=== PATIENT | male | born 1945 | race Caucasian/White ===

== ENCOUNTER 2017-03-26 06:57 | Day surgery (SDC) | payer MEDICARE, BC ==
[~2017-03-26 06:57] MED LIST: Lactated Ringers 1,000 ML IV SCH; Lidocaine 1%/Sod Bicarbonate in NS 8.4% 1 ML Syringe PRN; Sodium Chloride 0.9% 10 ML Syringe FLUSH PRN
[2017-03-26] MEDS ORDERED: Propofol 200 MG/20 ML SDV ONE ×2 (07:35→10:14)
--- NOTE | 2017-03-26 07:39 | PCM.PREANE ---
Preanesthetic Assessment - Anesthesia/Transfusion/Family Hx Anesthesia History: Prior Anesthesia Without Reaction Family History of Anesthesia Reaction: No Transfusion History: Prior Transfusion Without Reaction Intubation History: Unknown - Review of Systems General: No Symptoms Pulmonary: No Symptoms Cardiovascular: No Symptoms Gastrointestinal: No Symptoms Neurological: No Symptoms Other: Reports: None - Physical Assessment NPO Status Date: 03/26/17 NPO Status Time: 22:00 Pulse: 50 O2 Sat by Pulse Oximetry: 95 Respiratory Rate: 16 Blood Pressure: 122/77 Temperature: 97 C Height: 1.78 m ASA Class: 3 Airway Class: Mallampati = 1 Dentition: Reports: Missing Tooth/Teeth (missing multiple ) Thyro-Mental Finger Breadths: 3 Mouth Opening Finger Breadths: 5 ROM/Head Extension: Full Lungs: Clear to Auscultation, Normal Respiratory Effort Cardiovascular: Regular Rate, Regular Rhythm - Allergies Allergies/Adverse Reactions: Allergies Allergy/AdvReac Type Severity Reaction Status Date / Time No Known Allergies Allergy Verified 09/09/14 13:16 - Blood Blood Available: No - Anesthesia Plan Beta [place]: Carvedilol Med Last Dose Date: 03/25/17 Med Last Dose Time: 22:00 - Acknowledgements Anesthesia Type Planned: MAC Pt an Appropriate Candidate for the Planned Anesthesia: Yes Alternatives and Risks of Anesthesia Discussed w Pt/Guardian: Yes Pt/Guardian Understands and Agrees with Anesthesia Plan: Yes PreAnesthesia Questionnaire HEENT History: Reports: Sinusitis Cardiovascular History: Reports: Afib, Angina, Other (See Below) Other Cardiovascular History: IVC filter, chest pain, heart disease Respiratory History: Reports: Bronchitis, Recurrent, PE Genitourinary History: Reports: BPH, Urinary Incontinence, Other (See Below) Other Genitourinary History: urinary frequency, overactive bladder HEALTHCARE ACCOUNT MANAGER History: Reports: None Musculoskeletal History: Reports: Other (See Below) Other Musculoskeletal History: chronic pain syndrome Neurological History: Reports: Neuropathy, Peripheral, Seizure, Other (See Below ) Other Neuro History: convulsions Psychiatric History: Reports: Anxiety, Bipolar, Depression Endocrine/Metabolic History: Reports: Diabetes, Type II, Hypothyroidism Hematologic History: Reports: Anemia, Iron Deficiency, Other (See Below) Other Hematologic History: clotting disorder Immunologic History: Reports: None Oncologic (Cancer) History: Reports: Prostate Dermatologic History: Reports: None - Past Surgical History Head Surgeries/Procedures: Reports: None GI Surgical History: Reports: Colonoscopy, EGD - SUBSTANCE USE Smoking Status *Q: Never Smoker Second Hand Smoke Exposure: No Days Per Week of Alcohol Use: 0 Recreational Drug Use History: No - HOME MEDS Home Medications: Home Meds Acetaminophen [Acetaminophen ER] 650 mg PO Q6H PRN 03/23/17 [History] Acetaminophen/oxyCODONE [Percocet 325-5 MG] 2 tab PO BID 03/23/17 [History] Ascorbate Calcium [Vitamin C] 500 mg PO DAILY 03/23/17 [History] Bacitracin [Bacitracin Oint 1 GM] 1 applic NASBOTH BID 03/23/17 [History] Calcium Carbonate/Vitamin D3 [Calcium 600 + Vit D 400 Softgl] 1 tab PO BID 03/23 [History] Carvedilol [Coreg] 3.125 mg PO BID 03/23/17 [History] Chlorhexidine Gluconate [Peridex 0.12% Rinse] 15 ml PO DAILY 03/23/17 [History] ClonazePAM [KlonoPIN] 1 mg PO BEDTIME 03/23/17 [History] Docusate Sodium 100 mg PO BID 03/23/17 [History] Escitalopram Oxalate [Lexapro] 40 mg PO BID 03/23/17 [History] Ferrous Sulfate [Iron] 325 mg PO BID 03/23/17 [History] Fluticasone Propionate [Flonase Allergy Relief] 1 spray NASBOTH DAILY PRN [History] Gabapentin [Neurontin] 600 mg PO TID 03/23/17 [History] Ibuprofen 400 mg PO Q6H PRN 03/23/17 [History] LORazepam 0.5 mg PO DAILY 03/23/17 [History] LORazepam [Ativan] 0.5 mg PO DAILY 03/23/17 [History] Levothyroxine 125 mcg PO DAILY 03/23/17 [History] Megadrox 2 tab PO DAILY 03/23/17 [History] Miconazole Nitrate [Fungoid Tincture] 1 applic TOP BID 03/23/17 [History] Nitroglycerin [Nitrostat] 0.4 mg SL Q5M PRN 03/23/17 [History] Oxybutynin Chloride [Ditropan Xl] 10 mg PO DAILY 03/23/17 [History] Pantoprazole Sodium [Protonix] 20 mg PO DAILY 03/23/17 [History] Phenazopyridine [Pyridium] 100 mg PO TID 03/23/17 [History] Phenytoin Sodium Extended 200 mg PO BID 03/23/17 [History] Polyethylene Glycol 3350 17 gm PO DAILY 03/23/17 [History] Pravastatin Sodium 5 mg PO DAILY 03/23/17 [History] Saliva Substitution Combo No.9 [Biotene] 1 dose PO QID PRN 03/23/17 [History] Sodium Fluoride [Fluoridex] 1 applic TOP BID 03/23/17 [History] Tamsulosin [Flomax] 0.4 mg PO DAILY 03/23/17 [History] Testadrox 2 tab PO BEDTIME 03/23/17 [History] Vit A/C/E AC/Znox/Cupric Oxide [Eye Vitamin-Minerals Tablet] 1 tab PO DAILY [History] Warfarin Sodium [Coumadin] 7.5 mg PO MOFR 03/23/17 [History] Warfarin [Coumadin] 5 mg PO SUTUWETHSA 03/23/17 [History] Zonisamide [Zonegran] 200 mg PO BID 03/23/17 [History] oxyCODONE ER [OxyCONTIN] 10 mg PO BID 03/23/17 [History] tiZANidine HCl [Tizanidine HCl] 8 mg PO DAILY PRN 03/23/17 [History] - CURRENT (IN HOUSE) MEDS Current Meds: Current Medications Lactated Ringer's (Ringers, Lactated) 1,000 mls @ 125 mls/hr IV ASDIRECTED NEETA Stop: 03/26/17 23:00 Last Admin: 03/26/17 07:25 Dose: 125 mls/hr Lidocaine/Sodium Bicarbonate (Buffered Lidocaine 1% In Ns 8.4%) 0.25 ml .XX ONETIME PRN PRN Reason: Prior to IV Start Stop: 03/26/17 18:00 Last Admin: 03/26/17 07:25 Dose: 0.25 ml Sodium Chloride (Saline Flush) 10 ml FLUSH ASDIRECTED PRN PRN Reason: Keep Vein Open Stop: 03/26/17 18:00 Discontinued Medications Lidocaine HCl (Xylocaine-Mpf 1%) Confirm Administered Dose 4 mls @ as directed .ROUTE .[facility] ONE Stop: 03/26/17 07:41 Propofol (Diprivan 20 Ml) Confirm Administered Dose 400 mg .ROUTE .[facility] ONE Stop: 03/26/17 07:36
[2017-03-26] MEDS ORDERED: Lidocaine 1% 4 ML ONE (07:40)
--- NOTE | 2017-03-26 10:12 | PCM.OPNOTE ---
- General Post-Op/Procedure Note Date of Surgery/Procedure: 03/26/17 Operative Procedure(s): EGDwith bx/colonoscopy Pre Op Diagnosis: anemia Post-Op Diagnosis: Same Anesthesia Technique: MAC Primary Surgeon: Cal Estrada EBL in mLs: 0 Complications: None Condition: Good
--- NOTE | 2017-03-26 10:19 | PCM48HPAN ---
Post Anesthesia Note - EVALUATION WITHIN 48HRS OF ANESTHETIC Vital Signs in Normal Range: Yes Patient Participated in Evaluation: Yes Respiratory Function Stable: Yes Airway Patent: Yes Cardiovascular Function Stable: Yes Hydration Status Stable: Yes Pain Control Satisfactory: Yes Nausea and Vomiting Control Satisfactory: Yes Mental Status Recovered: Yes
[2017-03-26 10:44] VITALS: BP 120/73
--- NOTE | 2017-03-26 14:48 | OR ---
DATE OF OPERATION: 03/26/2017 SURGEON: Cal Estrada MD PREOPERATIVE DIAGNOSIS: Anemia. POSTOPERATIVE DIAGNOSIS: Anemia. OPERATION PERFORMED: Esophagogastroduodenoscopy with biopsy. FINDINGS: Mild duodenitis in the posterior portion of the duodenal bulb, pyloric channel normal, antrum showed some inflammation around the antrum and in the body of the stomach suggesting gastritis. Biopsy of the antrum was performed. J-maneuver showed an intact fundus and the hiatus showed a small sliding hiatal hernia. GE junction was viewed with slight irregularity and located at 36 cm. There was a sliding hiatal hernia. Rest of the esophagus was viewed as the scope withdrawn. DESCRIPTION OF PROCEDURE: The patient was taken to the endoscopy room, placed in a supine position, connected to monitoring equipment, given IV sedation. Bite block was inserted and video Olympus gastroscope placed in a posterior oropharynx under direct vision, threaded past the cricopharyngeus, down the esophagus, into the stomach. The stomach was insufflated and the scope passed through the pylorus to the second portion of the duodenum. The second portion of the duodenum, duodenal bulb, and pyloric channel were unremarkable except from petechiae and swelling in the posterior duodenal bulb. The antrum showed a little petechiae and this was also seen in the body of the stomach and select areas. Biopsy of the antrum was performed. J-maneuver was performed showing a hiatal hernia sliding type. Fundus was unremarkable. The scope was then withdrawn to the GE junction which was located about 37 cm to 36 cm, showed irregular Z-line, mild in nature, and no acute inflammation was noted. Rest of the esophagus was viewed as the scope withdrawn, unremarkable. The patient tolerated the procedure, sent to recovery, and specimen sent to Pathology in a labeled container. IV sedation will be continued for the patient for colonoscopy. ANESTHESIA: ESTIMATED BLOOD LOSS: MMODAL /[id number]
--- NOTE | 2017-03-26 14:51 | OR ---
DATE OF OPERATION: 03/26/2017 SURGEON: Cal Estrada MD PREOPERATIVE DIAGNOSIS: Anemia and guaiac-positive stools. POSTOPERATIVE DIAGNOSIS: Anemia and guaiac-positive stools. OPERATION PERFORMED: Colonoscopy to the cecum. FINDINGS: Some mild internal hemorrhoids and some loss of sphincter tone. There is no angiodysplasia, neoplasia, large tumor masses, or ulcerations, or diverticulum noted. ANESTHESIA: Procedure done under IV sedation. DESCRIPTION OF PROCEDURE: The patient was taken to the operating room and connected to monitoring equipment, underwent upper GI endoscopy after IV sedation given. IV sedation was continued for colonoscopy. He was placed in left lateral position. Perianal areas inspected and it was normal. Rectal exam showed weak sphincter tone. A video Olympus colonoscope was introduced into the rectum and threaded up to the cecum, where the appendicular orifice and ileocecal valve were noted. Prep was [place] Cleansing Score grade B, pockets of stool were able to be aspirated around the cecum, sigmoid colon, and rectum. The scope was then slowly withdrawn showing the cecum, ascending colon, transverse colon, descending colon, sigmoid colon, and rectum. Retroflexed view was done. The patient tolerated the procedure, sent to recovery room in a stable condition. He will be followed up with Dr. Flores. ESTIMATED BLOOD LOSS: MMODAL /[id number]
== END 2017-03-26 11:25 | disposition home or self-care (01) ==
LOC: JD.SDS 06:57
PROVIDERS: ATTEND Surgery
PROC: 0DB98ZX Excision of Duodenum, Via Natural or Artificial Opening Endoscopic, Diagnostic (ICD-10-PCS; principal; 2017-03-26)
PROC: 0DJD8ZZ Inspection of Lower Intestinal Tract, Via Natural or Artificial Opening Endoscopic (ICD-10-PCS; 2017-03-26)
DX: K29.80 Duodenitis without bleeding (principal); K44.9 Diaphragmatic hernia without obstruction or gangrene; D50.9 Iron deficiency anemia, unspecified; K64.8 Other hemorrhoids; I48.91 Unspecified atrial fibrillation; E11.42 Type 2 diabetes mellitus with diabetic polyneuropathy; N40.1 Benign prostatic hyperplasia with lower urinary tract symptoms; N39.498 Other specified urinary incontinence; R35.0 Frequency of micturition; E03.9 Hypothyroidism, unspecified; G89.4 Chronic pain syndrome; F31.9 Bipolar disorder, unspecified; G40.909 Epilepsy, unspecified, not intractable, without status epilepticus; F41.9 Anxiety disorder, unspecified; Z79.891 Long term (current) use of opiate analgesic; Z79.01 Long term (current) use of anticoagulants; Z79.899 Other long term (current) drug therapy; Z95.818 Presence of other cardiac implants and grafts; Z98.890 Other specified postprocedural states; Z87.891 Personal history of nicotine dependence; Z85.46 Personal history of malignant neoplasm of prostate; Z86.711 Personal history of pulmonary embolism
CPT/HCPCS: 36415; 43239; 45378; 85610; 88305; J7120; 00810; J2704

== ENCOUNTER 2017-04-11 13:40 | Emergency (ER) | payer MEDICARE, BC, MEDICAID ==
[2017-04-11] MEDS ORDERED: Sodium Chloride 0.9% 10 ML Syringe FLUSH PRN (13:55)
[2017-04-11] MEDS ORDERED: HYDROmorphone 0.5 MG/0.5 ML Syringe IVPUSH ONE (14:51)
--- NOTE | 2017-04-11 15:21 | EDM.PDOC ---
ED HPI GENERAL MEDICAL PROBLEM - General Chief Complaint: Head Injury Stated Complaint: [facility] Time Seen by Provider: 04/11/17 13:44 Source of Information: Reports: Patient History Limitations: Reports: No Limitations - History of Present Illness INITIAL COMMENTS - FREE TEXT/NARRATIVE: The patient was outside walking on the side walk and he bent over to clean something off of the sidewalk and he fell forward and hit his head. He was a little confused when nursing staff got there but when EMS arrived he was talking and alert. He complains of a headache, neck pain, left upper chest pain , bilateral knee pain and left thumb pain. He denies abdominal pain or pelvic pain. Onset: Sudden Duration: Minutes: Location: Reports: Head, Neck, Upper Extremity, Left, Lower Extremity, Left, Lower Extremity, Right Quality: Reports: Sharp Severity: Moderate Improves with: Reports: None Worsens with: Reports: Movement Context: Reports: Activity (He bent over and fell on the sidewalk) Associated Symptoms: Reports: Headaches. Denies: Chest Pain, Cough, Fever/ Chills, Nausea/Vomiting, Shortness of Breath Left Face Pain Score (Numeric/FACES): 8 Bilateral Knee Pain Score (Numeric/FACES): 6 - Related Data Allergies Allergy/AdvReac Type Severity Reaction Status Date / Time No Known Allergies Allergy Verified 04/11/17 13:53 Home Meds: Home Meds Acetaminophen [Acetaminophen ER] 650 mg PO Q6H PRN 03/23/17 [History] Acetaminophen/oxyCODONE [Percocet 325-5 MG] 2 tab PO BID 03/23/17 [History] Ascorbate Calcium [Vitamin C] 500 mg PO DAILY 03/23/17 [History] Bacitracin [Bacitracin Oint 1 GM] 1 applic NASBOTH BID 03/23/17 [History] Calcium Carbonate/Vitamin D3 [Calcium 600 + Vit D 400 Softgl] 1 tab PO BID 03/23 [History] Carvedilol [Coreg] 3.125 mg PO BID 03/23/17 [History] Chlorhexidine Gluconate [Peridex 0.12% Rinse] 15 ml PO DAILY 03/23/17 [History] ClonazePAM [KlonoPIN] 1 mg PO BEDTIME 03/23/17 [History] Docusate Sodium 100 mg PO BID 03/23/17 [History] Escitalopram Oxalate [Lexapro] 40 mg PO BID 03/23/17 [History] Ferrous Sulfate [Iron] 325 mg PO BID 03/23/17 [History] Fluticasone Propionate [Flonase Allergy Relief] 1 spray NASBOTH DAILY PRN [History] Gabapentin [Neurontin] 600 mg PO TID 03/23/17 [History] Ibuprofen 400 mg PO Q6H PRN 03/23/17 [History] LORazepam 0.5 mg PO DAILY 03/23/17 [History] LORazepam [Ativan] 0.5 mg PO DAILY 03/23/17 [History] Levothyroxine 125 mcg PO DAILY 03/23/17 [History] Megadrox 2 tab PO DAILY 03/23/17 [History] Miconazole Nitrate [Fungoid Tincture] 1 applic TOP BID 03/23/17 [History] Nitroglycerin [Nitrostat] 0.4 mg SL Q5M PRN 03/23/17 [History] Oxybutynin Chloride [Ditropan Xl] 10 mg PO DAILY 03/23/17 [History] Pantoprazole Sodium [Protonix] 20 mg PO DAILY 03/23/17 [History] Phenazopyridine [Pyridium] 100 mg PO TID 03/23/17 [History] Phenytoin Sodium Extended 200 mg PO BID 03/23/17 [History] Polyethylene Glycol 3350 17 gm PO DAILY 03/23/17 [History] Pravastatin Sodium 5 mg PO DAILY 03/23/17 [History] Saliva Substitution Combo No.9 [Biotene] 1 dose PO QID PRN 03/23/17 [History] Sodium Fluoride [Fluoridex] 1 applic TOP BID 03/23/17 [History] Tamsulosin [Flomax] 0.4 mg PO DAILY 03/23/17 [History] Testadrox 2 tab PO BEDTIME 03/23/17 [History] Vit A/C/E AC/Znox/Cupric Oxide [Eye Vitamin-Minerals Tablet] 1 tab PO DAILY [History] Warfarin Sodium [Coumadin] 7.5 mg PO MOFR 03/23/17 [History] Warfarin [Coumadin] 5 mg PO SUTUWETHSA 03/23/17 [History] Zonisamide [Zonegran] 200 mg PO BID 03/23/17 [History] oxyCODONE ER [OxyCONTIN] 10 mg PO BID 03/23/17 [History] tiZANidine HCl [Tizanidine HCl] 8 mg PO DAILY PRN 03/23/17 [History] Past Medical History HEENT History: Reports: Cataract, Sinusitis Cardiovascular History: Reports: Afib, Angina, Other (See Below) Other Cardiovascular History: IVC filter, chest pain, heart disease Respiratory History: Reports: Bronchitis, Recurrent, PE Genitourinary History: Reports: BPH, Urinary Incontinence, Other (See Below) Other Genitourinary History: urinary frequency, overactive bladder LATEXER History: Reports: None Musculoskeletal History: Reports: Other (See Below) Other Musculoskeletal History: chronic pain syndrome Neurological History: Reports: Neuropathy, Peripheral, Seizure, Other (See Below ) Other Neuro History: convulsions Psychiatric History: Reports: Anxiety, Bipolar, Depression Endocrine/Metabolic History: Reports: Diabetes, Type II, Hypothyroidism Hematologic History: Reports: Anemia, Iron Deficiency, Other (See Below) Other Hematologic History: clotting disorder Immunologic History: Reports: None Oncologic (Cancer) History: Reports: Prostate Dermatologic History: Reports: None - Past Surgical History Head Surgeries/Procedures: Reports: None HEENT Surgical History: Reports: Cataract Surgery, Other (See Below) Other HEENT Surgeries/Procedures: retina surgery GI Surgical History: Reports: Colonoscopy, EGD Social & Family History - Family History Family Medical History: Noncontributory - Tobacco Use Smoking Status *Q: Never Smoker Years of Tobacco use: 1 Used Tobacco, but Quit: Yes Month Tobacco Last Used: Second Hand Smoke Exposure: No - Caffeine Use Caffeine Use: Reports: Coffee - Alcohol Use Days Per Week of Alcohol Use: 0 - Recreational Drug Use Recreational Drug Use: No - Living Situation & Occupation Living situation: Reports: Alone ED ROS GENERAL - Review of Systems Review Of Systems: See Below Constitutional: Reports: No Symptoms HEENT: Reports: No Symptoms Respiratory: Reports: No Symptoms Cardiovascular: Reports: No Symptoms Endocrine: Reports: No Symptoms GI/Abdominal: Reports: No Symptoms : Reports: No Symptoms Musculoskeletal: Reports: Neck Pain, Other (Left thumb pain, bilateral knee pain ) ED EXAM, HEAD INJURY - Physical Exam Exam: See Below Exam Limited By: No Limitations General Appearance: Alert, No Apparent Distress Head: Other (Dried crusted blood to the right lateral eyebrow) Eyes: Bilateral Eye: EOMI Ears: Normal External Exam Nose: Normal Inspection Neck: Other (Midline tenderness to the base of the skull) Respiratory: No Respiratory Distress, Lungs Clear, Normal Breath Sounds, Other ( Pain upon palpation to the left upper chest) Cardiovascular: Regular Rate, Rhythm, No Edema, No Murmur GI/Abdominal Exam: Soft, Non-Tender, No Organomegaly, No Mass Back Exam: Other (Mild pain upon palpation to the right upper lateral back) Extremities: Other (Abrasions and pain upon palpation to bilateral knees. Pain upon palpation with edema to the left thumb.) ED LACERATION/WOUND & [place] PROC - Laceration/Wound Repair Right Face Lac/wound length in cm: 2 Appearance: Subcutaneous, Linear Anesthetic Type: Local Local Anesthesia - Lidocaine (Xylocaine): 1% with EPI Skin Prep: Saline Exploration/Debridement/Repair: Wound Explored, In a Bloodless Field, Explored to Base Closed with: Sutures Suture Size: 4-0 # of Sutures: 4 Suture Type: Nylon, Interrupted, Simple Tetanus Status Addressed: Yes Complications: No Course - Vital Signs Last Recorded V/S: Last Vital Signs Temp 96.8 F 04/11/17 13:46 Pulse 60 04/11/17 13:46 Resp 16 04/11/17 13:46 BP 111/77 04/11/17 13:46 Pulse Ox 93 L 04/11/17 13:46 - Orders/Labs/Meds Orders: Active Orders 24 hr Category Date Time Status Cardiac Monitoring [RC] . DIRECTED Care 04/11/17 13:56 Active Peripheral IV Care [RC] . DIRECTED Care 04/11/17 13:56 Active Cervical Spine wo Cont [CT] Stat Exams 04/11/17 13:57 Taken Chest 1V Frontal [CR] Stat Exams 04/11/17 13:56 Taken Fingers Thumb Lt FA [CR] Stat Exams 04/11/17 13:57 Taken Head wo Cont [CT] Stat Exams 04/11/17 13:56 Taken Knee 1V or 2V Lt [CR] Stat Exams 04/11/17 13:57 Taken Knee 1V or 2V Rt [CR] Stat Exams 04/11/17 13:57 Taken Sodium Chloride 0.9% [Saline Flush] Med 04/11/17 13:55 Active 10 ml FLUSH ASDIRECTED PRN Peripheral IV Insertion Adult [OM.PC] Stat Oth 04/11/17 13:55 Ordered Medication Orders Sodium Chloride (Saline Flush) 10 ml FLUSH ASDIRECTED PRN PRN Reason: Keep Vein Open Last Admin: 04/11/17 14:34 Dose: 10 ml Labs: Laboratory Tests 04/11/17 04/11/17 04/11/17 Range/Units 13:55 14:30 14:30 WBC 3.89 L (4.23-9.07) K/mm3 RBC 3.76 L (4.63-6.08) M/mm3 Hgb 13.1 L (13.7-17.5) gm/L Hct 38.7 L (40.1-51.0) % MCV 102.9 H (79.0-92.2) fl MCH 34.8 H (25.7-32.2) pg MCHC 33.9 (32.2-35.5) g/dl RDW Std Deviation 48.2 H (35.1-43.9) fL Plt Count 124 L (163-337) K/mm3 MPV 8.7 L (9.4-12.3) fl Neut % (Auto) 65.2 (34.0-67.9) % Lymph % (Auto) 21.9 (21.8-53.1) % [place] % (Auto) 11.3 (5.3-12.2) % Eos % (Auto) 1.0 (0.8-7.0) Baso % (Auto) 0.3 (0.1-1.2) % Neut # (Auto) 2.54 (1.78-5.38) K/mm3 Lymph # (Auto) 0.85 L (1.32-3.57) K/mm3 [place] # (Auto) 0.44 (0.30-0.82) K/mm3 Eos # (Auto) 0.04 (0.04-0.54) K/mm3 Baso # (Auto) 0.01 (0.01-0.08) K/mm3 PT 23.4 H (8.0-13.0) SECONDS INR 2.05 Sodium 141 (136-145) mEq/L Potassium 4.5 (3.5-5.1) mEq/L Chloride 108 H (98-107) mEq/L Carbon Dioxide 25 (21-32) mEq/L Anion Gap 12.5 (5-15) BUN 13 (7-18) mg/dL Creatinine 1.0 (0.7-1.3) mg/dL Est Cr Clr Drug Dosing 70.97 mL/min Estimated GFR (MDRD) > 60 (>60) mL/min BUN/Creatinine Ratio 13.0 L (14-18) Glucose 121 H (80-115) mg/dL Calcium 8.7 (8.5-10.1) mg/dL Total Bilirubin 0.3 (0.2-1.0) mg/dL AST 33 (15-37) U/L ALT 35 (16-63) U/L Alkaline Phosphatase 154 H (46-116) U/L Total Protein 6.5 (6.4-8.2) g/dl Albumin 3.4 (3.4-5.0) g/dl Globulin 3.1 gm/dL Albumin/Globulin Ratio 1.1 (1-2) Lipase 137 (73-393) U/L Meds: Medications Generic Name Dose Route Start Last Admin Trade Name Joselin PRN Reason Stop Dose Admin Sodium Chloride 10 ml 04/11/17 13:55 04/11/17 14:34 Saline Flush FLUSH 10 ml ASDIRECTED PRN Administration Keep Vein Open Discontinued Medications Generic Name Dose Route Start Last Admin Trade Name Joselin PRN Reason Stop Dose Admin Hydromorphone HCl 0.5 mg 04/11/17 14:51 04/11/17 14:58 Dilaudid IVPUSH 04/11/17 14:52 0.5 mg ONETIME ONE Administration Lidocaine/Epinephrine 20 ml 04/11/17 15:28 04/11/17 15:44 Xylocaine 1% With Epinephrine 1:100,000 INJECT 04/11/17 15:29 20 ml ONETIME ONE Administration - Re-Assessments/Exams Free Text/Narrative Re-Assessment/Exam: 04/11/17 15:23 The patient came by ambulance in full c-spine precautions. I ordered an IV, labs, CT of his head and cervical spine. The patient is on coumadin. His CXR looked good. The x-ray of his left thumb was negative for fracture. The x- rays of his knees look good. The CT of his head and cervical spine show no acute injuries. His CBC looks good. His CMP shows an elevated glucose of 121. His alk phos was elevated at 154. His lipase was negative. His INR was therapeutic at 2.05. My nurse is cleaning up his head and I will see if anything needs to be sutured. 04/11/17 15:55 He has a 2cm laceration to the right lateral eyebrow. I sutured that closed. Departure - Departure Time of Disposition: 16:05 Disposition: Home, Self-Care 01 Condition: Good Clinical Impression: Abrasion of knee, bilateral Fall Qualifiers: Encounter type: initial encounter Qualified Code(s): W19.XXXA - Unspecified fall, initial encounter Laceration of face Qualifiers: Encounter type: initial encounter Qualified Code(s): S01.81XA - Laceration without foreign body of other part of head, initial encounter Sprain of left thumb Qualifiers: Encounter type: initial encounter Sprain of finger site: unspecified site Qualified Code(s): S63.602A - Unspecified sprain of left thumb, initial encounter Cervical strain Qualifiers: Encounter type: initial encounter Qualified Code(s): S16.1XXA - Strain of muscle, fascia and tendon at neck level, initial encounter - Discharge Information Referrals: Nestor Flores MD [Primary Care Provider] - 1 Week Forms: ED Department Discharge Additional Instructions: Wash the laceration with warm soapy water 2 times per day and apply antibiotics after. Have the sutures removed in 1 week. Look for any sign of infection such as redness, swelling, pain or drainage. If you see any signs of infection come back or see your doctor sooner. Take tylenol for any pain. Please return if your pain gets worse. - My Orders Last 24 Hours: My Active Orders 04/11/17 13:55 Sodium Chloride 0.9% [Saline Flush] 10 ml FLUSH ASDIRECTED PRN Peripheral IV Insertion Adult [OM.PC] Stat 04/11/17 13:56 Cardiac Monitoring [RC] . DIRECTED Peripheral IV Care [RC] . DIRECTED Chest 1V Frontal [CR] Stat Head wo Cont [CT] Stat 04/11/17 13:57 Cervical Spine wo Cont [CT] Stat Fingers Thumb Lt FA [CR] Stat Knee 1V or 2V Lt [CR] Stat Knee 1V or 2V Rt [CR] Stat - Assessment/Plan Last 24 Hours: My Active Orders 04/11/17 13:55 Sodium Chloride 0.9% [Saline Flush] 10 ml FLUSH ASDIRECTED PRN Peripheral IV Insertion Adult [OM.PC] Stat 04/11/17 13:56 Cardiac Monitoring [RC] . DIRECTED Peripheral IV Care [RC] . DIRECTED Chest 1V Frontal [CR] Stat Head wo Cont [CT] Stat 04/11/17 13:57 Cervical Spine wo Cont [CT] Stat Fingers Thumb Lt FA [CR] Stat Knee 1V or 2V Lt [CR] Stat Knee 1V or 2V Rt [CR] Stat
[2017-04-11] MEDS ORDERED: Lidocaine 1% with EPINEPHrine 1:100,000 20 ML MDV INJECT ONE (15:28)
[2017-04-11 16:51] VITALS: BP 117/75
--- NOTE | 2017-04-12 11:03 | CR ---
Right knee: AP and lateral views of the right knee were obtained. Comparison: No previous knee exam. Medial and lateral joint spaces are maintained in height. Incidental spur at the attachment of the quadriceps tendon to the patella is seen. No acute fracture or other bony abnormality is identified. Impression: 1. Spur noted at the attachment of the quadriceps tendon to the patella. 2. Two-view right knee exam is otherwise unremarkable. Diagnostic code #2
--- NOTE | 2017-04-12 11:03 | CR ---
Left thumb: Three views of the left thumb were obtained. Lucent line identified within the corner base of the middle phalanx of the thumb. This is seen on only one view. Difficult to completely exclude a small nondisplaced avulsion fracture. Mild degenerative change noted within the CMC joint of the thumb. Slight degenerative change noted within the IP joint of the thumb. No additional bony abnormality is appreciated. Mild soft tissue swelling appears to be present. Impression: 1. Equivocal nondisplaced corner fracture involving the proximal phalanx of the left thumb. As mentioned above, this is seen on only one view. Please correlate if patient has symptoms of this. 2. Mild degenerative change as noted above. Soft tissue swelling. Diagnostic code #3
--- NOTE | 2017-04-12 11:03 | CR ---
Left knee: AP and lateral views of the left knee were obtained. Comparison: No previous left knee x-ray, previous MRI left knee exam of 05/31/15 is available. Medial and lateral joint spaces are maintained in height. No joint effusion is seen. Incidental spur noted at the attachment of the quadriceps tendon to the patella. No acute fracture or other bony abnormality is identified. Impression: 1. Incidental spur off the patella. 2. Two-view left knee exam is otherwise unremarkable. Diagnostic code #2
--- NOTE | 2017-04-12 11:03 | CT ---
CT cervical spine Technique: Multiple axial sections were obtained from above C1 inferiorly to the bottom of T1. Reconstructed sagittal and coronal images were reviewed. Comparison: Previous cervical spine CT exam of 04/18/14. Findings: Disc space narrowing noted from C3-C4 through C6-C7 most prominent at C5-C6. Cystic change noted within the C5 vertebral body which is stable from prior exam. Lesser degenerative cyst noted within the C3 vertebral body which is stable. Degenerative change noted between the dens and anterior arch of C1. Mastoid sinuses and middle ear cavities are clear. Posterior skull base is intact. Moderate right-sided neural foraminal stenosis noted at C4-C5. Mild to moderate left-sided neural foraminal stenosis noted at C4-C5. Severe right-sided neural foraminal stenosis noted at C5-C6. Mild to moderate left-sided neural foraminal stenosis noted at C5-C6. Mild diffuse degenerative apophyseal change is seen. Incidental ligamentum nuchal calcification is present. No acute fracture is identified. No abnormal subluxation is seen on the reconstructed sagittal images. Impression: 1. Degenerative change as noted above. Findings slightly progressed in severity from prior exam. 2. No acute fracture or abnormal subluxation is seen. Diagnostic code #3 I agree with preliminary report issued by [facility] ([facility] report finalized on 04/11/17, 3:30 PM Central Time)
--- NOTE | 2017-04-12 11:04 | CT ---
Head CT Technique: Multiple axial sections through the brain were obtained. Intravenous contrast was not utilized. Comparison: Previous head CT exam of 09/09/14. Prior MRI brain of 05/31/15 is also available. Findings: Ventricles along with basal cisterns and sulci over the convexities are moderately prominent. Minimal diminished density noted within portions of the periventricular white matter compatible with small vessel ischemic demyelination change. 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 No other abnormal parenchymal densities are seen. No evidence of intracranial hemorrhage. No midline shift or mass effect is seen. Mild atherosclerotic calcification seen within the carotid siphon. Incidental calcified scalp lesions are seen. Slight soft tissue swelling seen superior to the right orbit within the scalp. Bone window settings were reviewed which show the visualized sinuses to appear clear. Nasal bone fracture is seen which is most likely old. No acute calvarial abnormality is appreciated. Impression: 1. Senescent change as described above. 2. Mild soft tissue swelling above the right orbit. 3. Other incidental findings. No acute intracranial abnormality is identified. Diagnostic code #2 I agree with preliminary report issued by [facility] ([facility] report finalized on 04/11/17, 3:33 PM Central Time)
--- NOTE | 2017-04-12 11:04 | CR ---
Chest: AP view of the chest was obtained. Comparison: Previous chest x-ray of 09/09/14. Heart size appears within normal limits for AP technique. Tortuous thoracic aorta is seen. Lungs show no acute infiltrates. Bony structures are grossly intact. Impression: 1. Nothing acute is appreciated on AP chest x-ray. Diagnostic code #2
== END 2017-04-11 16:43 | disposition home or self-care (01) ==
LOC: JD.ED 13:40
DX: S01.81XA Laceration without foreign body of other part of head, initial encounter (principal); S16.1XXA Strain of muscle, fascia and tendon at neck level, initial encounter; S63.602A Unspecified sprain of left thumb, initial encounter; S80.212A Abrasion, left knee, initial encounter; S80.211A Abrasion, right knee, initial encounter; I48.91 Unspecified atrial fibrillation; F41.9 Anxiety disorder, unspecified; F32.9 Major depressive disorder, single episode, unspecified; E03.9 Hypothyroidism, unspecified; E11.42 Type 2 diabetes mellitus with diabetic polyneuropathy; Z98.49 Cataract extraction status, unspecified eye; Z98.890 Other specified postprocedural states; Z85.46 Personal history of malignant neoplasm of prostate; Z79.899 Other long term (current) drug therapy; W19.XXXA Unspecified fall, initial encounter; Y92.480 Sidewalk as the place of occurrence of the external cause
CPT/HCPCS: 12011; 36415; 70450; 71010; 72125; 73140; 73560; 80053; 83690; 85025; 85610; 96374; 99285; J1170; J7050; 99284-25

== ENCOUNTER 2017-07-14 22:27 | Emergency (ER) | payer MEDICARE, BC ==
[2017-07-14 23:07] VITALS: BP 111/74
--- NOTE | 2017-07-14 23:45 | EDM.PDOC ---
ED HPI GENERAL MEDICAL PROBLEM - General Chief Complaint: Cardiovascular Problem Time Seen by Provider: 07/14/17 23:21 Source of Information: Reports: Patient History Limitations: Reports: No Limitations - History of Present Illness INITIAL COMMENTS - FREE TEXT/NARRATIVE: This is a 72-year-old male. Tonight after taking off his pressure stockings he noted increasing swelling of his left lower extremity. 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 He has an umbrella in the inferior vena cava however he had the PE after he had the umbrella placed. He is on Eliquis presently. He denies any shortness of breath he denies any chest pain with breathing he denies any abdominal symptoms. He does state he has some mild soreness in the left groin area and his left leg is swollen. Treatments LINE WALKER: Reports: Other (see below) Other Treatments LINE WALKER: on eliquis Left Lower Leg Pain Score (Numeric/FACES): 5 - Related Data Allergies Allergy/AdvReac Type Severity Reaction Status Date / Time No Known Allergies Allergy Verified 04/11/17 13:53 Home Meds: Home Meds Acetaminophen [Acetaminophen ER] 650 mg PO Q6H PRN 03/23/17 [History] Ascorbate Calcium [Vitamin C] 500 mg PO DAILY 03/23/17 [History] Bacitracin [Bacitracin Oint 1 GM] 1 applic NASBOTH BID 03/23/17 [History] Calcium Carbonate/Vitamin D3 [Calcium 600 + Vit D 400 Softgl] 1 tab PO BID 03/23 [History] Carvedilol [Coreg] 3.125 mg PO BID 03/23/17 [History] Chlorhexidine Gluconate [Peridex 0.12% Rinse] 15 ml PO DAILY 03/23/17 [History] ClonazePAM [KlonoPIN] 1 mg PO BEDTIME 03/23/17 [History] Docusate Sodium 100 mg PO BID 03/23/17 [History] Escitalopram Oxalate [Lexapro] 40 mg PO BID 03/23/17 [History] Ferrous Sulfate [Iron] 325 mg PO BID 03/23/17 [History] Fluticasone Propionate [Flonase Allergy Relief] 1 spray NASBOTH DAILY PRN [History] Gabapentin [Neurontin] 600 mg PO TID 03/23/17 [History] Ibuprofen 400 mg PO Q6H PRN 03/23/17 [History] LORazepam 0.5 mg PO DAILY 03/23/17 [History] LORazepam [Ativan] 0.5 mg PO DAILY PRN 03/23/17 [History] Levothyroxine 125 mcg PO DAILY 03/23/17 [History] Megadrox 2 tab PO DAILY 03/23/17 [History] Miconazole Nitrate [Fungoid Tincture] 1 applic TOP BID 03/23/17 [History] Nitroglycerin [Nitrostat] 0.4 mg SL Q5M PRN 03/23/17 [History] Oxybutynin Chloride [Ditropan Xl] 10 mg PO DAILY 03/23/17 [History] Pantoprazole Sodium [Protonix] 20 mg PO DAILY 03/23/17 [History] Phenytoin Sodium Extended 200 mg PO BID 03/23/17 [History] Polyethylene Glycol 3350 17 gm PO DAILY 03/23/17 [History] Pravastatin Sodium 5 mg PO DAILY 03/23/17 [History] Saliva Substitution Combo No.9 [Biotene] 1 dose PO QID PRN 03/23/17 [History] Sodium Fluoride [Fluoridex] 1 applic TOP BID 03/23/17 [History] Tamsulosin [Flomax] 0.4 mg PO BID 03/23/17 [History] Testadrox 2 tab PO BEDTIME 03/23/17 [History] Vit A/C/E AC/Znox/Cupric Oxide [Eye Vitamin-Minerals Tablet] 1 tab PO DAILY [History] Zonisamide [Zonegran] 200 mg PO BID 03/23/17 [History] oxyCODONE ER [OxyCONTIN] 10 mg PO BID 03/23/17 [History] tiZANidine HCl [Tizanidine HCl] 8 mg PO DAILY 03/23/17 [History] Acetaminophen/oxyCODONE [Percocet 325-5 MG] 1 tab PO Q6H 07/14/17 [History] Apixaban [Eliquis] 5 mg PO BID 07/14/17 [History] Past Medical History HEENT History: Reports: Cataract, Sinusitis Cardiovascular History: Reports: Afib, Angina, Other (See Below) Other Cardiovascular History: IVC filter, chest pain, heart disease Respiratory History: Reports: Bronchitis, Recurrent, PE Genitourinary History: Reports: BPH, Urinary Incontinence, Other (See Below) Other Genitourinary History: urinary frequency, overactive bladder COUNTER MOLDER History: Reports: None Musculoskeletal History: Reports: Other (See Below) Other Musculoskeletal History: chronic pain syndrome Neurological History: Reports: Neuropathy, Peripheral, Seizure, Other (See Below ) Other Neuro History: convulsions Psychiatric History: Reports: Anxiety, Bipolar, Depression Endocrine/Metabolic History: Reports: Diabetes, Type II, Hypothyroidism Hematologic History: Reports: Anemia, Iron Deficiency, Other (See Below) Other Hematologic History: clotting disorder Immunologic History: Reports: None Oncologic (Cancer) History: Reports: Prostate Dermatologic History: Reports: None - Past Surgical History Head Surgeries/Procedures: Reports: None HEENT Surgical History: Reports: Cataract Surgery, Other (See Below) Other HEENT Surgeries/Procedures: retina surgery GI Surgical History: Reports: Colonoscopy, EGD Social & Family History - Family History Family Medical History: Noncontributory - Tobacco Use Smoking Status *Q: Former Smoker Years of Tobacco use: 1 Used Tobacco, but Quit: Yes Month Tobacco Last Used: 15 years Second Hand Smoke Exposure: No - Caffeine Use Caffeine Use: Reports: Coffee - Alcohol Use Days Per Week of Alcohol Use: 0 - Recreational Drug Use Recreational Drug Use: No - Living Situation & Occupation Living situation: Reports: Alone ED ROS GENERAL - Review of Systems Review Of Systems: See Below Constitutional: Denies: Fever, Chills HEENT: Reports: No Symptoms Respiratory: Denies: Shortness of Breath, Cough Cardiovascular: Denies: Chest Pain Endocrine: Reports: No Symptoms GI/Abdominal: Denies: Abdominal Pain : Reports: No Symptoms Musculoskeletal: Reports: Other (Left lower extremity swelling) Skin: Reports: Other (Chronic brawny skin changes in the lower extremities) Neurological: Reports: No Symptoms Psychiatric: Reports: No Symptoms Hematologic/Lymphatic: Reports: No Symptoms ED EXAM, GENERAL - Physical Exam Exam: See Below Exam Limited By: No Limitations General Appearance: Alert, WD/WN, No Apparent Distress Eye Exam: Bilateral Eye: Normal Inspection Ears: Normal External Exam Nose: Normal Inspection Throat/Mouth: Normal Inspection, Normal Lips, Normal Voice Head: Normocephalic Neck: Supple Respiratory/Chest: No Respiratory Distress, Lungs Clear, Normal Breath Sounds Cardiovascular: Regular Rate, Rhythm, No Murmur GI/Abdominal: Soft, Non-Tender Back Exam: Full Range of Motion Extremities: Other (His entire left lower extremity is swollen compared to the right lower extremity, he does have chronic brawny skin changes noted in both lower extremities the skin itself does not appear to be erythematous or warm, it is just swollen, no other acute findings, palpation of the calf and the posterior area does not reveal a cord even though he has generalized soreness of the entire left leg) Neurological: Alert, Oriented Psychiatric: Normal Affect, Normal Mood Skin Exam: Warm, Dry Course - Vital Signs Last Recorded V/S: Last Vital Signs Temp 96.5 F 07/14/17 23:05 Pulse 57 L 07/14/17 23:05 Resp 20 07/14/17 23:05 BP 111/74 07/14/17 23:05 Pulse Ox 94 L 07/14/17 23:05 - Orders/Labs/Meds Orders: Active Orders 24 hr Category Date Time Status Duplex Lwr Ext Veins Ltd Lt [US] Stat Exams 07/14/17 23:34 Taken - Radiology Interpretation Free Text/Narrative:: Ultrasound shows a acute DVT in the left superficial femoral vein - Re-Assessments/Exams Free Text/Narrative Re-Assessment/Exam: 07/15/17 00:57 I spoke to the patient regarding his DVT and ultrasound results. Departure - Departure Time of Disposition: 01:04 Disposition: Home, Self-Care 01 Condition: Fair Clinical Impression: Acute deep vein thrombosis (DVT) of left lower extremity Qualifiers: Affected thrombotic vein of extremity: femoral Qualified Code(s): I82.412 - Acute embolism and thrombosis of left femoral vein Referrals: Nestor Flores MD [Primary Care Provider] - Forms: ED Department Discharge Additional Instructions: INCREASE THE ELIQUIS to 10 mg TWICE A DAY FOR AT LEAST 7 DAYS, call his family physician on Sunday regarding the DVT and continued evaluation and treatment, use hot packs to the left lower extremity as often as he desires, keep the left leg elevated while he is in bed, limited ambulation to the bathroom and to the cafeteria, follow-up with the ER if his symptoms worsen - My Orders Last 24 Hours: My Active Orders 07/14/17 23:34 VL Duplex Lwr Ext Veins Ltd Lt [US] Stat - Assessment/Plan Last 24 Hours: My Active Orders 07/14/17 23:34 VL Duplex Lwr Ext Veins Ltd Lt [US] Stat
--- NOTE | 2017-07-16 06:45 | US ---
Left lower extremity deep venous ultrasound: Duplex and color flow imaging was obtained of the left common femoral, superficial femoral, popliteal, posterior tibial and peroneal veins. Right common femoral vein also evaluated. Findings: Lack of compression is seen within the superficial femoral vein. Right common femoral vein shows normal compression. Other veins within the left lower extremity show normal compression. Impression: 1. Findings compatible with deep venous thrombosis within the left superficial femoral vein. Diagnostic code #5 Agree with preliminary report issued by [facility] ([facility] preliminary report dictated on 07/15/17, 1:52 AM Central Time)
== END 2017-07-15 01:25 | disposition home or self-care (01) ==
LOC: SUPCPDRO 22:27 → JD.ED 22:27
DX: I82.412 Acute embolism and thrombosis of left femoral vein (principal); E11.40 Type 2 diabetes mellitus with diabetic neuropathy, unspecified; Z87.891 Personal history of nicotine dependence; Z79.899 Other long term (current) drug therapy
CPT/HCPCS: 93971-26-LT; 93971-LT; 99283; 99284-25

== ENCOUNTER 2018-04-29 12:25 | Emergency (ER) | payer MEDICARE, BC, MEDICAID ==
[2018-04-29 12:40] VITALS: BP 119/78
[2018-04-29] MEDS ORDERED: Sodium Chloride 0.9% 10 ML Syringe FLUSH PRN ×2 (12:41→14:23)
--- NOTE | 2018-04-29 13:19 | CR ---
Chest: Portable view of the chest was obtained. Comparison: Prior chest x-ray of 04/11/17. Heart size appears within normal limits for portable technique. Tortuous thoracic aorta is seen. Lungs are clear without acute parenchymal change. Mild widening of the superior mediastinum is seen which is felt to be chronic. Impression: 1. Incidental findings. Nothing acute is appreciated on portable chest x-ray. Diagnostic code #2
--- NOTE | 2018-04-29 13:50 | EDM.PDOC ---
ED HPI GENERAL MEDICAL PROBLEM - General Chief Complaint: Chest Pain Stated Complaint: CHEST PAIN Time Seen by Provider: 04/29/18 12:41 Source of Information: Reports: Patient, RN Notes Reviewed - History of Present Illness INITIAL COMMENTS - FREE TEXT/NARRATIVE: 72 year old male awakened with ant. chest pain about 5 hours ago. States the pain is lower ant. chest worse with deep inspiration. If he does not breath deep no pain. Was totally pain free yesterday. Hx Htn on meds, Hx of prior PE many yrs ago, had an IVC filter placed at that time. Hx of prior PA about 8 yrs ago. Is on coumadin, coreg. in addition to other meds. No abd pain, N/V or diaphoresis. States he does not feel short of breath. Chest Pain Score (Numeric/FACES): 9 - Related Data Allergies Allergy/AdvReac Type Severity Reaction Status Date / Time No Known Allergies Allergy Verified 04/29/18 12:39 Home Meds: Home Meds Acetaminophen [Acetaminophen ER] 650 mg PO Q6H PRN 03/23/17 [History] Ascorbate Calcium [Vitamin C] 500 mg PO DAILY 03/23/17 [History] Bacitracin [Bacitracin Oint 1 GM] 1 applic NASBOTH BID 03/23/17 [History] Calcium Carbonate/Vitamin D3 [Calcium 600 + Vit D 400 Softgl] 1 tab PO BID 03/23 [History] Carvedilol [Coreg] 3.125 mg PO BID 03/23/17 [History] Chlorhexidine Gluconate [Peridex 0.12% Rinse] 15 ml PO DAILY 03/23/17 [History] ClonazePAM [KlonoPIN] 1 mg PO BEDTIME 03/23/17 [History] Docusate Sodium 100 mg PO BID 03/23/17 [History] Escitalopram Oxalate [Lexapro] 40 mg PO BID 03/23/17 [History] Ferrous Sulfate [Iron] 325 mg PO BID 03/23/17 [History] Fluticasone Propionate [Flonase Allergy Relief] 1 spray NASBOTH DAILY PRN [History] Gabapentin [Neurontin] 600 mg PO TID 03/23/17 [History] Ibuprofen 400 mg PO Q6H PRN 03/23/17 [History] LORazepam 0.5 mg PO DAILY 03/23/17 [History] LORazepam [Ativan] 0.5 mg PO DAILY PRN 03/23/17 [History] Levothyroxine 125 mcg PO DAILY 03/23/17 [History] Megadrox 2 tab PO DAILY 03/23/17 [History] Miconazole Nitrate [Fungoid Tincture] 1 applic TOP BID 03/23/17 [History] Nitroglycerin [Nitrostat] 0.4 mg SL Q5M PRN 03/23/17 [History] Oxybutynin Chloride [Ditropan Xl] 10 mg PO DAILY 03/23/17 [History] Pantoprazole Sodium [Protonix] 20 mg PO DAILY 03/23/17 [History] Phenytoin Sodium Extended 200 mg PO BID 03/23/17 [History] Polyethylene Glycol 3350 17 gm PO DAILY 03/23/17 [History] Pravastatin Sodium 5 mg PO DAILY 03/23/17 [History] Saliva Substitution Combo No.9 [Biotene] 1 dose PO QID PRN 03/23/17 [History] Sodium Fluoride [Fluoridex] 1 applic TOP BID 03/23/17 [History] Tamsulosin [Flomax] 0.4 mg PO BID 03/23/17 [History] Testadrox 2 tab PO BEDTIME 03/23/17 [History] Vit A/C/E AC/Znox/Cupric Oxide [Eye Vitamin-Minerals Tablet] 1 tab PO DAILY [History] Zonisamide [Zonegran] 200 mg PO BID 03/23/17 [History] oxyCODONE ER [OxyCONTIN] 10 mg PO BID 03/23/17 [History] tiZANidine HCl [Tizanidine HCl] 8 mg PO DAILY 03/23/17 [History] Acetaminophen/oxyCODONE [Percocet 325-5 MG] 1 tab PO Q6H 07/14/17 [History] Apixaban [Eliquis] 5 mg PO BID 07/14/17 [History] Past Medical History HEENT History: Reports: Cataract, Sinusitis Cardiovascular History: Reports: Afib, Angina, Other (See Below) Other Cardiovascular History: IVC filter, chest pain, heart disease Respiratory History: Reports: Bronchitis, Recurrent, PE Genitourinary History: Reports: BPH, Urinary Incontinence, Other (See Below) Other Genitourinary History: urinary frequency, overactive bladder CAR PORTER History: Reports: None Musculoskeletal History: Reports: Other (See Below) Other Musculoskeletal History: chronic pain syndrome Neurological History: Reports: Neuropathy, Peripheral, Seizure, Other (See Below ) Other Neuro History: convulsions Psychiatric History: Reports: Anxiety, Bipolar, Depression Endocrine/Metabolic History: Reports: Diabetes, Type II, Hypothyroidism Hematologic History: Reports: Anemia, Iron Deficiency, Other (See Below) Other Hematologic History: clotting disorder Immunologic History: Reports: None Oncologic (Cancer) History: Reports: Prostate Dermatologic History: Reports: None - Past Surgical History Head Surgeries/Procedures: Reports: None HEENT Surgical History: Reports: Cataract Surgery, Other (See Below) Other HEENT Surgeries/Procedures: retina surgery GI Surgical History: Reports: Colonoscopy, EGD Social & Family History - Family History Family Medical History: Noncontributory - Tobacco Use Smoking Status *Q: Never Smoker - Caffeine Use Caffeine Use: Reports: Coffee - Recreational Drug Use Recreational Drug Use: No - Living Situation & Occupation Living situation: Reports: Alone ED ROS GENERAL - Review of Systems Review Of Systems: See Below Constitutional: Denies: Fever, Chills, Diaphoresis HEENT: Reports: No Symptoms Respiratory: Reports: Pleuritic Chest Pain, Cough (very occasional). Denies: Shortness of Breath Cardiovascular: Reports: Chest Pain. Denies: Lightheadedness GI/Abdominal: Denies: Abdominal Pain, Nausea, Vomiting Musculoskeletal: Denies: Neck Pain, Shoulder Pain, Arm Pain, Back Pain Skin: Reports: No Symptoms Neurological: Reports: Numbness (bilat feet and legs chronically). Denies: Dizziness, Trouble Speaking ED EXAM, GENERAL - Physical Exam Exam: See Below General Appearance: Alert, No Apparent Distress Eye Exam: Bilateral Eye: PERRL Throat/Mouth: Normal Inspection Head: Atraumatic Neck: Supple, Other (no JVD) Respiratory/Chest: No Respiratory Distress, Lungs Clear, Normal Breath Sounds, No Accessory Muscle Use. No: Rales, Rhonchi, Wheezing Cardiovascular: Regular Rate, Rhythm GI/Abdominal: Soft, Non-Tender Back Exam: No: CVA Tenderness (L), CVA Tenderness (R) Extremities: Other (distal bilat stasis dermatitis bilat lower legs and feet). No: Pedal Edema, Leg Pain, Increased Warmth, Redness Skin Exam: Warm, Dry EKG INTERPRETATION EKG Date: 04/29/18 Rhythm: NSR [place]: Normal P-Wave: Present QRS: Other (borderline q waves ant. leads) ST-T: Depressed (very mild st dep V3-V6) Course - Vital Signs Last Recorded V/S: Last Vital Signs Temp 97.5 F 04/29/18 12:32 Pulse 91 04/29/18 12:32 Resp 16 04/29/18 12:32 BP 119/78 04/29/18 12:32 Pulse Ox 91 L 04/29/18 12:32 - Orders/Labs/Meds Orders: Active Orders 24 hr Category Date Time Status EKG 12 Lead [EKG Documentation Completion] [] STAT Care 04/29/18 12:42 Active Oxygen Therapy, ED [] ASDIRECTED Care 04/29/18 13:18 Active Peripheral IV Care [] . DIRECTED Care 04/29/18 12:42 Active Ang Chest [CT] Stat Exams 04/29/18 14:13 Taken CBC W/O DIFF,HEMOGRAM [HEME] MOTH@0700 Lab 05/02/18 07:00 Ordered CBC W/O DIFF,HEMOGRAM [HEME] MOTH@0700 Lab 05/06/18 07:00 Ordered CBC W/O DIFF,HEMOGRAM [HEME] MOTH@0700 Lab 05/09/18 07:00 Ordered CBC W/O DIFF,HEMOGRAM [HEME] MOTH@0700 Lab 05/13/18 07:00 Ordered CBC W/O DIFF,HEMOGRAM [HEME] MOTH@0700 Lab 05/16/18 07:00 Ordered CBC W/O DIFF,HEMOGRAM [HEME] MOTH@0700 Lab 05/20/18 07:00 Ordered Heparin Sodium/D5W [Heparin 25,000 Units in D5W 500 ML] Med 04/29/18 14:15 Active 25,000 units in 500 ml IV TITRATE Sodium Chloride 0.9% [Normal Saline] 1,000 ml Med 04/29/18 16:15 Active IV ASDIRECTED Sodium Chloride 0.9% [Normal Saline] 100 ml Med 04/29/18 14:30 Active IV ASDIRECTED Sodium Chloride 0.9% [Saline Flush] Med 04/29/18 12:41 Active 10 ml FLUSH ASDIRECTED PRN Sodium Chloride 0.9% [Saline Flush] Med 04/29/18 14:23 Active 10 ml FLUSH ONETIME PRN Peripheral IV Insertion Adult [OM.PC] Stat Oth 04/29/18 12:42 Ordered Medication Orders Heparin Sodium/Dextrose (Heparin 25,000 Units In D5w 500 Ml) 25,000 units in 500 mls @ 20 mls/hr IV TITRATE NEETA; Protocol Last Admin: 04/29/18 14:26 Dose: 1,000 units/hr, 20 mls/hr Sodium Chloride (Normal Saline) 100 mls @ 75 mls/hr IV ASDIRECTED NEETA Last Admin: 04/29/18 14:49 Dose: 75 mls/hr Sodium Chloride (Normal Saline) 1,000 mls @ 75 mls/hr IV ASDIRECTED NEETA Sodium Chloride (Saline Flush) 10 ml FLUSH ASDIRECTED PRN PRN Reason: Keep Vein Open Last Admin: 04/29/18 13:29 Dose: 10 ml Sodium Chloride (Saline Flush) 10 ml FLUSH ONETIME PRN PRN Reason: IV FLUSH Last Admin: 04/29/18 14:49 Dose: 10 ml Labs: Laboratory Tests 04/29/18 04/29/18 04/29/18 Range/Units 13:00 13:00 13:00 WBC 7.99 (4.23-9.07) K/mm3 RBC 3.98 L (4.63-6.08) M/mm3 Hgb 13.3 L (13.7-17.5) gm/L Hct 39.2 L (40.1-51.0) % MCV 98.5 H (79.0-92.2) fl MCH 33.4 H (25.7-32.2) pg MCHC 33.9 (32.2-35.5) g/dl RDW Std Deviation 45.7 H (35.1-43.9) fL Plt Count 194 (163-337) K/mm3 MPV 8.6 L (9.4-12.3) fl Neut % (Auto) 76.6 H (34.0-67.9) % Lymph % (Auto) 10.5 L (21.8-53.1) % [place] % (Auto) 11.1 (5.3-12.2) % Eos % (Auto) 1.6 (0.8-7.0) Baso % (Auto) 0.1 (0.1-1.2) % Neut # (Auto) 6.11 H (1.78-5.38) K/mm3 Lymph # (Auto) 0.84 L (1.32-3.57) K/mm3 [place] # (Auto) 0.89 H (0.30-0.82) K/mm3 Eos # (Auto) 0.13 (0.04-0.54) K/mm3 Baso # (Auto) 0.01 (0.01-0.08) K/mm3 PT 15.4 H (9.5-12.1) SECONDS INR 1.42 D-Dimer, Quantitative (0.19-0.50) mg/L Sodium 136 (136-145) mEq/L Potassium 4.2 (3.5-5.1) mEq/L Chloride 105 (98-107) mEq/L Carbon Dioxide 21 (21-32) mEq/L Anion Gap 14.2 (5-15) BUN 15 (7-18) mg/dL Creatinine 0.9 (0.7-1.3) mg/dL Est Cr Clr Drug Dosing 78.96 mL/min Estimated GFR (MDRD) > 60 (>60) mL/min BUN/Creatinine Ratio 16.7 (14-18) Glucose 146 H (83-115) mg/dL Calcium 9.1 (8.5-10.1) mg/dL Total Bilirubin 0.5 (0.2-1.0) mg/dL AST 48 H (15-37) U/L ALT 34 (16-63) U/L Alkaline Phosphatase 167 H (46-116) U/L Troponin I 5.042 H* (0.00-0.056) ng/mL Total Protein 7.2 (6.4-8.2) g/dl Albumin 3.1 L (3.4-5.0) g/dl Globulin 4.1 gm/dL Albumin/Globulin Ratio 0.8 L (1-2) 04/29/18 Range/Units 13:00 WBC (4.23-9.07) K/mm3 RBC (4.63-6.08) M/mm3 Hgb (13.7-17.5) gm/L Hct (40.1-51.0) % MCV (79.0-92.2) fl MCH (25.7-32.2) pg MCHC (32.2-35.5) g/dl RDW Std Deviation (35.1-43.9) fL Plt Count (163-337) K/mm3 MPV (9.4-12.3) fl Neut % (Auto) (34.0-67.9) % Lymph % (Auto) (21.8-53.1) % [place] % (Auto) (5.3-12.2) % Eos % (Auto) (0.8-7.0) Baso % (Auto) (0.1-1.2) % Neut # (Auto) (1.78-5.38) K/mm3 Lymph # (Auto) (1.32-3.57) K/mm3 [place] # (Auto) (0.30-0.82) K/mm3 Eos # (Auto) (0.04-0.54) K/mm3 Baso # (Auto) (0.01-0.08) K/mm3 PT (9.5-12.1) SECONDS INR D-Dimer, Quantitative 0.33 (0.19-0.50) mg/L Sodium (136-145) mEq/L Potassium (3.5-5.1) mEq/L Chloride (98-107) mEq/L Carbon Dioxide (21-32) mEq/L Anion Gap (5-15) BUN (7-18) mg/dL Creatinine (0.7-1.3) mg/dL Est Cr Clr Drug Dosing mL/min Estimated GFR (MDRD) (>60) mL/min BUN/Creatinine Ratio (14-18) Glucose (83-115) mg/dL Calcium (8.5-10.1) mg/dL Total Bilirubin (0.2-1.0) mg/dL AST (15-37) U/L ALT (16-63) U/L Alkaline Phosphatase (46-116) U/L Troponin I (0.00-0.056) ng/mL Total Protein (6.4-8.2) g/dl Albumin (3.4-5.0) g/dl Globulin gm/dL Albumin/Globulin Ratio (1-2) Meds: Medications Generic Name Dose Route Start Last Admin Trade Name Freq PRN Reason Stop Dose Admin Heparin Sodium/Dextrose 25,000 units in 500 mls @ 20 mls/hr 04/29/18 14:15 14:26 Heparin 25,000 Units In D5w 500 Ml IV 1,000 units/hr TITRATE NEETA 20 mls/hr Administration Protocol 1,000 UNITS/HR Sodium Chloride 100 mls @ 75 mls/hr 04/29/18 14:30 04/29/18 14:49 Normal Saline IV 75 mls/hr ASDIRECTED NEETA Administration Sodium Chloride 1,000 mls @ 75 mls/hr 04/29/18 16:15 Normal Saline IV ASDIRECTED NEETA Sodium Chloride 10 ml 04/29/18 12:41 04/29/18 13:29 Saline Flush FLUSH 10 ml ASDIRECTED PRN Administration Keep Vein Open Sodium Chloride 10 ml 04/29/18 14:23 04/29/18 14:49 Saline Flush FLUSH 10 ml ONETIME PRN Administration IV FLUSH Discontinued Medications Generic Name Dose Route Start Last Admin Trade Name Freq PRN Reason Stop Dose Admin Aspirin 324 mg 04/29/18 13:57 04/29/18 14:02 Aspirin PO 04/29/18 13:58 324 mg ONETIME ONE Administration Heparin Sodium (Porcine) 4,000 units 04/29/18 13:59 04/29/18 14:08 Heparin Sodium IVPUSH 04/29/18 14:00 4,000 units ONETIME ONE Administration Sodium Chloride 500 mls @ 999 mls/hr 04/29/18 15:22 04/29/18 15:31 Normal Saline IV 04/29/18 15:52 999 mls/hr .BOLUS ONE Administration Iopamidol 100 ml 04/29/18 14:23 04/29/18 14:49 Isovue-370 (76%) IVPUSH 04/29/18 14:24 80 ml ONETIME ONE Administration - Re-Assessments/Exams Free Text/Narrative Re-Assessment/Exam: 04/29/18 15:09 CXR nl. D dimer came back nl at 0.33. trop very elevated at 5.04. I did call [facility], discussed with Dr Yen, [facility]. He recomends we do a CT pul angio prior to transfer in case this is PE as sx would suggest. Pt continues to appear comfortable but states he does have the continued pain with deep breathing. 04/29/18 15:13 08/27/18 16:14. CT pul angio neg for PE, see Radiology report for details. Vitals remain stable. Have discussed with Dr Silver, Hospitalist that does accept patient in transfer, will be transfering by ground ambulance. Departure - Departure Time of Disposition: 16:33 Disposition: DC/Tfer to [facility] ([facility]3] Hospital 02 Reason for Transfer *Q: Other Condition: Serious Clinical Impression: Acute coronary syndrome Referrals: Nestor Flores MD [Primary Care Provider] - Forms: ED Department Discharge - My Orders Last 24 Hours: My Active Orders 04/29/18 12:41 Sodium Chloride 0.9% [Saline Flush] 10 ml FLUSH ASDIRECTED PRN 04/29/18 12:42 EKG 12 Lead [EKG Documentation Completion] [RC] STAT Peripheral IV Care [RC] . DIRECTED Peripheral IV Insertion Adult [OM.PC] Stat 04/29/18 13:18 Oxygen Therapy, ED [RC] ASDIRECTED 04/29/18 14:13 Ang Chest [CT] Stat 04/29/18 14:15 Heparin Sodium/D5W [Heparin 25,000 Units in D5W 500 ML] 25,000 units in 500 ml IV TITRATE 04/29/18 14:23 Sodium Chloride 0.9% [Saline Flush] 10 ml FLUSH ONETIME PRN 04/29/18 14:30 Sodium Chloride 0.9% [Normal Saline] 100 ml IV ASDIRECTED 04/29/18 16:15 Sodium Chloride 0.9% [Normal Saline] 1,000 ml IV ASDIRECTED 05/02/18 07:00 CBC W/O DIFF,HEMOGRAM [HEME] MOTH@0700 05/06/18 07:00 CBC W/O DIFF,HEMOGRAM [HEME] MOTH@0700 05/09/18 07:00 CBC W/O DIFF,HEMOGRAM [HEME] MOTH@69905/13/18 07:00 CBC W/O DIFF,HEMOGRAM [HEME] MOTH@69905/16/18 07:00 CBC W/O DIFF,HEMOGRAM [HEME] MOTH@0700 05/20/18 07:00 CBC W/O DIFF,HEMOGRAM [HEME] MOTH@0700 - Assessment/Plan Last 24 Hours: My Active Orders 04/29/18 12:41 Sodium Chloride 0.9% [Saline Flush] 10 ml FLUSH ASDIRECTED PRN 04/29/18 12:42 EKG 12 Lead [EKG Documentation Completion] [RC] STAT Peripheral IV Care [RC] . DIRECTED Peripheral IV Insertion Adult [OM.PC] Stat 04/29/18 13:18 Oxygen Therapy, ED [RC] ASDIRECTED 04/29/18 14:13 Ang Chest [CT] Stat 04/29/18 14:15 Heparin Sodium/D5W [Heparin 25,000 Units in D5W 500 ML] 25,000 units in 500 ml IV TITRATE 04/29/18 14:23 Sodium Chloride 0.9% [Saline Flush] 10 ml FLUSH ONETIME PRN 04/29/18 14:30 Sodium Chloride 0.9% [Normal Saline] 100 ml IV ASDIRECTED 04/29/18 16:15 Sodium Chloride 0.9% [Normal Saline] 1,000 ml IV ASDIRECTED 05/02/18 07:00 CBC W/O DIFF,HEMOGRAM [HEME] MOTH@69905/06/18 07:00 CBC W/O DIFF,HEMOGRAM [HEME] MOTH@69905/09/18 07:00 CBC W/O DIFF,HEMOGRAM [HEME] MOTH@69905/13/18 07:00 CBC W/O DIFF,HEMOGRAM [HEME] MOTH@69905/16/18 07:00 CBC W/O DIFF,HEMOGRAM [HEME] MOTH@69905/20/18 07:00 CBC W/O DIFF,HEMOGRAM [HEME] MOTH@07
[2018-04-29] MEDS ORDERED: Aspirin 81 MG Tab.Chew PO ONE (13:57)
[2018-04-29] MEDS ORDERED: Heparin Sodium 5,000 Units/ML Vial IVPUSH ONE (13:59)
[2018-04-29] MEDS ORDERED: Heparin Sodium/D5W 25,000 UNITS/500 ML BAG IV SCH (14:15)
[2018-04-29] MEDS ORDERED: Iopamidol 755 Mg/ML 100 ML Bottle IVPUSH ONE (14:23)
[2018-04-29] MEDS ORDERED: Sodium Chloride 0.9% 100 ML IV SCH (14:30)
[2018-04-29] MEDS ORDERED: Sodium Chloride 0.9% 500 ML IV ONE (15:22)
[2018-04-29] MEDS ORDERED: Sodium Chloride 0.9% 1,000 ML IV SCH (16:15)
--- NOTE | 2018-05-01 08:08 | CT ---
CT chest Technique: Multiple axial sections through the chest were obtained. Intravenous contrast was utilized. Study performed as a pulmonary angiogram protocol. Comparison: Prior chest x-ray performed on the same day (12:54 PM). Findings: Pulmonary arteries are well-opacified. No filling defects are seen to indicate pulmonary embolism. Mild atherosclerotic calcification seen within a nondilated thoracic aorta. Small portion of the visualized upper abdominal structures are within normal limits. Mediastinum and hilar regions show no adenopathy or mass. No axillary adenopathy is seen. Interstitial changes are seen within both lung bases most likely due to fibrosis. Slight parenchymal densities are seen within the right upper lung which may represent focal scarring but difficult to exclude pneumonia. Heart is mildly enlarged. Bone window settings were reviewed which show no acute osseous abnormality. Impression: 1. No findings of pulmonary embolism. 2. Interstitial change within both lung bases most likely due to fibrosis although difficult to exclude asymmetric pulmonary vascular congestion. Difficult to exclude pneumonia within the right upper lung. 3. Cardiomegaly and other incidental findings. Diagnostic code #3 I agree with preliminary report issued by [employer] ([facility] preliminary report dictated on 04/29/18, 4:59 PM Central Time)
== END 2018-04-29 17:00 ==
LOC: JD.ED 12:25
DX: I24.9 Acute ischemic heart disease, unspecified (principal); I48.91 Unspecified atrial fibrillation; E11.44 Type 2 diabetes mellitus with diabetic amyotrophy; E03.9 Hypothyroidism, unspecified; D50.9 Iron deficiency anemia, unspecified; F31.9 Bipolar disorder, unspecified; F41.9 Anxiety disorder, unspecified; Z79.899 Other long term (current) drug therapy
CPT/HCPCS: 36415; 71045; 71275; 80053; 84484; 85025; 85379; 85610; 93005; 96365; 96366; 96376; 99285; A9270; J1644; J7030; J7040; J7050; Q9967; 93010

== ENCOUNTER 2018-05-08 03:14 | Inpatient (IN) | payer MEDICARE, BC, MEDICAID ==
[2018-05-08] MEDS ORDERED: Sodium Chloride 0.9% 500 ML IV ONE (03:22)
--- NOTE | 2018-05-08 03:45 | EDM.PDOC ---
ED HPI GENERAL MEDICAL PROBLEM - General Chief Complaint: Cardiovascular Problem Stated Complaint: [facility] Time Seen by Provider: 05/08/18 03:21 Source of Information: Reports: Patient, EMS, EMS Notes Reviewed, Old Records History Limitations: Reports: No Limitations - History of Present Illness INITIAL COMMENTS - FREE TEXT/NARRATIVE: Patient brought in by EMS with increasing shortness of breath and feeling worn out. He just got back from [facility] yesterday after having a four- vessel bypass. He is currently living in the assisted living. He prior to this evening was getting around his apartment, denies any fevers chills or sweats no chest pain other than his sternotomy pain from his surgery site, no nausea vomiting or diarrhea. No lower extremity swelling. Appetite is still somewhat diminished and hasn't really been drinking too much fluid. No syncope or near syncope no headaches. No coughing or cold symptoms. 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: Reports: IV/IO, Other (see below) Other Treatments DIXONAC OPERATOR: Normal saline infusion Mid-Sternal Pain Score (Numeric/FACES): 2 - Related Data Allergies Allergy/AdvReac Type Severity Reaction Status Date / Time No Known Allergies Allergy Verified 05/08/18 03:28 MDT Home Meds: Home Meds Acetaminophen [Acetaminophen ER] 650 mg PO Q6H PRN 03/23/17 [History] Bacitracin [Bacitracin Oint 1 GM] 1 applic NASBOTH BID 03/23/17 [History] Calcium Carbonate/Vitamin D3 [Calcium 600 + Vit D 400 Softgl] 1 tab PO BID 03/23 [History] Chlorhexidine Gluconate [Peridex 0.12% Rinse] 15 ml PO DAILY 03/23/17 [History] ClonazePAM [KlonoPIN] 1 mg PO BEDTIME 03/23/17 [History] Docusate Sodium 100 mg PO BID 03/23/17 [History] Fluticasone Propionate [Flonase Allergy Relief] 1 spray NASBOTH DAILY PRN [History] Gabapentin [Neurontin] 600 mg PO TID 03/23/17 [History] LORazepam 0.5 mg PO BID 03/23/17 [History] Levothyroxine 125 mcg PO DAILY 03/23/17 [History] Megadrox 2 tab PO DAILY 03/23/17 [History] Miconazole Nitrate [Fungoid Tincture] 1 applic TOP BID 03/23/17 [History] Nitroglycerin [Nitrostat] 0.4 mg SL Q5M PRN 03/23/17 [History] Oxybutynin Chloride [Ditropan Xl] 10 mg PO DAILY 03/23/17 [History] Phenytoin Sodium Extended 200 mg PO BID 03/23/17 [History] Polyethylene Glycol 3350 17 gm PO DAILY 03/23/17 [History] Saliva Substitution Combo No.9 [Biotene] 1 dose PO QID PRN 03/23/17 [History] Sodium Fluoride [Fluoridex] 1 applic TOP BID 03/23/17 [History] Tamsulosin [Flomax] 0.4 mg PO BID 03/23/17 [History] Testadrox 2 tab PO BEDTIME 03/23/17 [History] Zonisamide [Zonegran] 200 mg PO BID 03/23/17 [History] oxyCODONE ER [OxyCONTIN] 10 mg PO BID 03/23/17 [History] tiZANidine HCl [Tizanidine HCl] 8 mg PO DAILY 03/23/17 [History] Acetaminophen/oxyCODONE [Percocet 325-5 MG] 1 tab PO TID 07/14/17 [History] Ascorbate Calcium [Vitamin C] 500 mg PO DAILY 05/08/18 [History] Eye Vitamin With Lutein 1 tab PO DAILY 05/08/18 [History] Lidocaine 2% [Xylocaine 2% Jelly] 1 dose TOP DAILY PRN 05/08/18 [History] Metoprolol Tartrate [Lopressor] 25 mg PO BID 05/08/18 [History] Pantoprazole Sodium [Protonix] 20 mg PO DAILY 05/08/18 [History] Sertraline [Zoloft] 100 mg PO DAILY 05/08/18 [History] Warfarin [Coumadin] 5 mg PO DAILY 05/08/18 [History] Past Medical History HEENT History: Reports: Cataract, Sinusitis Cardiovascular History: Reports: Afib, Angina, Other (See Below) Other Cardiovascular History: IVC filter, chest pain, heart disease Respiratory History: Reports: Bronchitis, Recurrent, PE Genitourinary History: Reports: BPH, Urinary Incontinence, Other (See Below) Other Genitourinary History: urinary frequency, overactive bladder GROUND HOST/HOSTESS History: Reports: None Musculoskeletal History: Reports: Other (See Below) Other Musculoskeletal History: chronic pain syndrome Neurological History: Reports: Neuropathy, Peripheral, Seizure, Other (See Below ) Other Neuro History: convulsions Psychiatric History: Reports: Anxiety, Bipolar, Depression Endocrine/Metabolic History: Reports: Diabetes, Type II, Hypothyroidism Hematologic History: Reports: Anemia, Iron Deficiency, Other (See Below) Other Hematologic History: clotting disorder Immunologic History: Reports: None Oncologic (Cancer) History: Reports: Prostate Dermatologic History: Reports: None - Past Surgical History Head Surgeries/Procedures: Reports: None HEENT Surgical History: Reports: Cataract Surgery, Other (See Below) Other HEENT Surgeries/Procedures: retina surgery GI Surgical History: Reports: Colonoscopy, EGD Social & Family History - Family History Family Medical History: Noncontributory - Caffeine Use Caffeine Use: Reports: Coffee - Living Situation & Occupation Living situation: Reports: Alone ED ROS GENERAL - Review of Systems Review Of Systems: See Below Constitutional: Denies: Fever, Chills, Night Sweats, Diaphoresis HEENT: Denies: Vision Change Respiratory: Reports: Shortness of Breath. Denies: Cough Cardiovascular: Reports: Chest Pain, Dyspnea on Exertion. Denies: Lightheadedness, Orthopnea, Palpitations, PND, Syncope GI/Abdominal: Denies: Abdominal Pain, Diarrhea, Nausea, Vomiting : Denies: Dysuria Musculoskeletal: Denies: Muscle Stiffness Skin: Reports: Change in Color Neurological: Reports: Weakness. Denies: Dizziness, Headache, Numbness, Syncope , Tingling Psychiatric: Denies: Anxiety Hematologic/Lymphatic: Reports: Other (Did require blood transfusion during his bypass surgery) ED EXAM, GENERAL - Physical Exam Exam: See Below Exam Limited By: No Limitations General Appearance: Alert, WD/WN, No Apparent Distress Throat/Mouth: Normal Oropharynx, Other (Pale mucous membranes) Head: Atraumatic Neck: Normal Inspection Respiratory/Chest: Lungs Clear, Normal Breath Sounds, No Accessory Muscle Use, Chest Non-Tender, Other (Surgical site is clean dry and intact, no signs of any redness or induration or fluctuance.). No: Rales, Rhonchi Cardiovascular: Regular Rate, Rhythm, No JVD, No Murmur Peripheral Pulses: 2+: Posterior Tibial (L), Posterior Tibial (R) GI/Abdominal: Normal Bowel Sounds, Soft, Non-Tender, No Organomegaly Extremities: Normal Inspection, No Pedal Edema Neurological: Alert, Oriented Psychiatric: Normal Affect, Normal Mood Skin Exam: Warm, Pallor EKG INTERPRETATION EKG Date: 05/08/18 Time: 03:44 EKG Interpretation Comments: EKG shows sinus rhythm rate of 77. Volar 163 ms QRS is 86 ms QT corrected is 519 he has low voltage, he is T-wave inversion noted in the anterior leads. Flat ST segments laterally. Course - Vital Signs Text/Narrative:: Patient is several days post operative from a four-vessel bypass. He seems pale dry and possibly dehydrated. KG does show some prolongation of his QT interval along with flattening of his ST segments with T wave inversions. Rule out for postop pneumonia, seems less likely pulmonary embolism disease not really having any increasing work of breathing or tachycardia or chest pain except for the incisional site. Rule out for like tried abnormality dehydration concerning for underlying anemia as the etiology. Last Recorded V/S: Last Vital Signs Temp 97.7 F 05/08/18 03:28 MDT Pulse 71 05/08/18 03:28 MDT Resp 18 05/08/18 03:28 MDT BP 76/51 L 05/08/18 03:28 MDT Pulse Ox 92 L 05/08/18 03:28 MDT - Orders/Labs/Meds Orders: Active Orders 24 hr Category Date Time Status Patient Status [ADT] Stat ADT 05/08/18 05:54 Active Cardiac Monitoring [RC] . DIRECTED Care 05/08/18 03:22 Active EKG Documentation Completion [RC] STAT Care 05/08/18 03:21 Active Chest 1V Frontal [CR] Stat Exams 05/08/18 03:22 Taken UA W/MICROSCOPIC [URIN] Stat Lab 05/08/18 03:45 Ordered Labs: Laboratory Tests 05/08/18 05/08/18 05/08/18 Range/Units 03:33 MDT 03:33 MDT 03:33 MDT WBC 6.17 (4.23-9.07) K/mm3 RBC 2.42 L (4.63-6.08) M/mm3 Hgb 8.0 L (13.7-17.5) gm/L Hct 24.5 L (40.1-51.0) % MCV 101.2 H (79.0-92.2) fl MCH 33.1 H (25.7-32.2) pg MCHC 32.7 (32.2-35.5) g/dl RDW Std Deviation 44.7 H (35.1-43.9) fL Plt Count 288 (163-337) K/mm3 MPV 8.1 L (9.4-12.3) fl Neut % (Auto) 68.6 H (34.0-67.9) % Lymph % (Auto) 17.3 L (21.8-53.1) % [place] % (Auto) 9.4 (5.3-12.2) % Eos % (Auto) 3.1 (0.8-7.0) Baso % (Auto) 0.3 (0.1-1.2) % Neut # (Auto) 4.23 (1.78-5.38) K/mm3 Lymph # (Auto) 1.07 L (1.32-3.57) K/mm3 [place] # (Auto) 0.58 (0.30-0.82) K/mm3 Eos # (Auto) 0.19 (0.04-0.54) K/mm3 Baso # (Auto) 0.02 (0.01-0.08) K/mm3 PT 15.8 H (9.5-12.1) SECONDS INR 1.46 Sodium 141 (136-145) mEq/L Potassium 3.8 (3.5-5.1) mEq/L Chloride 109 H (98-107) mEq/L Carbon Dioxide 20 L (21-32) mEq/L Anion Gap 15.8 H (5-15) BUN 11 (7-18) mg/dL Creatinine 0.8 (0.7-1.3) mg/dL Est Cr Clr Drug Dosing TNP Estimated GFR (MDRD) > 60 (>60) mL/min BUN/Creatinine Ratio 13.8 L (14-18) Glucose 150 H (83-115) mg/dL Calcium 8.1 L (8.5-10.1) mg/dL Troponin I 0.389 H* (0.00-0.056) ng/mL NT-Pro-B Natriuret Pep (0-125) pg/mL Urine Color (Yellow) Urine Appearance (Clear) Urine pH (5.0-8.0) Ur Specific [place] (1.005-1.030) Urine Protein (Negative) Urine Glucose (UA) (Negative) Urine Ketones (Negative) Urine Occult Blood (Negative) Urine Nitrite (Negative) Urine Bilirubin (Negative) Urine Urobilinogen (0.2-1.0) Ur Leukocyte Esterase (Negative) Urine RBC (0-5) /hpf Urine WBC (0-5) /hpf Ur Epithelial Cells (0-5) /hpf Urine Bacteria (FEW) /hpf Urine Mucus (FEW) /hpf Blood Type Gel Antibody Screen 05/08/18 05/08/18 05/08/18 Range/Units 03:33 MDT 03:33 MDT 03:45 MDT WBC (4.23-9.07) K/mm3 RBC (4.63-6.08) M/mm3 Hgb (13.7-17.5) gm/L Hct (40.1-51.0) % MCV (79.0-92.2) fl MCH (25.7-32.2) pg MCHC (32.2-35.5) g/dl RDW Std Deviation (35.1-43.9) fL Plt Count (163-337) K/mm3 MPV (9.4-12.3) fl Neut % (Auto) (34.0-67.9) % Lymph % (Auto) (21.8-53.1) % [place] % (Auto) (5.3-12.2) % Eos % (Auto) (0.8-7.0) Baso % (Auto) (0.1-1.2) % Neut # (Auto) (1.78-5.38) K/mm3 Lymph # (Auto) (1.32-3.57) K/mm3 [place] # (Auto) (0.30-0.82) K/mm3 Eos # (Auto) (0.04-0.54) K/mm3 Baso # (Auto) (0.01-0.08) K/mm3 PT (9.5-12.1) SECONDS INR Sodium (136-145) mEq/L Potassium (3.5-5.1) mEq/L Chloride (98-107) mEq/L Carbon Dioxide (21-32) mEq/L Anion Gap (5-15) BUN (7-18) mg/dL Creatinine (0.7-1.3) mg/dL Est Cr Clr Drug Dosing Estimated GFR (MDRD) (>60) mL/min BUN/Creatinine Ratio (14-18) Glucose (83-115) mg/dL Calcium (8.5-10.1) mg/dL Troponin I (0.00-0.056) ng/mL NT-Pro-B Natriuret Pep 1595 H (0-125) pg/mL Urine Color Yellow (Yellow) Urine Appearance Clear (Clear) Urine pH 7.0 (5.0-8.0) Ur Specific [place] 1.015 (1.005-1.030) Urine Protein Trace H (Negative) Urine Glucose (UA) Negative (Negative) Urine Ketones Negative (Negative) Urine Occult Blood Negative (Negative) Urine Nitrite Negative (Negative) Urine Bilirubin Negative (Negative) Urine Urobilinogen 0.2 (0.2-1.0) Ur Leukocyte Esterase Negative (Negative) Urine RBC Not seen (0-5) /hpf Urine WBC Not seen (0-5) /hpf Ur Epithelial Cells 0-5 (0-5) /hpf Urine Bacteria Few (FEW) /hpf Urine Mucus Not seen (FEW) /hpf Blood Type A POSITIVE Gel Antibody Screen Negative Meds: Medications Discontinued Medications Generic Name Dose Route Start Last Admin Trade Name Freq PRN Reason Stop Dose Admin Hydrocodone Bitart/Acetaminophen 1 tab 05/08/18 06:11 MDT 05/08/18 06:27 MDT [place] 325-5 Mg PO 05/08/18 06:12 MDT 1 tab ONETIME ONE Administration Sodium Chloride 500 mls @ 500 mls/hr 05/08/18 03:22 MDT 05/08/18 03:51 MDT Normal Saline IV 05/08/18 04:21 MDT 500 mls/hr .BOLUS ONE Administration - Radiology Interpretation Free Text/Narrative:: Portal chest x-ray shows cardiomegaly, has sternotomy wires noted. No signs of any major pleural effusion, no obvious infiltrate noted. No obvious large or widened mediastinum. - Re-Assessments/Exams Free Text/Narrative Re-Assessment/Exam: 05/08/18 04:17 Hemoglobin is 8 with hematocrit of 24, white blood cell count is normal, urinalysis is negative. Free Text/Narrative Re-Assessment/Exam: 05/08/18 05:06 Troponin is 0.389, review what his last troponin was from [place]. Patient does have some mild acidosis, otherwise his potassium is normal. We'll continue to hydrate patient. Blood pressure now is 87/65. Will admit patient for observation for further evaluation and monitoring. 05/08/18 05:50 Troponin is elevated 0.38 however on the records demonstrated at the time of discharge his troponin was 0.4. Suicidal normal trending for the patient is especially doesn't have any chest pain although has had bypass. His chest x-ray does not show any signs of failure is not hypoxic and he does not have any abnormal lung sounds. We'll continue to gently hydrate with IV fluids as I suspect he is volume depleted. He does have some anemia noted. He does have a history of anemia but did require blood transfusion during the cardiac bypass surgery. Otherwise is a DNR. The has responded to a fluid challenge with this latest blood pressure 89/61. He is resting quietly and comfortably now. Discussed case with Dr. Larkin for observation admission and further evaluation Departure - Departure Time of Disposition: 05:52 Disposition: DC/Tfer to [facility] Condition: Good, Fair Clinical Impression: Fluid volume depletion Anemia Qualifiers: Anemia type: unspecified type Qualified Code(s): D64.9 - Anemia, unspecified Coronary artery disease Qualifiers: Coronary Disease-Associated Artery/Lesion type: bypass graft [place] vs. transplanted heart: [place] heart Associated angina: without angina Qualified Code(s): I25.810 - Atherosclerosis of coronary artery bypass graft(s) without angina pectoris Hypotension Qualifiers: Hypotension type: orthostatic hypotension Qualified Code(s): I95.1 - Orthostatic hypotension - My Orders Last 24 Hours: My Active Orders 05/08/18 03:21 EKG Documentation Completion [RC] STAT 05/08/18 03:22 Cardiac Monitoring [RC] . DIRECTED Chest 1V Frontal [CR] Stat 05/08/18 03:45 UA W/MICROSCOPIC [URIN] Stat 05/08/18 05:54 Patient Status [ADT] Stat - Assessment/Plan Last 24 Hours: My Active Orders 05/08/18 03:21 EKG Documentation Completion [RC] STAT 05/08/18 03:22 Cardiac Monitoring [RC] . DIRECTED Chest 1V Frontal [CR] Stat 05/08/18 03:45 UA W/MICROSCOPIC [URIN] Stat 05/08/18 05:54 Patient Status [ADT] Stat
[2018-05-08] MEDS ORDERED: Acetaminophen/HYDROcodone 325-5 MG Tab PO ONE (06:11)
[2018-05-08] MEDS ORDERED: Acetaminophen 325 MG Tab PO PRN (08:36)
[2018-05-08] MEDS ORDERED: Ondansetron 4 MG/2 ML SDV IV PRN (08:36)
[2018-05-08] MEDS ORDERED: Docusate Sodium 100 MG Cap PO PRN (08:36)
[2018-05-08] MEDS ORDERED: Bisacodyl 5 MG Tab PO PRN (08:36)
[2018-05-08] MEDS ORDERED: Polyethylene Glycol 3350 Powder 17 GM Packet PO PRN (08:36)
[2018-05-08] MEDS ORDERED: Ondansetron 4 MG Tab.DIS PO PRN (08:36)
[2018-05-08] MEDS ORDERED: Sodium Chloride 0.9% 250 ML ONE (08:45)
[2018-05-08] MEDS ORDERED: Sodium Chloride 0.9% 250 ML IV SCH (08:45)
[2018-05-08] MEDS: Acetaminophen/HYDROcodone 325-5 MG Tab PO PRN ×4 (08:47→23:33)
--- NOTE | 2018-05-08 09:08 | CR ---
Chest: Portable view of the chest was obtained. Comparison: Prior chest x-ray of 04/29/18. Heart is slightly enlarged. Prior sternotomy is noted with prosthetic heart valve which is an interval change from previous exam. No acute parenchymal change is seen. Bony structures are grossly intact. Impression: 1. Interval sternotomy from prior study with prosthetic heart valve. 2. Nothing acute is appreciated on portable chest x-ray. Diagnostic code #2
[2018-05-08] MEDS ORDERED: Nitroglycerin 0.4 MG Tab.SL SL PRN (10:01)
[2018-05-08] MEDS ORDERED: Lidocaine 2% Jelly 5 ML Tube TOP PRN (10:01)
[2018-05-08] MEDS ORDERED: Lactoperoxi/Gluc Oxid/Pot Thio 42 GM Tube MUCMEM PRN (10:01)
[2018-05-08] MEDS ORDERED: Non-Formulary Medication 1 Each (Acetaminophen 650 MG) PO PRN (10:01)
[2018-05-08] MEDS ORDERED: Acetaminophen/oxyCODONE 325-5 MG Tab PO PRN (10:01)
[2018-05-08] MEDS ORDERED: Furosemide 40 MG/4 ML VIAL IVPUSH ONE ×2 (11:00→15:30)
[2018-05-08] MEDS ORDERED: Furosemide 20 MG/2 ML VIAL IVPUSH ONE (15:21)
[2018-05-08] MEDS: Gabapentin 600 MG Tab PO SCH ×2 (15:23→20:40)
[2018-05-08] MEDS ORDERED: Enoxaparin 40 MG/0.4 ML Syringe SUBCUT SCH (17:00)
[2018-05-08] MEDS ORDERED: Sertraline 50 MG Tab PO SCH (17:00)
[2018-05-08] MEDS: Tamsulosin 0.4 MG Cap.ER PO SCH (17:20)
[2018-05-08] MEDS ORDERED: Warfarin 5 MG Tab PO SCH (18:00)
--- NOTE | 2018-05-08 18:26 | PCM.HP ---
H&P History of Present Illness - General Date of Service: 05/08/18 Admit Problem/Dx: Admission Diagnosis/Problem Admission Diagnosis/Problem Volume depletion - History of Present Illness Initial Comments - Free Text/Narative: 72 year old male with history of CAD s/p CABG x4 presents post op, day 5. Review of his EMR from [place] documents post op anemia. It is unclear whether he received a transfusion. Nonetheless he presented on the night of his discharge date, 05/07/18 with significant fatigue and shortness of breath. he was discharged to his residence in an assistance living facility. There has been no apparent lightheadedness, presyncopal or syncopal episode. Review of systems is unremarkable except as mentioned above. Onset of Symptoms: Reports: Sudden Symptom Onset Date: 05/07/18 Duration of Symptoms: Reports: Hour(s):, Getting Worse Location: Reports: Generalized Severity: Moderate Improves with: Reports: None Worsens with: Reports: None Context: Reports: Exertion Associated Symptoms: Reports: Shortness of Breath, Weakness Mid-Sternal Pain Score (Numeric/FACES): 2 - Related Data Allergies/Adverse Reactions: Allergies Allergy/AdvReac Type Severity Reaction Status Date / Time No Known Allergies Allergy Verified 05/08/18 09:24 Home Medications: Home Meds Acetaminophen [Acetaminophen ER] 650 mg PO Q6H PRN 03/23/17 [History] Bacitracin [Bacitracin Oint 1 GM] 1 applic NASBOTH BID 03/23/17 [History] Calcium Carbonate/Vitamin D3 [Calcium 600 + Vit D 400 Softgl] 1 tab PO BIDMEALS 03/23/17 [History] Chlorhexidine Gluconate [Peridex 0.12% Rinse] 1 dose PO DAILY 03/23/17 [History] ClonazePAM [KlonoPIN] 1 mg PO BEDTIME 03/23/17 [History] Docusate Sodium 100 mg PO BID 03/23/17 [History] Fluticasone Propionate [Flonase Allergy Relief] 1 spray NASBOTH DAILY PRN [History] Gabapentin [Neurontin] 600 mg PO TID 03/23/17 [History] LORazepam 0.5 mg PO BID 03/23/17 [History] Levothyroxine 125 mcg PO DAILY 03/23/17 [History] Megadrox 2 tab PO DAILY 03/23/17 [History] Miconazole Nitrate [Fungoid Tincture] 1 applic TOP BID 03/23/17 [History] Nitroglycerin [Nitrostat] 0.4 mg SL Q5M PRN 03/23/17 [History] Oxybutynin Chloride [Ditropan Xl] 10 mg PO DAILY 03/23/17 [History] Phenytoin Sodium Extended 200 mg PO BID 03/23/17 [History] Polyethylene Glycol 3350 17 gm PO DAILY 03/23/17 [History] Saliva Substitution Combo No.9 [Biotene] 1 dose PO QID PRN 03/23/17 [History] Sodium Fluoride [Fluoridex] 1 applic TOP BID 03/23/17 [History] Tamsulosin [Flomax] 0.4 mg PO BID 03/23/17 [History] Testadrox 2 tab PO BEDTIME 03/23/17 [History] Zonisamide [Zonegran] 200 mg PO BID 03/23/17 [History] oxyCODONE ER [OxyCONTIN] 10 mg PO BID 03/23/17 [History] tiZANidine HCl [Tizanidine HCl] 8 mg PO DAILY 03/23/17 [History] Acetaminophen/oxyCODONE [Percocet 325-5 MG] 1 tab PO TID 07/14/17 [History] Ascorbate Calcium [Vitamin C] 500 mg PO DAILY 05/08/18 [History] Eye Vitamin With Lutein 1 tab PO DAILY 05/08/18 [History] Lidocaine 2% [Xylocaine 2% Jelly] 1 dose TOP DAILY PRN 05/08/18 [History] Metoprolol Tartrate [Lopressor] 25 mg PO BID 05/08/18 [History] Pantoprazole Sodium [Protonix] 20 mg PO DAILY 05/08/18 [History] Rosuvastatin [Crestor] 10 mg PO BEDTIME 05/08/18 [History] Sertraline [Zoloft] 100 mg PO DAILY 05/08/18 [History] Urea Cream 1 applic TOP Q48H 05/08/18 [History] Warfarin [Coumadin] 5 mg PO DAILY 05/08/18 [History] oxyCODONE HCl/Acetaminophen [Percocet 5-325 mg Tablet] 1 - 2 tab PO Q4H PRN 01/18 [History] Past Medical History HEENT History: Reports: Sinusitis Cardiovascular History: Reports: Afib, Blood Clots/VTE/DVT, Heart Murmur, High Cholesterol, Hypertension, OK, Other (See Below) Other Cardiovascular History: atherosclerotic heart disease, recent NSTEMI (04/29) Respiratory History: Reports: Bronchitis, Recurrent, PE Gastrointestinal History: Reports: GERD, Hemorrhoids Genitourinary History: Reports: BPH, Urinary Incontinence, Other (See Below) Other Genitourinary History: urinary frequency, overactive bladder FUNDRAISING DIRECTOR History: Reports: None Musculoskeletal History: Reports: Other (See Below) Other Musculoskeletal History: chronic pain, restless legs Neurological History: Reports: Neuropathy, Peripheral, Seizure, Other (See Below ) Other Neuro History: convulsions Psychiatric History: Reports: Anxiety, Bipolar, Depression Endocrine/Metabolic History: Reports: Diabetes, Type II, Hypothyroidism Hematologic History: Reports: Anemia, Iron Deficiency Other Hematologic History: clotting disorder Immunologic History: Reports: None Oncologic (Cancer) History: Reports: Prostate Dermatologic History: Reports: None - Past Surgical History Head Surgeries/Procedures: Reports: None HEENT Surgical History: Reports: Cataract Surgery, Other (See Below) Other HEENT Surgeries/Procedures: retina surgery Cardiovascular Surgical History: Reports: Coronary Artery Bypass, Other (See Below) Other Cardiovascular Surgeries/Procedures: IVC filter Respiratory Surgical History: Reports: None GI Surgical History: Reports: Colonoscopy, EGD Social & Family History - Family History Family Medical History: Noncontributory - Tobacco Use Smoking Status *Q: Never Smoker Used Tobacco, but Quit: Yes Month/Year Tobacco Last Used: 1997 - Caffeine Use Caffeine Use: Reports: Coffee - Recreational Drug Use Recreational Drug Use: No - Living Situation & Occupation Living situation: Reports: Alone H&P Review of Systems - Review of Systems: Review Of Systems: See Below General: Reports: Weakness, Fatigue HEENT: Reports: No Symptoms Pulmonary: Reports: Shortness of Breath Cardiovascular: Reports: No Symptoms Gastrointestinal: Reports: No Symptoms Genitourinary: Reports: No Symptoms Musculoskeletal: Reports: No Symptoms Skin: Reports: No Symptoms Psychiatric: Reports: No Symptoms Neurological: Reports: No Symptoms Hematologic/Lymphatic: Reports: Anemia (post op; baseline pre CABG HgB 12.6) Immunologic: Reports: No Symptoms Exam - Exam Exam: See Below - Vital Signs Vital Signs: Last Vital Signs Temp 37.2 C 05/08/18 15:19 Pulse 83 09/05/18 15:19 Resp 18 05/08/18 15:19 BP 116/61 05/08/18 15:19 Pulse Ox 100 05/08/18 15:19 Weight: 101.151 kg - Exam Quality Assessment: Supplemental Oxygen, DVT Prophylaxis General: Alert, Oriented, Cooperative, Other (pallor) HEENT: EOMI, Hearing Intact, Pupils Equal, Pupils Reactive, PERRLA Neck: Trachea Midline Lungs: Normal Respiratory Effort Cardiovascular: Regular Rate GI/Abdominal Exam: Normal Bowel Sounds, Soft, Non-Tender, No Organomegaly, No Distention (Male) Exam: Deferred Rectal (Males) Exam: Deferred Back Exam: Normal Inspection Extremities: Normal Inspection, Normal Range of Motion, Slow Capillary Refill Skin: Warm Neurological: Cranial Nerves Intact Neuro Extensive - Mental Status: Alert, Oriented x3, Normal Mood/Affect, Normal Cognition, Memory Intact Neuro Extensive - Motor, Sensory, Reflexes: CN II-XII Intact Psychiatric: Alert, Normal Affect, Normal Mood - Patient Data Lab Results Last 24 hrs: Laboratory Results - last 24 hr 05/08/18 05/08/18 05/08/18 Range/Units 03:33 03:33 03:33 WBC 6.17 (4.23-9.07) K/mm3 RBC 2.42 L (4.63-6.08) M/mm3 Hgb 8.0 L (13.7-17.5) gm/L Hct 24.5 L (40.1-51.0) % MCV 101.2 H (79.0-92.2) fl MCH 33.1 H (25.7-32.2) pg MCHC 32.7 (32.2-35.5) g/dl RDW Std Deviation 44.7 H (35.1-43.9) fL Plt Count 288 (163-337) K/mm3 MPV 8.1 L (9.4-12.3) fl Neut % (Auto) 68.6 H (34.0-67.9) % Lymph % (Auto) 17.3 L (21.8-53.1) % Barnes % (Auto) 9.4 (5.3-12.2) % Eos % (Auto) 3.1 (0.8-7.0) Baso % (Auto) 0.3 (0.1-1.2) % Neut # (Auto) 4.23 (1.78-5.38) K/mm3 Lymph # (Auto) 1.07 L (1.32-3.57) K/mm3 Barnes # (Auto) 0.58 (0.30-0.82) K/mm3 Eos # (Auto) 0.19 (0.04-0.54) K/mm3 Baso # (Auto) 0.02 (0.01-0.08) K/mm3 PT 15.8 H (9.5-12.1) SECONDS INR 1.46 Sodium 141 (136-145) mEq/L Potassium 3.8 (3.5-5.1) mEq/L Chloride 109 H (98-107) mEq/L Carbon Dioxide 20 L (21-32) mEq/L Anion Gap 15.8 H (5-15) BUN 11 (7-18) mg/dL Creatinine 0.8 (0.7-1.3) mg/dL Est Cr Clr Drug Dosing TNP Estimated GFR (MDRD) > 60 (>60) mL/min BUN/Creatinine Ratio 13.8 L (14-18) Glucose 150 H (83-115) mg/dL Calcium 8.1 L (8.5-10.1) mg/dL Troponin I 0.389 H* (0.00-0.056) ng/mL NT-Pro-B Natriuret Pep (0-125) pg/mL Urine Color (Yellow) Urine Appearance (Clear) Urine pH (5.0-8.0) Ur Specific [place] (1.005-1.030) Urine Protein (Negative) Urine Glucose (UA) (Negative) Urine Ketones (Negative) Urine Occult Blood (Negative) Urine Nitrite (Negative) Urine Bilirubin (Negative) Urine Urobilinogen (0.2-1.0) Ur Leukocyte Esterase (Negative) Urine RBC (0-5) /hpf Urine WBC (0-5) /hpf Ur Epithelial Cells (0-5) /hpf Urine Bacteria (FEW) /hpf Urine Mucus (FEW) /hpf MRSA (PCR) Blood Type Gel Antibody Screen Crossmatch 05/08/18 05/08/18 05/08/18 Range/Units 03:33 03:33 03:45 WBC (4.23-9.07) K/mm3 RBC (4.63-6.08) M/mm3 Hgb (13.7-17.5) gm/L Hct (40.1-51.0) % MCV (79.0-92.2) fl MCH (25.7-32.2) pg MCHC (32.2-35.5) g/dl RDW Std Deviation (35.1-43.9) fL Plt Count (163-337) K/mm3 MPV (9.4-12.3) fl Neut % (Auto) (34.0-67.9) % Lymph % (Auto) (21.8-53.1) % Barnes % (Auto) (5.3-12.2) % Eos % (Auto) (0.8-7.0) Baso % (Auto) (0.1-1.2) % Neut # (Auto) (1.78-5.38) K/mm3 Lymph # (Auto) (1.32-3.57) K/mm3 Barnes # (Auto) (0.30-0.82) K/mm3 Eos # (Auto) (0.04-0.54) K/mm3 Baso # (Auto) (0.01-0.08) K/mm3 PT (9.5-12.1) SECONDS INR Sodium (136-145) mEq/L Potassium (3.5-5.1) mEq/L Chloride (98-107) mEq/L Carbon Dioxide (21-32) mEq/L Anion Gap (5-15) BUN (7-18) mg/dL Creatinine (0.7-1.3) mg/dL Est Cr Clr Drug Dosing Estimated GFR (MDRD) (>60) mL/min BUN/Creatinine Ratio (14-18) Glucose (83-115) mg/dL Calcium (8.5-10.1) mg/dL Troponin I (0.00-0.056) ng/mL NT-Pro-B Natriuret Pep 1595 H (0-125) pg/mL Urine Color Yellow (Yellow) Urine Appearance Clear (Clear) Urine pH 7.0 (5.0-8.0) Ur Specific [place] 1.015 (1.005-1.030) Urine Protein Trace H (Negative) Urine Glucose (UA) Negative (Negative) Urine Ketones Negative (Negative) Urine Occult Blood Negative (Negative) Urine Nitrite Negative (Negative) Urine Bilirubin Negative (Negative) Urine Urobilinogen 0.2 (0.2-1.0) Ur Leukocyte Esterase Negative (Negative) Urine RBC Not seen (0-5) /hpf Urine WBC Not seen (0-5) /hpf Ur Epithelial Cells 0-5 (0-5) /hpf Urine Bacteria Few (FEW) /hpf Urine Mucus Not seen (FEW) /hpf MRSA (PCR) Blood Type A POSITIVE Gel Antibody Screen Negative Crossmatch See Detail 05/08/18 Range/Units 10:40 WBC (4.23-9.07) K/mm3 RBC (4.63-6.08) M/mm3 Hgb (13.7-17.5) gm/L Hct (40.1-51.0) % MCV (79.0-92.2) fl MCH (25.7-32.2) pg MCHC (32.2-35.5) g/dl RDW Std Deviation (35.1-43.9) fL Plt Count (163-337) K/mm3 MPV (9.4-12.3) fl Neut % (Auto) (34.0-67.9) % Lymph % (Auto) (21.8-53.1) % Barnes % (Auto) (5.3-12.2) % Eos % (Auto) (0.8-7.0) Baso % (Auto) (0.1-1.2) % Neut # (Auto) (1.78-5.38) K/mm3 Lymph # (Auto) (1.32-3.57) K/mm3 Barnes # (Auto) (0.30-0.82) K/mm3 Eos # (Auto) (0.04-0.54) K/mm3 Baso # (Auto) (0.01-0.08) K/mm3 PT (9.5-12.1) SECONDS INR Sodium (136-145) mEq/L Potassium (3.5-5.1) mEq/L Chloride (98-107) mEq/L Carbon Dioxide (21-32) mEq/L Anion Gap (5-15) BUN (7-18) mg/dL Creatinine (0.7-1.3) mg/dL Est Cr Clr Drug Dosing Estimated GFR (MDRD) (>60) mL/min BUN/Creatinine Ratio (14-18) Glucose (83-115) mg/dL Calcium (8.5-10.1) mg/dL Troponin I (0.00-0.056) ng/mL NT-Pro-B Natriuret Pep (0-125) pg/mL Urine Color (Yellow) Urine Appearance (Clear) Urine pH (5.0-8.0) Ur Specific [place] (1.005-1.030) Urine Protein (Negative) Urine Glucose (UA) (Negative) Urine Ketones (Negative) Urine Occult Blood (Negative) Urine Nitrite (Negative) Urine Bilirubin (Negative) Urine Urobilinogen (0.2-1.0) Ur Leukocyte Esterase (Negative) Urine RBC (0-5) /hpf Urine WBC (0-5) /hpf Ur Epithelial Cells (0-5) /hpf Urine Bacteria (FEW) /hpf Urine Mucus (FEW) /hpf MRSA (PCR) Negative Blood Type Gel Antibody Screen Crossmatch Result Diagrams: 05/09/18 06:00 05/09/18 06:00 Problem List Initiated/Reviewed/Updated: Yes Orders Last 24hrs: Active Orders 24 hr Category Date Time Status Patient Status [ADT] Stat ADT 05/08/18 05:54 Active Cardiac Monitoring [RC] . DIRECTED Care 05/08/18 03:22 Active Height and Weight [RC] 04 Care 05/08/18 08:36 Active Intake and Output [RC] 04,16 Care 05/08/18 08:36 Active Up With Assistance [RC] ASDIRECTED Care 05/08/18 08:36 Active VTE/DVT Education [RC] PER UNIT ROUTINE Care 05/08/18 08:36 Active Vital Signs [RC] Q4HR Care 05/08/18 08:36 Active Consult to Cardiac Rehabilitation [CONS] Routine Cons 05/08/18 09:37 Active Consult to Case Management [CONS] Routine Cons 05/08/18 08:36 Active Consult to Occupational Therapy [OT Evaluation and Cons 05/08/18 07:20 Active Treatment] [CONS] Routine Consult to Cleaning Laborer [CONS] Routine Cons 05/08/18 08:36 Active PT Evaluation and Treatment [CONS] Routine Cons 05/08/18 07:20 Active Heart Healthy Diet [DIET] Diet 05/08/18 Breakfast Active BASIC METABOLIC PANEL,BMP [CHEM] AM Lab 05/09/18 05:11 Ordered BASIC METABOLIC PANEL,BMP [CHEM] AM Lab 05/10/18 05:11 Ordered BASIC METABOLIC PANEL,BMP [CHEM] AM Lab 05/11/18 05:11 Ordered BASIC METABOLIC PANEL,BMP [CHEM] AM Lab 05/12/18 05:11 Ordered CBC WITH AUTO DIFF [HEME] AM Lab 05/09/18 05:11 Ordered CBC WITH AUTO DIFF [HEME] AM Lab 05/10/18 05:11 Ordered CBC WITH AUTO DIFF [HEME] AM Lab 05/11/18 05:11 Ordered CBC WITH AUTO DIFF [HEME] AM Lab 05/12/18 05:11 Ordered MAGNESIUM [CHEM] AM Lab 05/09/18 05:11 Ordered MAGNESIUM [CHEM] AM Lab 05/10/18 05:11 Ordered MAGNESIUM [CHEM] AM Lab 05/11/18 05:11 Ordered MAGNESIUM [CHEM] AM Lab 05/12/18 05:11 Ordered METH-RESIST S.AUR,MRSA BY PCR [MOLEC] Routine Lab 05/08/18 10:40 Ordered UA W/MICROSCOPIC [URIN] Stat Lab 05/08/18 03:45 Ordered Acetaminophen [Tylenol] Med 05/08/18 08:36 Active 650 mg PO Q4H PRN Acetaminophen/HYDROcodone [[place] 325-5 MG] Med 05/08/18 08:36 Active 1 tab PO Q4H PRN Acetaminophen/oxyCODONE [Percocet 325-5 MG] Med 05/08/18 10:01 Active 1 tab PO Q4H PRN Bisacodyl [Dulcolax] Med 05/08/18 08:36 Active 5 mg PO DAILY PRN Chlorhexidine Gluconate [Chlorhexidine Gluconate 0.12% Med 05/09/18 09:00 Active Rinse] 15 ml PO DAILY ClonazePAM [KlonoPIN] Med 05/08/18 21:00 Active 1 mg PO BEDTIME Docusate Sodium [Colace] Med 05/08/18 21:00 Active 100 mg PO BID Docusate Sodium [Colace] Med 05/08/18 08:36 Active 100 mg PO BID PRN Docusate Sodium/Sennosides [Senna Plus] Med 05/08/18 08:36 Active 1 tab PO BID PRN Enoxaparin [Lovenox] Med 05/08/18 17:00 Active 40 mg SUBCUT Q24H Flunisolide [Nasalide Nasal Zoe] Med 05/08/18 10:01 Active 0 ml NASBOTH BID PRN Gabapentin [Neurontin] Med 05/08/18 15:00 Active 600 mg PO TID LORazepam [Ativan] Med 05/08/18 21:00 Active 0.5 mg PO BID Lactoperoxi/Gluc Oxid/Pot Thio [Biotene Oralbalance Gel Med 05/08/18 10:01 Active ] 0 gm MUCMEM QID PRN Levothyroxine Med 05/09/18 06:00 Active 125 mcg PO ACBREAKFAST Lidocaine 2% [Xylocaine 2% Jelly] Med 05/08/18 10:01 Active 0 ml TOP DAILY PRN Metoprolol Tartrate [Lopressor] Med 05/08/18 21:00 Active 25 mg PO BID Nitroglycerin [Nitrostat] Med 05/08/18 10:01 Active 0.4 mg SL Q5M PRN Ondansetron [Zofran ODT] Med 05/08/18 08:36 Active 4 mg PO Q6H PRN Ondansetron [Zofran] Med 05/08/18 08:36 Active 4 mg IV Q6H PRN Oxybutynin [Oxybutynin ER] Med 05/09/18 09:00 Active 10 mg PO DAILY Pantoprazole [ProTONIX] Med 05/09/18 07:00 Active 40 mg PO DAILY@0700 Patient's Own Medication [Ptom] Med 05/08/18 21:00 Active 0 each PO BID Patient's Own Medication [Ptom] Med 05/08/18 21:00 Active 0 each TOP BID Patient's Own Medication [Ptom] Med 05/09/18 09:00 Active 0 each TOP Q48H Phenytoin Med 05/08/18 21:00 Active 200 mg PO BID Polyethylene Glycol 3350 [MiraLAX] Med 05/09/18 09:00 Active 17 gm PO DAILY Polyethylene Glycol 3350 [MiraLAX] Med 05/08/18 08:36 Active 17 gm PO DAILY PRN Rosuvastatin [Crestor] Med 05/08/18 21:00 Active 10 mg PO BEDTIME Sertraline [Zoloft] Med 05/08/18 17:00 Active 100 mg PO DAILY@1700 Sodium Chloride 0.9% [Normal Saline] 250 ml Med 05/08/18 08:45 Active IV ASDIRECTED Tamsulosin [Flomax] Med 05/08/18 17:00 Active 0.4 mg PO BIDMEALS Warfarin [Coumadin] Med 05/08/18 18:00 Active 5 mg PO QPM tiZANidine [Zanaflex] Med 05/09/18 21:00 Active 8 mg PO BEDTIME Transfuse Red Blood Cells [COMM] Routine Oth 05/08/18 06:56 Ordered Resuscitation Status Routine Resus Stat 05/08/18 08:36 Ordered Medication Orders Acetaminophen (Tylenol) 650 mg PO Q4H PRN PRN Reason: Pain (Mild 1-3)/fever Hydrocodone Bitart/Acetaminophen ([place] 325-5 Mg) 1 tab PO Q4H PRN PRN Reason: Pain (moderate 4-6) Last Admin: 05/08/18 17:19 Dose: 1 tab Admin: 05/08/18 13:04 Dose: 1 tab Admin: 05/08/18 08:47 Dose: 1 tab Bisacodyl (Dulcolax) 5 mg PO DAILY PRN PRN Reason: Constipation Chlorhexidine Gluconate (Chlorhexidine Gluconate 0.12% Rinse) 15 ml PO DAILY [facility] Clonazepam (Klonopin) 1 mg PO BEDTIME NEETA Docusate Sodium (Colace) 100 mg PO BID PRN PRN Reason: Constipation Docusate Sodium (Colace) 100 mg PO BID [facility] Enoxaparin Sodium (Lovenox) 40 mg SUBCUT Q24H [facility] Last Admin: 05/08/18 17:19 Dose: 40 mg Flunisolide (Nasalide Nasal Zoe) 0 ml NASBOTH BID PRN PRN Reason: dry nose Gabapentin (Neurontin) 600 mg PO TID [facility] Last Admin: 05/08/18 15:23 Dose: 600 mg Glucose Oxid/Lactoperoxid/Muramidas (Biotene Oralbalance Gel) 0 gm MUCMEM QID PRN PRN Reason: dry mouth Sodium Chloride (Normal Saline) 250 mls @ 100 mls/hr IV ASDIRECTED [facility] Last Admin: 05/08/18 08:51 Dose: 100 mls/hr Levothyroxine Sodium (Levothyroxine) 125 mcg PO ACBREAKFAST [facility] Lidocaine HCl (Xylocaine 2% Jelly) 0 ml TOP DAILY PRN PRN Reason: moderate pain Lorazepam (Ativan) 0.5 mg PO BID [facility] Metoprolol Tartrate (Lopressor) 25 mg PO BID [facility] Nitroglycerin (Nitrostat) 0.4 mg SL Q5M PRN PRN Reason: Chest Pain Ondansetron HCl (Zofran Odt) 4 mg PO Q6H PRN PRN Reason: nausea, able to take PO Ondansetron HCl (Zofran) 4 mg IV Q6H PRN PRN Reason: Nausea/Vomiting Oxybutynin Chloride (Oxybutynin Er) 10 mg PO DAILY [facility] Oxycodone/Acetaminophen (Percocet 325-5 Mg) 1 tab PO Q4H PRN PRN Reason: Pain (severe 7-10) Pantoprazole Sodium (Protonix) 40 mg PO DAILY@0700 [facility] Miconazole Nitrate [ (Fungoid Tincture]) 0 each TOP BID [facility] Urea Cream 0 each TOP Q48H [facility] Zonisamide [Zonegran (] 200 Mg) 0 each PO BID [facility] Phenytoin Sodium (Phenytoin) 200 mg PO BID [facility] Polyethylene Glycol (Miralax) 17 gm PO DAILY PRN PRN Reason: Constipation Polyethylene Glycol (Miralax) 17 gm PO DAILY [facility] Rosuvastatin Calcium (Crestor) 10 mg PO BEDTIME [facility] Senna/Docusate Sodium (Senna Plus) 1 tab PO BID PRN PRN Reason: Constipation Sertraline HCl (Zoloft) 100 mg PO DAILY@1700 [facility] Last Admin: 05/08/18 17:19 Dose: 100 mg Tamsulosin HCl (Flomax) 0.4 mg PO BIDMEALS [facility] Last Admin: 05/08/18 17:20 Dose: Not Given Tizanidine HCl (Zanaflex) 8 mg PO BEDTIME [facility] Warfarin Sodium (Coumadin) 5 mg PO QPM [facility] Last Admin: 05/08/18 17:19 Dose: 5 mg Assessment/Plan Comment:: Impression: Anemia, S/P CABG x4; symptomatic Preserved LVEF, 55-60% CAD/NonStemi; history of PCI History of PAF/AF History of DVT on coumadin, INR not therapeutic post op S/P IVC placement Chronic DM type 2 DHF HTN SZ disorder with TBI HLD Plan: T/C 2 units, Lasix after each unit Home meds Consult PT/OT/CM Disposition assisted living cf SNF, TBD DVT/GI prophylaxis
[2018-05-08] MEDS: Metoprolol Tartrate 25 MG Tab PO SCH (20:39)
[2018-05-08] MEDS: LORazepam 0.5 MG Tab PO SCH (20:40)
[2018-05-08] MEDS: Phenytoin 100 MG Cap.ER PO SCH (20:40)
[2018-05-08] MEDS: Docusate Sodium 100 MG Cap PO SCH (20:41)
[2018-05-08] MEDS: MICONAZOLE NITRATE TOP SCH (20:46)
[2018-05-08] MEDS: ZONISAMIDE 200 MG PO SCH (20:47)
[2018-05-08] MEDS ORDERED: [UNRECOGNIZED DRUG - OTHER] PO SCH (21:00)
[2018-05-08] MEDS ORDERED: ClonazePAM 1 MG Tab PO SCH (21:00)
[2018-05-08] MEDS ORDERED: Rosuvastatin 10 MG Tab PO SCH (21:00)
[2018-05-08] MEDS ORDERED: SODIUM FLUORIDE TOP SCH (21:00)
[2018-05-09] MEDS: Acetaminophen/HYDROcodone 325-5 MG Tab PO PRN ×2 (03:40→08:36)
[2018-05-09] MEDS ORDERED: Levothyroxine 125 MCG Tab PO SCH (06:00)
[2018-05-09] MEDS: Tamsulosin 0.4 MG Cap.ER PO SCH (06:24)
[2018-05-09] MEDS ORDERED: Pantoprazole 40 MG Tab.CR PO SCH (07:00)
[2018-05-09] MEDS: Phenytoin 100 MG Cap.ER PO SCH (08:34)
[2018-05-09] MEDS: LORazepam 0.5 MG Tab PO SCH (08:37)
[2018-05-09] MEDS: Gabapentin 600 MG Tab PO SCH (08:37)
[2018-05-09] MEDS: Docusate Sodium 100 MG Cap PO SCH (08:37)
[2018-05-09] MEDS: Chlorhexidine Gluconate 0.12% Oral Rinse 118 ML Bottle PO SCH ×2 (08:37→08:43)
[2018-05-09] MEDS: MICONAZOLE NITRATE TOP SCH (08:38)
[2018-05-09] MEDS: ZONISAMIDE 200 MG PO SCH (08:38)
[2018-05-09] MEDS: Metoprolol Tartrate 25 MG Tab PO SCH (08:49)
[2018-05-09 08:50] VITALS: BP 98/56
[2018-05-09] MEDS ORDERED: [UNRECOGNIZED DRUG - OTHER] PO SCH (09:00)
[2018-05-09] MEDS ORDERED: Oxybutynin 5 MG Tab.ER PO SCH (09:00)
[2018-05-09] MEDS ORDERED: Polyethylene Glycol 3350 Powder 17 GM Packet PO SCH (09:00)
--- NOTE | 2018-05-09 09:54 | PCM.DCSUM1 ---
<Chris Desai - Last Filed: 05/09/18 12:05> Discharge Summary - Hospital Course HPI Initial Comments: 72 year old male with history of CAD s/p CABG x4 presents post op. He was reportedly released from [facility] less than 24 hours prior to his normal assisted living facility. Once their he noted shortness of breath and generalized weakness. He reports controlled sternotomy pain and no fever, chills , nausea, vomiting, or diarrhea. No other symptoms to indicated an infectious source. He has been afebrile. His appetite has remained low and he has not had much fluid intake. In the ED his WBC was normal. Hgb was quite low at 8.0. Electrolytes were WNL. Anion gap is slightly elevated at 15.8. eGFR is >60. UA was negative. CXR shows no signs of infiltrate. Troponin is 0.38 however on discharge his troponin was found to be 0.4. He denies any chest pain aside from his sternotomy location. He reportedly has had a Hgb in the 8's throughout his entire hospital stay and was as low as 8.2. 12-lead EKG shows sinus rhythm at 77. ST segments are noted to be flattened laterally. QTc is prolonged at 519. T-waves are noted to be inverted on the anterior leads. He carries a history of A-fib, anemia, IVC filter, CAD, recurrent bronchitis, PE , BPH, urinary incontinence, overactive bladder, chronic pain syndrome, periphreal neuropathy, seizure, anxiety, bipolar, depression, Type II DM, Hypothyroidism, Iron deficiency anemia, clotting disorder, prostate cancer. He is subsequently admitted to the medical floor on telemetry. He is a DNR. His PCP is Dr. Flores. Diagnosis: Stroke: No - Discharge Data Discharge Date: 05/09/18 (Admit date: 05/08/18) Discharge Disposition: DC/Tfer to Other 70 Condition: Good - Discharge Diagnosis/Problem(s) (1) Postoperative anemia SNOMED Code(s): 740912840, 409492960 ICD Code: D64.9 - ANEMIA, UNSPECIFIED Status: Acute Priority: High Current Visit: Yes (2) Shortness of breath SNOMED Code(s): 099514297 ICD Code: R06.02 - SHORTNESS OF BREATH Status: Resolved Priority: High Current Visit: Yes (3) Subtherapeutic international normalized ratio (INR) SNOMED Code(s): 617992433, 814931952 ICD Code: R79.1 - ABNORMAL COAGULATION PROFILE Status: Acute Priority: High Current Visit: Yes (4) Coronary artery disease SNOMED Code(s): 67547016 ICD Code: I25.10 - ATHSCL HEART DISEASE OF [place] CORONARY ARTERY W/O ANG PCTRS Status: Chronic Priority: High Current Visit: Yes Qualifiers: Coronary Disease-Associated Artery/Lesion type: bypass graft [place] vs. transplanted heart: [place] heart Associated angina: without angina Qualified Code(s): I25.810 - Atherosclerosis of coronary artery bypass graft(s) without angina pectoris (5) Fluid volume depletion SNOMED Code(s): 26865755 ICD Code: E86.9 - VOLUME DEPLETION, UNSPECIFIED Status: Acute Priority: High Current Visit: Yes (6) Hypotension SNOMED Code(s): 33115896 ICD Code: I95.9 - HYPOTENSION, UNSPECIFIED Status: Acute Priority: High Current Visit: Yes Qualifiers: Hypotension type: orthostatic hypotension Qualified Code(s): I95.1 - Orthostatic hypotension (7) S/P CABG x 4 SNOMED Code(s): 263466272, 483082576, 631594555 ICD Code: Z95.1 - PRESENCE OF AORTOCORONARY BYPASS GRAFT Status: Acute Priority: High Current Visit: Yes - Patient Summary/Data Consults: Consultations 05/08/18 07:20 Consult to Occupational Therapy [OT Evaluation and Treatment] [CONS] Routine PT Evaluation and Treatment [CONS] Routine 05/08/18 08:36 Consult to Case Management [CONS] Routine Consult to Super[employer] [CONS] Routine 05/08/18 09:37 Consult to Cardiac Rehabilitation [CONS] Routine Labs Pending at D/C: None Recommended Follow-up Testing/Procedures: Follow-up with PCP within 7-10 days of discharge, sooner if needed. Follow-up with cardiac surgeon at scheduled appointment. Follow-up with cardiac rehab. Hospital Course: I/P: Acute: Post-operative Anemia, improved -Released from [facility] <24 hours prior -Post-op CABG x4 -Old notes report anemia in the 8's throughout stay -Called EMS due to SOB and generalized weakness -No infectious symptoms -Hgb 8-->11.9; Hct 24.5-->35.9 -Will transfuse 2 units with 40mg IVP lasix after each -Reports improved to resolved symptoms after infusin -Consult PT/OT -Ambulate with nursing Sub-theraputic INR, resolved -On admission INR was 1.46 -Hx/o A-Fib, IVC filter, on home warfarin -Lovenox bridge -Home warfarin -INR improved to 2.26 prior to discharge S/P CAGB x4 -Discharged from [facility] <24hrs prior to admission -Pain medications as needed -Follow-up with cardiac surgeon as scheduled -Follow-up with cardiac rehab -PT/OT -Telemetry Elevated troponin, improved -On admission 0.389-->0.212 -Old notes show troponin of 0.4 on discharge from [place] -Denies CP aside from sternotomy pain -Denies SOB or cardiac symptoms -12-lead EKG in ED shows sinus rhythm at 77, elongated QTc, T-wave inversion in anterior leads, Flat ST segment laterally -Telemetry -Continue to monitor Chronic: A-fib anemia IVC filter CAD recurrent bronchitis PE BPH urinary incontinence overactive bladder chronic pain syndrome periphreal neuropathy seizure anxiety bipolar depression Type II DM Hypothyroidism Iron deficiency anemia clotting disorder prostate cancer Plan: Admit to medical floor AM labs as ordered Consult CM/SW for discharge planning Other orders as indicated above DVT Prophylaxis: Lovenox and home warfarin as above Code status: DNR; PCP: Dr. Sandra Benedict Holland did very well. He received 2 units of blood and responded well to this. He denied SOB and was weaned off O2. He was up ambulating with nursing. He reports a follow-up appointment with his surgeon on 05/13/18. His HGB improved to 11.9. He denied any chest pain aside from occasional sternotomy pain. His INR was found to be slightly low and he received one day of lovenox bridging. He responded well and his INR improved to 2.26. He had no other complaints. His troponin continued to trend downward. His home medications were continued. He will be discharged today with no changes to medications. He was instructed to follow-up with his PCP within 7-10 days of discharge and his cardiac surgeon as scheduled. He was referred to cardiac rehab and they will be contacting him for this as well. - Patient Instructions Diet: Heart Healthy Diet Activity: As Tolerated Driving: Do Not Drive Notify Provider of: Fever, Increased Pain, Nausea and/or Vomiting Other/Special Instructions: -Follow-up with your primary care provider within 7- 10 days of discharge. -Follow-up with your cardiac surgeon at prior scheduled appointments. -Follow-up with [facility] re[facility] as directed. -Take all medications as prescribed. -Resume your home medications. - Discharge Plan *PRESCRIPTION DRUG MONITORING PROGRAM REVIEWED*: No *COPY OF PRESCRIPTION DRUG MONITORING REPORT IN PATIENT ESTEFANY: No Home Medications: Home Meds Acetaminophen [Acetaminophen ER] 650 mg PO Q6H PRN 03/23/17 [History] Bacitracin [Bacitracin Oint 1 GM] 1 applic NASBOTH BID 03/23/17 [History] Calcium Carbonate/Vitamin D3 [Calcium 600 + Vit D 400 Softgl] 1 tab PO BIDMEALS 03/23/17 [History] Chlorhexidine Gluconate [Peridex 0.12% Rinse] 1 dose PO DAILY 03/23/17 [History] ClonazePAM [KlonoPIN] 1 mg PO BEDTIME 03/23/17 [History] Docusate Sodium 100 mg PO BID 03/23/17 [History] Fluticasone Propionate [Flonase Allergy Relief] 1 spray NASBOTH DAILY PRN [History] Gabapentin [Neurontin] 600 mg PO TID 03/23/17 [History] LORazepam 0.5 mg PO BID 03/23/17 [History] Levothyroxine 125 mcg PO DAILY 03/23/17 [History] Megadrox 2 tab PO DAILY 03/23/17 [History] Miconazole Nitrate [Fungoid Tincture] 1 applic TOP BID 03/23/17 [History] Nitroglycerin [Nitrostat] 0.4 mg SL Q5M PRN 03/23/17 [History] Oxybutynin Chloride [Ditropan Xl] 10 mg PO DAILY 03/23/17 [History] Phenytoin Sodium Extended 200 mg PO BID 03/23/17 [History] Polyethylene Glycol 3350 17 gm PO DAILY 03/23/17 [History] Saliva Substitution Combo No.9 [Biotene] 1 dose PO QID PRN 03/23/17 [History] Sodium Fluoride [Fluoridex] 1 applic TOP BID 03/23/17 [History] Tamsulosin [Flomax] 0.4 mg PO BID 03/23/17 [History] Testadrox 2 tab PO BEDTIME 03/23/17 [History] Zonisamide [Zonegran] 200 mg PO BID 03/23/17 [History] oxyCODONE ER [OxyCONTIN] 10 mg PO BID 03/23/17 [History] tiZANidine HCl [Tizanidine HCl] 8 mg PO DAILY 03/23/17 [History] Acetaminophen/oxyCODONE [Percocet 325-5 MG] 1 tab PO TID 07/14/17 [History] Ascorbate Calcium [Vitamin C] 500 mg PO DAILY 05/08/18 [History] Eye Vitamin With Lutein 1 tab PO DAILY 05/08/18 [History] Lidocaine 2% [Xylocaine 2% Jelly] 1 dose TOP DAILY PRN 05/08/18 [History] Metoprolol Tartrate [Lopressor] 25 mg PO BID 05/08/18 [History] Pantoprazole Sodium [Protonix] 20 mg PO DAILY 05/08/18 [History] Rosuvastatin [Crestor] 10 mg PO BEDTIME 05/08/18 [History] Sertraline [Zoloft] 100 mg PO DAILY 05/08/18 [History] Urea Cream 1 applic TOP Q48H 05/08/18 [History] Warfarin [Coumadin] 5 mg PO DAILY 05/08/18 [History] oxyCODONE HCl/Acetaminophen [Percocet 5-325 mg Tablet] 1 - 2 tab PO Q4H PRN 01/18 [History] Patient Handouts: Heart-Healthy Eating Plan, [id number] Forms: ED Department Discharge Referrals: Nestor Flores MD [Primary Care Provider] - - Discharge Summary/Plan Comment DC Time >30 min.: Yes (45 mins) - General Info Date of Service: 05/09/18 Admission Dx/Problem (Free Text: Admission Diagnosis/Problem Admission Diagnosis/Problem Volume depletion Subjective Update: In to see Holland. He is lying in bed and doing well .He just made 3 laps with nursing and states it went very well. He has no complaints or concerns. No nursing concerns. He will be discharged today back to [facility]. Functional Status: Reports: Pain Controlled, Tolerating Diet, Ambulating, Urinating. Denies: New Symptoms - Review of Systems General: Reports: No Symptoms. Denies: Fever, Weakness, Fatigue, Malaise HEENT: Reports: No Symptoms. Denies: Sore Throat Pulmonary: Reports: No Symptoms. Denies: Shortness of Breath, Cough, Sputum, Wheezing Cardiovascular: Reports: Chest Pain (s/p sternotomy). Denies: Palpitations, Dyspnea on Exertion, Lightheadedness Gastrointestinal: Reports: Decreased Appetite (improving slowly since surgery). Denies: Abdominal Pain, Constipation, Diarrhea, Nausea, Vomiting Genitourinary: Reports: No Symptoms Musculoskeletal: Reports: No Symptoms Skin: Reports: No Symptoms Neurological: Reports: No Symptoms. Denies: Confusion, Numbness, Tingling, Difficulty Walking, Weakness, Gait Disturbance Psychiatric: Reports: No Symptoms - Patient Data Vitals - Most Recent: Last Vital Signs Temp 97.2 F 05/09/18 08:33 Pulse 92 05/09/18 08:49 Resp 18 05/09/18 08:33 BP 98/56 L 05/09/18 08:49 Pulse Ox 92 L 05/09/18 08:35 Weight - Most Recent: 101.151 kg I&O - Last 24 hours: Intake & Output 05/08/18 05/09/18 05/09/18 22:59 06:59 14:59 Intake Total 870 1000 Output Total 700 1375 Balance 170 -375 Lab Results - Last 24 hrs: Laboratory Results - last 24 hr 05/08/18 05/08/18 05/09/18 Range/Units 03:33 10:40 06:00 WBC 7.22 (4.23-9.07) K/mm3 RBC 3.68 L (4.63-6.08) M/mm3 Hgb 11.9 L (13.7-17.5) gm/L Hct 35.9 L (40.1-51.0) % MCV 97.6 H (79.0-92.2) fl MCH 32.3 H (25.7-32.2) pg MCHC 33.1 (32.2-35.5) g/dl RDW Std Deviation 52.1 H (35.1-43.9) fL Plt Count 332 (163-337) K/mm3 MPV 8.7 L (9.4-12.3) fl Neut % (Auto) 66.8 (34.0-67.9) % Lymph % (Auto) 17.9 L (21.8-53.1) % [place] % (Auto) 10.7 (5.3-12.2) % Eos % (Auto) 2.9 (0.8-7.0) Baso % (Auto) 0.3 (0.1-1.2) % Neut # (Auto) 4.83 (1.78-5.38) K/mm3 Lymph # (Auto) 1.29 L (1.32-3.57) K/mm3 [place] # (Auto) 0.77 (0.30-0.82) K/mm3 Eos # (Auto) 0.21 (0.04-0.54) K/mm3 Baso # (Auto) 0.02 (0.01-0.08) K/mm3 PT (9.5-12.1) SECONDS INR Sodium (136-145) mEq/L Potassium (3.5-5.1) mEq/L Chloride (98-107) mEq/L Carbon Dioxide (21-32) mEq/L Anion Gap (5-15) BUN (7-18) mg/dL Creatinine (0.7-1.3) mg/dL Est Cr Clr Drug Dosing mL/min Estimated GFR (MDRD) (>60) mL/min BUN/Creatinine Ratio (14-18) Glucose (83-115) mg/dL Calcium (8.5-10.1) mg/dL Magnesium (1.8-2.4) mg/dl MRSA (PCR) Negative Blood Type A POSITIVE Gel Antibody Screen Negative Crossmatch See Detail 05/09/18 05/09/18 Range/Units 06:00 06:00 WBC (4.23-9.07) K/mm3 RBC (4.63-6.08) M/mm3 Hgb (13.7-17.5) gm/L Hct (40.1-51.0) % MCV (79.0-92.2) fl MCH (25.7-32.2) pg MCHC (32.2-35.5) g/dl RDW Std Deviation (35.1-43.9) fL Plt Count (163-337) K/mm3 MPV (9.4-12.3) fl Neut % (Auto) (34.0-67.9) % Lymph % (Auto) (21.8-53.1) % [place] % (Auto) (5.3-12.2) % Eos % (Auto) (0.8-7.0) Baso % (Auto) (0.1-1.2) % Neut # (Auto) (1.78-5.38) K/mm3 Lymph # (Auto) (1.32-3.57) K/mm3 [place] # (Auto) (0.30-0.82) K/mm3 Eos # (Auto) (0.04-0.54) K/mm3 Baso # (Auto) (0.01-0.08) K/mm3 PT 24.2 H (9.5-12.1) SECONDS INR 2.26 Sodium 141 (136-145) mEq/L Potassium 3.6 (3.5-5.1) mEq/L Chloride 106 (98-107) mEq/L Carbon Dioxide 20 L (21-32) mEq/L Anion Gap 18.6 H (5-15) BUN 11 (7-18) mg/dL Creatinine 0.9 (0.7-1.3) mg/dL Est Cr Clr Drug Dosing 77.73 mL/min Estimated GFR (MDRD) > 60 (>60) mL/min BUN/Creatinine Ratio 12.2 L (14-18) Glucose 126 H (83-115) mg/dL Calcium 8.7 (8.5-10.1) mg/dL Magnesium 2.1 (1.8-2.4) mg/dl MRSA (PCR) Blood Type Gel Antibody Screen Crossmatch Med Orders - Current: Current Medications Acetaminophen (Tylenol) 650 mg PO Q4H PRN PRN Reason: Pain (Mild 1-3)/fever Hydrocodone Bitart/Acetaminophen (Acushnet 325-5 Mg) 1 tab PO Q4H PRN PRN Reason: Pain (moderate 4-6) Last Admin: 05/09/18 08:36 Dose: 1 tab Bisacodyl (Dulcolax) 5 mg PO DAILY PRN PRN Reason: Constipation Chlorhexidine Gluconate (Chlorhexidine Gluconate 0.12% Rinse) 15 ml PO DAILY [facility] Last Admin: 05/09/18 08:43 Dose: Not Given Clonazepam (Klonopin) 1 mg PO BEDTIME [facility] Last Admin: 05/08/18 20:41 Dose: 1 mg Docusate Sodium (Colace) 100 mg PO BID PRN PRN Reason: Constipation Docusate Sodium (Colace) 100 mg PO BID [facility] Last Admin: 05/09/18 08:37 Dose: 100 mg Flunisolide (Nasalide Nasal [place]) 0 ml NASBOTH BID PRN PRN Reason: dry nose Gabapentin (Neurontin) 600 mg PO TID [facility] Last Admin: 05/09/18 08:37 Dose: 600 mg Glucose Oxid/Lactoperoxid/Muramidas (Biotene Oralbalance Gel) 0 gm MUCMEM QID PRN PRN Reason: dry mouth Sodium Chloride (Normal Saline) 250 mls @ 100 mls/hr IV ASDIRECTED [facility] Last Admin: 05/08/18 08:51 Dose: 100 mls/hr Levothyroxine Sodium (Levothyroxine) 125 mcg PO ACBREAKFAST [facility] Last Admin: 05/09/18 06:24 Dose: 125 mcg Lidocaine HCl (Xylocaine 2% Jelly) 0 ml TOP DAILY PRN PRN Reason: moderate pain Lorazepam (Ativan) 0.5 mg PO BID [facility] Last Admin: 05/09/18 08:37 Dose: 0.5 mg Metoprolol Tartrate (Lopressor) 25 mg PO BID [facility] Last Admin: 05/09/18 08:49 Dose: 25 mg Nitroglycerin (Nitrostat) 0.4 mg SL Q5M PRN PRN Reason: Chest Pain Ondansetron HCl (Zofran Odt) 4 mg PO Q6H PRN PRN Reason: nausea, able to take PO Ondansetron HCl (Zofran) 4 mg IV Q6H PRN PRN Reason: Nausea/Vomiting Oxybutynin Chloride (Oxybutynin Er) 10 mg PO DAILY [facility] Last Admin: 05/09/18 08:37 Dose: 10 mg Oxycodone/Acetaminophen (Percocet 325-5 Mg) 1 tab PO Q4H PRN PRN Reason: Pain (severe 7-10) Pantoprazole Sodium (Protonix) 40 mg PO DAILY@0700 [facility] Last Admin: 05/09/18 06:24 Dose: 40 mg Miconazole Nitrate [ (Fungoid Tincture]) 0 each TOP BID [facility] Last Admin: 05/09/18 08:38 Dose: Not Given Urea Cream 0 each TOP Q48H [facility] Last Admin: 05/09/18 08:38 Dose: Not Given Zonisamide [Zonegran (] 200 Mg) 0 each PO BID [facility] Last Admin: 05/09/18 08:38 Dose: Not Given Phenytoin Sodium (Phenytoin) 200 mg PO BID [facility] Last Admin: 05/09/18 08:34 Dose: 200 mg Polyethylene Glycol (Miralax) 17 gm PO DAILY PRN PRN Reason: Constipation Polyethylene Glycol (Miralax) 17 gm PO DAILY [facility] Last Admin: 05/09/18 08:38 Dose: 17 gm Rosuvastatin Calcium (Crestor) 10 mg PO BEDTIME [facility] Last Admin: 05/08/18 20:41 Dose: 10 mg Senna/Docusate Sodium (Senna Plus) 1 tab PO BID PRN PRN Reason: Constipation Sertraline HCl (Zoloft) 100 mg PO DAILY@1700 [facility] Last Admin: 05/08/18 17:19 Dose: 100 mg Tamsulosin HCl (Flomax) 0.4 mg PO BIDMEALS [facility] Last Admin: 05/09/18 06:24 Dose: 0.4 mg Tizanidine HCl (Zanaflex) 8 mg PO BEDTIME [facility] Warfarin Sodium (Coumadin) 5 mg PO QPM [facility] Last Admin: 05/08/18 17:19 Dose: 5 mg Discontinued Medications Hydrocodone Bitart/Acetaminophen (Acushnet 325-5 Mg) 1 tab PO ONETIME ONE Stop: 05/08/18 06:12 Last Admin: 05/08/18 06:27 Dose: 1 tab Enoxaparin Sodium (Lovenox) 40 mg SUBCUT Q24H [facility] Last Admin: 05/08/18 17:19 Dose: 40 mg Furosemide (Lasix) 40 mg IVPUSH NOW ONE Stop: 05/08/18 11:01 Last Admin: 05/08/18 12:12 Dose: 40 mg Furosemide (Lasix) 40 mg IVPUSH NOW ONE Stop: 05/08/18 15:31 Furosemide (Lasix) 20 mg IVPUSH NOW ONE Stop: 05/08/18 15:22 Last Admin: 05/08/18 15:39 Dose: 20 mg Sodium Chloride (Normal Saline) 500 mls @ 500 mls/hr IV .BOLUS ONE Stop: 05/08/18 04:21 Last Admin: 05/08/18 03:51 Dose: 500 mls/hr Sodium Chloride (Normal Saline) Confirm Administered Dose 250 mls @ as directed .ROUTE .STK-MED ONE Stop: 05/08/18 08:46 Last Admin: 05/08/18 08:51 Dose: Not Given Non-Formulary Medication (Acetaminophen) 650 mg PO Q6H PRN PRN Reason: Pain Non-Formulary Medication (Megadrox) 2 tab PO DAILY [facility] Non-Formulary Medication (Sodium Fluoride [Fluoridex]) 1 applic TOP BID [facility] Non-Formulary Medication (Testadrox) 2 tab PO BEDTIME [facility] - Exam Quality Assessment: Reports: DVT Prophylaxis General: Reports: Alert, Oriented, Cooperative, No Acute Distress HEENT: Reports: Pupils Equal, Pupils Reactive, EOMI, Mucous Membr. Moist/[place] Neck: Reports: Supple, Trachea Midline, No JVD Lungs: Reports: Clear to Auscultation, Normal Respiratory Effort Cardiovascular: Reports: Regular Rate, Regular Rhythm GI/Abdominal Exam: Normal Bowel Sounds, Soft, Non-Tender, No Distention, No Abnormal Bruit (Male) Exam: Deferred Rectal (Males) Exam: Deferred Extremities: Normal Inspection, Normal Range of Motion, Non-Tender, No Pedal Edema, Normal Capillary Refill Skin: Reports: Warm, Dry, Intact Neurological: Reports: No New Focal Deficit Psy/Mental Status: Reports: Alert, Normal Affect, Normal Mood <Hailey Larkin - Last Filed: 05/09/18 13:48> Discharge Summary - Patient Summary/Data Consults: Consultations 05/08/18 07:20 Consult to Occupational Therapy [OT Evaluation and Treatment] [CONS] Routine PT Evaluation and Treatment [CONS] Routine 05/08/18 08:36 Consult to Case Management [CONS] Routine Consult to Super[employer] [CONS] Routine 05/08/18 09:37 Consult to Cardiac Rehabilitation [CONS] Routine - Discharge Summary/Plan Comment Discharge Summary/Plan Comment: POST OP CARE WITH IMPROVEMENT OF SYMPTOMS AFTER 2 UNITS OF PRBCS. SEE H/P AND ABOVE FOR DETAILS. FOLLOW UP APPTS SCHEDULED. RETURN TO [facility]. - Patient Data Vitals - Most Recent: Last Vital Signs Temp 36.2 C 05/09/18 08:33 Pulse 92 05/09/18 08:49 Resp 18 05/09/18 08:33 BP 98/56 L 05/09/18 08:49 Pulse Ox 92 L 05/09/18 08:35 I&O - Last 24 hours: Intake & Output 05/08/18 05/09/18 05/09/18 22:59 06:59 14:59 Intake Total 870 1000 310 Output Total 700 1375 Balance 170 -375 310 Lab Results - Last 24 hrs: Laboratory Results - last 24 hr 05/08/18 05/09/18 05/09/18 Range/Units 03:33 06:00 06:00 WBC 7.22 (4.23-9.07) K/mm3 RBC 3.68 L (4.63-6.08) M/mm3 Hgb 11.9 L (13.7-17.5) gm/L Hct 35.9 L (40.1-51.0) % MCV 97.6 H (79.0-92.2) fl MCH 32.3 H (25.7-32.2) pg MCHC 33.1 (32.2-35.5) g/dl RDW Std Deviation 52.1 H (35.1-43.9) fL Plt Count 332 (163-337) K/mm3 MPV 8.7 L (9.4-12.3) fl Neut % (Auto) 66.8 (34.0-67.9) % Lymph % (Auto) 17.9 L (21.8-53.1) % [place] % (Auto) 10.7 (5.3-12.2) % Eos % (Auto) 2.9 (0.8-7.0) Baso % (Auto) 0.3 (0.1-1.2) % Neut # (Auto) 4.83 (1.78-5.38) K/mm3 Lymph # (Auto) 1.29 L (1.32-3.57) K/mm3 [place] # (Auto) 0.77 (0.30-0.82) K/mm3 Eos # (Auto) 0.21 (0.04-0.54) K/mm3 Baso # (Auto) 0.02 (0.01-0.08) K/mm3 PT (9.5-12.1) SECONDS INR Sodium 141 (136-145) mEq/L Potassium 3.6 (3.5-5.1) mEq/L Chloride 106 (98-107) mEq/L Carbon Dioxide 20 L (21-32) mEq/L Anion Gap 18.6 H (5-15) BUN 11 (7-18) mg/dL Creatinine 0.9 (0.7-1.3) mg/dL Est Cr Clr Drug Dosing 77.73 mL/min Estimated GFR (MDRD) > 60 (>60) mL/min BUN/Creatinine Ratio 12.2 L (14-18) Glucose 126 H (83-115) mg/dL Calcium 8.7 (8.5-10.1) mg/dL Magnesium 2.1 (1.8-2.4) mg/dl Troponin I (0.00-0.056) ng/mL NT-Pro-B Natriuret Pep (0-125) pg/mL Crossmatch See Detail 05/09/18 05/09/18 05/09/18 Range/Units 06:00 10:34 10:34 WBC (4.23-9.07) K/mm3 RBC (4.63-6.08) M/mm3 Hgb (13.7-17.5) gm/L Hct (40.1-51.0) % MCV (79.0-92.2) fl MCH (25.7-32.2) pg MCHC (32.2-35.5) g/dl RDW Std Deviation (35.1-43.9) fL Plt Count (163-337) K/mm3 MPV (9.4-12.3) fl Neut % (Auto) (34.0-67.9) % Lymph % (Auto) (21.8-53.1) % [place] % (Auto) (5.3-12.2) % Eos % (Auto) (0.8-7.0) Baso % (Auto) (0.1-1.2) % Neut # (Auto) (1.78-5.38) K/mm3 Lymph # (Auto) (1.32-3.57) K/mm3 [place] # (Auto) (0.30-0.82) K/mm3 Eos # (Auto) (0.04-0.54) K/mm3 Baso # (Auto) (0.01-0.08) K/mm3 PT 24.2 H (9.5-12.1) SECONDS INR 2.26 Sodium (136-145) mEq/L Potassium (3.5-5.1) mEq/L Chloride (98-107) mEq/L Carbon Dioxide (21-32) mEq/L Anion Gap (5-15) BUN (7-18) mg/dL Creatinine (0.7-1.3) mg/dL Est Cr Clr Drug Dosing mL/min Estimated GFR (MDRD) (>60) mL/min BUN/Creatinine Ratio (14-18) Glucose (83-115) mg/dL Calcium (8.5-10.1) mg/dL Magnesium (1.8-2.4) mg/dl Troponin I 0.212 H* (0.00-0.056) ng/mL NT-Pro-B Natriuret Pep 1382 H (0-125) pg/mL Crossmatch Med Orders - Current: Current Medications Acetaminophen (Tylenol) 650 mg PO Q4H PRN PRN Reason: Pain (Mild 1-3)/fever Hydrocodone Bitart/Acetaminophen (Acushnet 325-5 Mg) 1 tab PO Q4H PRN PRN Reason: Pain (moderate 4-6) Last Admin: 05/09/18 08:36 Dose: 1 tab Bisacodyl (Dulcolax) 5 mg PO DAILY PRN PRN Reason: Constipation Chlorhexidine Gluconate (Chlorhexidine Gluconate 0.12% Rinse) 15 ml PO DAILY [facility] Last Admin: 05/09/18 08:43 Dose: Not Given Clonazepam (Klonopin) 1 mg PO BEDTIME [facility] Last Admin: 05/08/18 20:41 Dose: 1 mg Docusate Sodium (Colace) 100 mg PO BID PRN PRN Reason: Constipation Docusate Sodium (Colace) 100 mg PO BID [facility] Last Admin: 05/09/18 08:37 Dose: 100 mg Flunisolide (Nasalide Nasal [place]) 0 ml NASBOTH BID PRN PRN Reason: dry nose Gabapentin (Neurontin) 600 mg PO TID [facility] Last Admin: 05/09/18 08:37 Dose: 600 mg Glucose Oxid/Lactoperoxid/Muramidas (Biotene Oralbalance Gel) 0 gm MUCMEM QID PRN PRN Reason: dry mouth Sodium Chloride (Normal Saline) 250 mls @ 100 mls/hr IV ASDIRECTED [facility] Last Admin: 05/08/18 08:51 Dose: 100 mls/hr Levothyroxine Sodium (Levothyroxine) 125 mcg PO ACBREAKFAST [facility] Last Admin: 05/09/18 06:24 Dose: 125 mcg Lidocaine HCl (Xylocaine 2% Jelly) 0 ml TOP DAILY PRN PRN Reason: moderate pain Lorazepam (Ativan) 0.5 mg PO BID [facility] Last Admin: 05/09/18 08:37 Dose: 0.5 mg Metoprolol Tartrate (Lopressor) 25 mg PO BID [facility] Last Admin: 05/09/18 08:49 Dose: 25 mg Nitroglycerin (Nitrostat) 0.4 mg SL Q5M PRN PRN Reason: Chest Pain Ondansetron HCl (Zofran Odt) 4 mg PO Q6H PRN PRN Reason: nausea, able to take PO Ondansetron HCl (Zofran) 4 mg IV Q6H PRN PRN Reason: Nausea/Vomiting Oxybutynin Chloride (Oxybutynin Er) 10 mg PO DAILY [facility] Last Admin: 05/09/18 08:37 Dose: 10 mg Oxycodone/Acetaminophen (Percocet 325-5 Mg) 1 tab PO Q4H PRN PRN Reason: Pain (severe 7-10) Pantoprazole Sodium (Protonix) 40 mg PO DAILY@0700 [facility] Last Admin: 05/09/18 06:24 Dose: 40 mg Miconazole Nitrate [ (Fungoid Tincture]) 0 each TOP BID [facility] Last Admin: 05/09/18 08:38 Dose: Not Given Urea Cream 0 each TOP Q48H [facility] Last Admin: 05/09/18 08:38 Dose: Not Given Zonisamide [Zonegran (] 200 Mg) 0 each PO BID [facility] Last Admin: 05/09/18 08:38 Dose: Not Given Phenytoin Sodium (Phenytoin) 200 mg PO BID [facility] Last Admin: 05/09/18 08:34 Dose: 200 mg Polyethylene Glycol (Miralax) 17 gm PO DAILY PRN PRN Reason: Constipation Polyethylene Glycol (Miralax) 17 gm PO DAILY [facility] Last Admin: 05/09/18 08:38 Dose: 17 gm Rosuvastatin Calcium (Crestor) 10 mg PO BEDTIME [facility] Last Admin: 05/08/18 20:41 Dose: 10 mg Senna/Docusate Sodium (Senna Plus) 1 tab PO BID PRN PRN Reason: Constipation Sertraline HCl (Zoloft) 100 mg PO DAILY@1700 [facility] Last Admin: 05/08/18 17:19 Dose: 100 mg Tamsulosin HCl (Flomax) 0.4 mg PO BIDMEALS [facility] Last Admin: 05/09/18 06:24 Dose: 0.4 mg Tizanidine HCl (Zanaflex) 8 mg PO BEDTIME [facility] Warfarin Sodium (Coumadin) 5 mg PO QPM [facility] Last Admin: 05/08/18 17:19 Dose: 5 mg Discontinued Medications Hydrocodone Bitart/Acetaminophen (Acushnet 325-5 Mg) 1 tab PO ONETIME ONE Stop: 05/08/18 06:12 Last Admin: 05/08/18 06:27 Dose: 1 tab Enoxaparin Sodium (Lovenox) 40 mg SUBCUT Q24H [facility] Last Admin: 05/08/18 17:19 Dose: 40 mg Furosemide (Lasix) 40 mg IVPUSH NOW ONE Stop: 05/08/18 11:01 Last Admin: 05/08/18 12:12 Dose: 40 mg Furosemide (Lasix) 40 mg IVPUSH NOW ONE Stop: 05/08/18 15:31 Furosemide (Lasix) 20 mg IVPUSH NOW ONE Stop: 05/08/18 15:22 Last Admin: 05/08/18 15:39 Dose: 20 mg Sodium Chloride (Normal Saline) 500 mls @ 500 mls/hr IV .BOLUS ONE Stop: 05/08/18 04:21 Last Admin: 05/08/18 03:51 Dose: 500 mls/hr Sodium Chloride (Normal Saline) Confirm Administered Dose 250 mls @ as directed .ROUTE .STK-MED ONE Stop: 05/08/18 08:46 Last Admin: 05/08/18 08:51 Dose: Not Given Non-Formulary Medication (Acetaminophen) 650 mg PO Q6H PRN PRN Reason: Pain Non-Formulary Medication (Megadrox) 2 tab PO DAILY [facility] Non-Formulary Medication (Sodium Fluoride [Fluoridex]) 1 applic TOP BID [facility] Non-Formulary Medication (Testadrox) 2 tab PO BEDTIME [facility]
[2018-05-09] MEDS ORDERED: tiZANidine 4 MG Tab PO SCH (21:00)
== END 2018-05-09 11:51 | disposition other institution (70) | DRG 812 ==
LOC: JD.ED 03:14 → JD.MS 06:29
PROVIDERS: ADMIT Internal Medicine Cardiovascular Disease; ATTEND Internal Medicine Cardiovascular Disease
PROC: 30233N1 Transfusion of Nonautologous Red Blood Cells into Peripheral Vein, Percutaneous Approach (ICD-10-PCS; principal; 2018-05-08)
DX: D50.9 Iron deficiency anemia, unspecified (principal); I50.32 Chronic diastolic (congestive) heart failure; D64.9 Anemia, unspecified; E87.2 Acidosis; E86.9 Volume depletion, unspecified; I48.91 Unspecified atrial fibrillation; I95.1 Orthostatic hypotension; G89.18 Other acute postprocedural pain; I25.10 Atherosclerotic heart disease of native coronary artery without angina pectoris; N40.1 Benign prostatic hyperplasia with lower urinary tract symptoms; N39.498 Other specified urinary incontinence; R35.0 Frequency of micturition; N32.81 Overactive bladder; R56.9 Unspecified convulsions; G89.4 Chronic pain syndrome; E11.42 Type 2 diabetes mellitus with diabetic polyneuropathy; F41.9 Anxiety disorder, unspecified; F31.9 Bipolar disorder, unspecified; K21.9 Gastro-esophageal reflux disease without esophagitis; G25.81 Restless legs syndrome; I48.0 Paroxysmal atrial fibrillation; R06.02 Shortness of breath; I11.0 Hypertensive heart disease with heart failure; G40.909 Epilepsy, unspecified, not intractable, without status epilepticus; E78.5 Hyperlipidemia, unspecified; E03.9 Hypothyroidism, unspecified; R79.1 Abnormal coagulation profile; R74.8 Abnormal levels of other serum enzymes; I25.2 Old myocardial infarction; Z86.718 Personal history of other venous thrombosis and embolism; Z87.820 Personal history of traumatic brain injury; Z85.46 Personal history of malignant neoplasm of prostate; Z95.1 Presence of aortocoronary bypass graft; Z79.01 Long term (current) use of anticoagulants; Z66 Do not resuscitate; Z79.899 Other long term (current) drug therapy; Z95.5 Presence of coronary angioplasty implant and graft; Z86.711 Personal history of pulmonary embolism; Z95.828 Presence of other vascular implants and grafts
CPT/HCPCS: 36415; 71045; 80048; 81001; 83880; 84484; 85025; 85610; 86850; 86900; 86901; 86922; 93005; 96360; 96361; 99285; A9270; J7040; 36430; 83735; 87641; 93010; 97161-GP; 97165-GO; 97530-GO; J1650; J1940; J7050; P9016

== ENCOUNTER 2018-05-28 10:16 | Emergency (ER) | payer MEDICARE, BC, MEDICAID ==
[2018-05-28 10:30] VITALS: BP 119/80
--- NOTE | 2018-05-28 12:20 | US ---
Right lower extremity deep venous ultrasound: Duplex and color flow imaging was obtained of the right common femoral, proximal greater saphenous, superficial femoral, popliteal, posterior tibial and peroneal veins. Left common femoral vein was also evaluated. Comparison: No prior right lower extremity deep venous ultrasound. Greater saphenous thrombus is seen which appears nonoccluding. Clot does not extend into the bifurcation into the common femoral vein. Other veins show normal phasic flow, augmentation and compression. Impression: 1. Nonoccluding clot within the greater saphenous vein. 2. Deep veins show no thrombus. Diagnostic code #3
[2018-05-28] MEDS ORDERED: HYDROmorphone 1 MG/ML Syringe IM ONE (12:46)
--- NOTE | 2018-05-28 12:52 | EDM.PDOC ---
ED HPI GENERAL MEDICAL PROBLEM - General Chief Complaint: Lower Extremity Injury/Pain Stated Complaint: BLOOD CLOT IN LEG Time Seen by Provider: 05/28/18 10:21 Source of Information: Reports: Patient History Limitations: Reports: No Limitations - History of Present Illness INITIAL COMMENTS - FREE TEXT/NARRATIVE: The patient presents with right inner thigh pain. This has been going on for a few days. He had 4 vessel CABG 1 month ago. He developed a cellulitis in his right lower leg and has been treated for that. He noticed some swelling to his inner thigh and saw Dr Flores. Dr Flores ordered an US and the patient had a superficial thrombophlebitis. He is on coumadin and he has a filter. He woke up this morning with moderate to sever pain to the right inner thigh. He has no fever, chills, cough, congestion, chest pain or shortness of breath. Onset: Gradual Duration: Day(s): Location: Reports: Lower Extremity, Right (inner thigh) Quality: Reports: Sharp Severity: Moderate Improves with: Reports: None Worsens with: Reports: None Associated Symptoms: Reports: No Other Symptoms Right Upper Leg Pain Score (Numeric/FACES): 8 - Related Data Allergies Allergy/AdvReac Type Severity Reaction Status Date / Time No Known Allergies Allergy Verified 05/28/18 10:30 Home Meds: Home Meds Acetaminophen [Acetaminophen ER] 650 mg PO Q6H PRN 03/23/17 [History] Bacitracin [Bacitracin Oint 1 GM] 1 applic NASBOTH BID 03/23/17 [History] Calcium Carbonate/Vitamin D3 [Calcium 600 + Vit D 400 Softgl] 1 tab PO BIDMEALS 03/23/17 [History] Chlorhexidine Gluconate [Peridex 0.12% Rinse] 1 dose PO DAILY 03/23/17 [History] ClonazePAM [KlonoPIN] 1 mg PO BEDTIME 03/23/17 [History] Docusate Sodium 100 mg PO BID 03/23/17 [History] Fluticasone Propionate [Flonase Allergy Relief] 1 spray NASBOTH DAILY PRN [History] Gabapentin [Neurontin] 600 mg PO TID 03/23/17 [History] LORazepam 0.5 mg PO BID 03/23/17 [History] Levothyroxine 125 mcg PO DAILY 03/23/17 [History] Megadrox 2 tab PO DAILY 03/23/17 [History] Miconazole Nitrate [Fungoid Tincture] 1 applic TOP BID 03/23/17 [History] Nitroglycerin [Nitrostat] 0.4 mg SL Q5M PRN 03/23/17 [History] Oxybutynin Chloride [Ditropan Xl] 10 mg PO DAILY 03/23/17 [History] Phenytoin Sodium Extended 200 mg PO BID 03/23/17 [History] Polyethylene Glycol 3350 17 gm PO DAILY 03/23/17 [History] Saliva Substitution Combo No.9 [Biotene] 1 dose PO QID PRN 03/23/17 [History] Sodium Fluoride [Fluoridex] 1 applic TOP BID 03/23/17 [History] Tamsulosin [Flomax] 0.4 mg PO BID 03/23/17 [History] Testadrox 2 tab PO BEDTIME 03/23/17 [History] Zonisamide [Zonegran] 200 mg PO BID 03/23/17 [History] oxyCODONE ER [OxyCONTIN] 10 mg PO BID 03/23/17 [History] tiZANidine HCl [Tizanidine HCl] 8 mg PO DAILY 03/23/17 [History] Acetaminophen/oxyCODONE [Percocet 325-5 MG] 1 tab PO TID 07/14/17 [History] Ascorbate Calcium [Vitamin C] 500 mg PO DAILY 05/08/18 [History] Eye Vitamin With Lutein 1 tab PO DAILY 05/08/18 [History] Lidocaine 2% [Xylocaine 2% Jelly] 1 dose TOP DAILY PRN 05/08/18 [History] Metoprolol Tartrate [Lopressor] 25 mg PO BID 05/08/18 [History] Pantoprazole Sodium [Protonix] 20 mg PO DAILY 05/08/18 [History] Rosuvastatin [Crestor] 10 mg PO BEDTIME 05/08/18 [History] Sertraline [Zoloft] 100 mg PO DAILY 05/08/18 [History] Urea Cream 1 applic TOP Q48H 05/08/18 [History] Warfarin [Coumadin] 5 mg PO DAILY 05/08/18 [History] Aspirin [Ecotrin] 81 mg PO DAILY 05/28/18 [History] K Pad. 1 applic TOP ASDIRECTED 05/28/18 [History] Past Medical History HEENT History: Reports: Sinusitis Cardiovascular History: Reports: Afib, Blood Clots/VTE/DVT, Heart Murmur, High Cholesterol, Hypertension, [place], Other (See Below) Other Cardiovascular History: atherosclerotic heart disease, recent NSTEMI (04/29) Respiratory History: Reports: Bronchitis, Recurrent, PE Gastrointestinal History: Reports: GERD, Hemorrhoids Genitourinary History: Reports: BPH, Urinary Incontinence, Other (See Below) Other Genitourinary History: urinary frequency, overactive bladder, malignant neoplasm of prostate [employer] History: Reports: None Musculoskeletal History: Reports: Other (See Below) Other Musculoskeletal History: chronic pain, restless legs Neurological History: Reports: Neuropathy, Peripheral, Seizure, Other (See Below ) Other Neuro History: convulsions Psychiatric History: Reports: Anxiety, Bipolar, Depression Endocrine/Metabolic History: Reports: Diabetes, Type II, Hypothyroidism Hematologic History: Reports: Anemia, Iron Deficiency Other Hematologic History: clotting disorder Immunologic History: Reports: None Oncologic (Cancer) History: Reports: Prostate Dermatologic History: Reports: None - Past Surgical History Head Surgeries/Procedures: Reports: None HEENT Surgical History: Reports: Cataract Surgery, Other (See Below) Other HEENT Surgeries/Procedures: retina surgery Cardiovascular Surgical History: Reports: Coronary Artery Bypass, Other (See Below) Other Cardiovascular Surgeries/Procedures: IVC filter Respiratory Surgical History: Reports: None GI Surgical History: Reports: Colonoscopy, EGD Social & Family History - Family History Family Medical History: Noncontributory - Tobacco Use Smoking Status *Q: Never Smoker Second Hand Smoke Exposure: No - Caffeine Use Caffeine Use: Reports: Coffee - Recreational Drug Use Recreational Drug Use: No - Living Situation & Occupation Living situation: Reports: Alone Review of Systems - Review of Systems Review Of Systems: See Below Constitutional: Reports: No Symptoms Eyes: Reports: No Symptoms Ears: Reports: No Symptoms Nose: Reports: No Symptoms Mouth/Throat: Reports: No Symptoms Respiratory: Reports: No Symptoms Cardiovascular: Reports: No Symptoms GI/Abdominal: Reports: No Symptoms Genitourinary: Reports: No Symptoms Musculoskeletal: Reports: Other (Pain and edema to the right inner thigh) ED EXAM, GENERAL - Physical Exam Exam: See Below Exam Limited By: No Limitations General Appearance: Alert, No Apparent Distress Ears: Normal External Exam Nose: Normal Inspection Head: Atraumatic, Normocephalic Neck: Normal Inspection Respiratory/Chest: No Respiratory Distress, Lungs Clear, Normal Breath Sounds Cardiovascular: Regular Rate, Rhythm, No Edema, No Murmur GI/Abdominal: Soft, Non-Tender, No Organomegaly, No Mass Back Exam: Normal Inspection Extremities: Other (Mild erythema to the inner lower leg where the vein was harvested. Mild to moderate edema along a vein to the inner thigh with some mild pain upon palpation. Good sensation and pulses distally.) Course - Vital Signs Last Recorded V/S: Last Vital Signs Temp 97.2 F 05/28/18 10:20 Pulse 75 05/28/18 10:20 Resp 18 05/28/18 10:20 BP 119/80 05/28/18 10:20 Pulse Ox 94 L 05/28/18 10:20 - Orders/Labs/Meds Orders: Active Orders 24 hr Category Date Time Status Cardiac Monitoring [RC] . DIRECTED Care 05/28/18 10:52 Active HYDROmorphone [Dilaudid] Med 05/28/18 12:46 Once 0.5 mg IM ONETIME ONE Medication Orders Hydromorphone HCl (Dilaudid) 0.5 mg IM ONETIME ONE Stop: 05/28/18 12:47 Labs: Laboratory Tests 05/28/18 05/28/18 05/28/18 Range/Units 11:44 11:44 11:44 WBC 5.50 (4.23-9.07) K/mm3 RBC 3.46 L (4.63-6.08) M/mm3 Hgb 11.3 L (13.7-17.5) gm/L Hct 35.1 L (40.1-51.0) % MCV 101.4 H (79.0-92.2) fl MCH 32.7 H (25.7-32.2) pg MCHC 32.2 (32.2-35.5) g/dl RDW Std Deviation 55.9 H (35.1-43.9) fL Plt Count 137 L (163-337) K/mm3 MPV 9.0 L (9.4-12.3) fl Neut % (Auto) 73.4 H (34.0-67.9) % Lymph % (Auto) 15.1 L (21.8-53.1) % [place] % (Auto) 8.0 (5.3-12.2) % Eos % (Auto) 3.3 (0.8-7.0) Baso % (Auto) 0.2 (0.1-1.2) % Neut # (Auto) 4.04 (1.78-5.38) K/mm3 Lymph # (Auto) 0.83 L (1.32-3.57) K/mm3 [place] # (Auto) 0.44 (0.30-0.82) K/mm3 Eos # (Auto) 0.18 (0.04-0.54) K/mm3 Baso # (Auto) 0.01 (0.01-0.08) K/mm3 PT 31.2 H (9.5-12.1) SECONDS INR 2.92 Sodium 137 (136-145) mEq/L Potassium 3.9 (3.5-5.1) mEq/L Chloride 107 (98-107) mEq/L Carbon Dioxide 24 (21-32) mEq/L Anion Gap 9.9 (5-15) BUN 10 (7-18) mg/dL Creatinine 0.8 (0.7-1.3) mg/dL Est Cr Clr Drug Dosing 87.45 mL/min Estimated GFR (MDRD) > 60 (>60) mL/min BUN/Creatinine Ratio 12.5 L (14-18) Glucose 104 (83-115) mg/dL Calcium 8.4 L (8.5-10.1) mg/dL Total Bilirubin 0.2 (0.2-1.0) mg/dL AST 26 (15-37) U/L ALT 22 (16-63) U/L Alkaline Phosphatase 224 H (46-116) U/L C-Reactive Protein 2.7 H* (<1.0) mg/dL Total Protein 6.6 (6.4-8.2) g/dl Albumin 3.0 L (3.4-5.0) g/dl Globulin 3.6 gm/dL Albumin/Globulin Ratio 0.8 L (1-2) Meds: Medications Generic Name Dose Route Start Last Admin Trade Name Freq PRN Reason Stop Dose Admin Hydromorphone HCl 0.5 mg 05/28/18 12:46 Dilaudid IM 05/28/18 12:47 ONETIME ONE - Re-Assessments/Exams Free Text/Narrative Re-Assessment/Exam: 05/28/18 12:54 I ordered labs and an US of his right leg to look for DVT. His WBC is normal. His Hgb is slightly low at 11.3. His platelets were a little low at 137. His INR was therapeutic at 2.92. His CRP was slightly elevated at 2.7. The US shows nonoccluding clot within the greater saphenous vein. Deep veins show no thrombus. He still has some pain so I ordered dilaudid 0.5mg IM. I will discharge him to home with symptomatic treatment. He is on coumadin. He is seeing Dr Flores tomorrow. Departure - Departure Time of Disposition: 13:00 Disposition: Home, Self-Care 01 Condition: Good Clinical Impression: Superficial thrombophlebitis of right leg - Discharge Information *PRESCRIPTION DRUG MONITORING PROGRAM REVIEWED*: No *COPY OF PRESCRIPTION DRUG MONITORING REPORT IN PATIENT ESTEFANY: No Referrals: Nestor Flores MD [Primary Care Provider] - 1 Day Additional Instructions: Take your medication as prescribed. Follow up with Dr Flores tomorrow. Please return if you are worse. Keep it elevated and put some warm compresses on your leg a couple times per day for 2 days. - My Orders Last 24 Hours: My Active Orders 05/28/18 10:52 Cardiac Monitoring [RC] . DIRECTED 05/28/18 12:46 HYDROmorphone [Dilaudid] 0.5 mg IM ONETIME ONE - Assessment/Plan Last 24 Hours: My Active Orders 05/28/18 10:52 Cardiac Monitoring [RC] . DIRECTED 05/28/18 12:46 HYDROmorphone [Dilaudid] 0.5 mg IM ONETIME ONE
== END 2018-05-28 13:14 | disposition home or self-care (01) ==
LOC: JD.ED 10:16
DX: I80.01 Phlebitis and thrombophlebitis of superficial vessels of right lower extremity (principal); I10 Essential (primary) hypertension; E11.9 Type 2 diabetes mellitus without complications; E03.9 Hypothyroidism, unspecified; Z79.82 Long term (current) use of aspirin; Z79.01 Long term (current) use of anticoagulants; Z79.899 Other long term (current) drug therapy
CPT/HCPCS: 36415; 80053; 85025; 85610; 86140; 93971; 96372; 99284; J1170

== ENCOUNTER 2020-05-30 19:59 | Emergency (ER) | payer MEDICARE, BC, MEDICAID ==
--- NOTE | 2020-05-30 20:07 | EDM.PDOC ---
ED HPI GENERAL MEDICAL PROBLEM - General Chief Complaint: Gastrointestinal Problem Stated Complaint: [facility] Time Seen by Provider: 05/30/20 20:05 Source of Information: Reports: Patient History Limitations: Reports: No Limitations - History of Present Illness INITIAL COMMENTS - FREE TEXT/NARRATIVE: 74-year-old male presents to the ED for evaluation of bright red blood in his diarrhea stool. He states he has had between 5 and 8 loose diarrhea stools today all containing some blood. Patient has been ill with a COVID-19 virus for greater than 10 days. He is a resident at [facility] where all patients have been COVID positive. He still has a paroxysmal cough ,mostly white sputum production and no hemoptysis. 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 No history of PE. Bowel movements are painless. He appreciates bright red blood with wiping after bowel movement as well. Patient reports he has not ate anything solid for 3 days. He feels very weak and shaky. Still having cough with some pleuritic like pain in his right lung base. No further fever or chills. Has been able to walk and get to the toilet on his own with a modest degree of difficulty. He has fallen a few times,mainly trying to get up off the toilet. No falls to the floor. He has bruises to his right hip and right posterior thigh. Denies hitting his head. He is alert and he knows who I am as we have met through the ED many times in the past several years. Onset: Today (Today is the first day he noted blood in his stools. Has been having diarrhea for 3 days.) Onset Date: 05/28/20 (Noticed with COVID-19 positivity greater than 10 days ago.) Duration: Hour(s):, Getting Worse Location: Reports: Chest (Intermittent paroxysmal cough with right pleuritic chest pain. Occasional white sputum production.), Other (Generalized weakness. Paroxysmal cough. COVID-19 illness for the last 10 days or more.) Quality: Reports: Other (Appreciates bright red blood per rectum with diarrhea stool times) Severity: Moderate (x8 today.) Improves with: Reports: None Worsens with: Reports: None Context: Reports: Sick Contact (Has COVID-19 illnesses do all patients at [facility].). Denies: Activity, Exercise, Lifting, Other Associated Symptoms: Reports: Chest Pain ( accessible cough. Right chest pain with coughing.), Cough (White sputum), cough w sputum, Fever/Chills, Loss of Appetite, Malaise (Not eaten anything solid for 3 days.), Shortness of Breath, Weakness. 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 - Related Data Allergies Allergy/AdvReac Type Severity Reaction Status Date / Time No Known Allergies Allergy Verified 05/30/20 20:07 Home Meds: Home Meds Chlorhexidine Gluconate [Peridex 0.12% Rinse] 1 dose PO DAILY 03/23/17 [History] Levothyroxine 125 mcg PO DAILY 03/23/17 [History] Phenytoin Sodium Extended 200 mg PO BID 03/23/17 [History] Sodium Fluoride [Fluoridex] 1 applic TOP BID 03/23/17 [History] Zonisamide [Zonegran] 200 mg PO BID 03/23/17 [History] polyethylene glycoL 3350 [Polyethylene Glycol 3350] 17 gm PO BID 03/23/17 [History] Eye Vitamin With Lutein 1 tab PO DAILY 05/08/18 [History] Rosuvastatin [Crestor] 20 mg PO BEDTIME 05/08/18 [History] Acetaminophen [Tylenol] 650 mg PO Q6H PRN 05/30/20 [History] Calcium Carbonate [Tums] 1,000 mg PO Q4H PRN 05/30/20 [History] DULoxetine [Cymbalta] 30 mg PO BID 05/30/20 [History] Gabapentin [Neurontin] 400 mg PO BID 05/30/20 [History] Gabapentin [Neurontin] 800 mg PO BEDTIME 05/30/20 [History] LORazepam [Ativan] 0.5 mg PO BID 05/30/20 [History] Metrogel Topical. 1 applic TOP DAILY 05/30/20 [History] Mirabegron [Myrbetriq] 25 mg PO DAILY 05/30/20 [History] Mupirocin [Centany] 1 applic TOP ASDIRECTED 05/30/20 [History] Oxybutynin 10 mg PO BEDTIME 05/30/20 [History] Pantoprazole Sodium [Protonix] 20 mg PO DAILY 05/30/20 [History] Warfarin [Coumadin] 4 mg PO MO 05/30/20 [History] Warfarin [Coumadin] 6 mg PO SUTUWETHFRSA 05/30/20 [History] quiNINE sulfate [Quinine Sulfate] 4 oz PO DAILY 05/30/20 [History] tiZANidine HCl [Zanaflex] 4 mg PO BEDTIME 05/30/20 [History] traZODone HCl [Trazodone HCl] 100 mg PO BEDTIME 05/30/20 [History] Past Medical History HEENT History: Reports: Sinusitis Cardiovascular History: Reports: Afib, Blood Clots/VTE/DVT, Heart Murmur, High Cholesterol, Hypertension, [place], Other (See Below) Other Cardiovascular History: atherosclerotic heart disease, recent NSTEMI (04/29/18) Respiratory History: Reports: Bronchitis, Recurrent, PE Gastrointestinal History: Reports: GERD, Hemorrhoids Genitourinary History: Reports: BPH, Urinary Incontinence, Other (See Below) Other Genitourinary History: urinary frequency, overactive bladder, malignant neoplasm of prostate 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: 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 Musculoskeletal History: Reports: Other (See Below) Other Musculoskeletal History: chronic pain, restless legs Neurological History: Reports: Neuropathy, Peripheral, Seizure, Other (See Below) Other Neuro History: convulsions Psychiatric History: Reports: Anxiety, Bipolar, Depression Endocrine/Metabolic History: Reports: Diabetes, Type II, Hypothyroidism Other Endocrine/Metabolic History: DM resolved with diet change Hematologic History: Reports: Anemia, Iron Deficiency Other Hematologic History: clotting disorder Immunologic History: Reports: None Oncologic (Cancer) History: Reports: Prostate Dermatologic History: Reports: None - Infectious Disease History Infectious Disease History: Reports: MRSA - Past Surgical History Head Surgeries/Procedures: Reports: None HEENT Surgical History: Reports: Cataract Surgery, Other (See Below) Other HEENT Surgeries/Procedures: retina surgery Cardiovascular Surgical History: Reports: Coronary Artery Bypass, Other (See Below) Other Cardiovascular Surgeries/Procedures: IVC filter Respiratory Surgical History: Reports: None GI Surgical History: Reports: Colonoscopy, EGD Social & Family History - Family History Family Medical History: Noncontributory - Caffeine Use Caffeine Use: Reports: Coffee - Living Situation & Occupation Living situation: Reports: Alone, Extended Care Facility (Currently a resident of [facility] which is an assisted living center.) Occupation: Retired ED ROS GENERAL - Review of Systems Review Of Systems: See Below Constitutional: Reports: Fever, Chills (Did have fever and with initial onset of COVID-19 illness a week ago.), Malaise, Weakness ( A week ago it but not now), Fatigue, Decreased Appetite (Has not eaten anything solid for 3 days.), Weight Loss HEENT: Reports: Glasses Respiratory: Reports: Shortness of Breath, Cough, Sputum (Accessible cough.), Other (Pleuritic leg chest pain right lung base with coughing.). Denies: Wheezing, Hemoptysis ( Whitish sputum at times) Cardiovascular: Reports: No Symptoms, Chest Pain (Only with coughing.), Dyspnea on Exertion. Denies: Blood Pressure Problem, Claudication, Edema, Lightheadedness, Orthopnea, Palpitations Endocrine: Reports: Fatigue GI/Abdominal: Reports: Diarrhea (Diarrhea yellow and and loose greater than 5 times daily for the last 3 days. Today's stools all contained a trace of bright red blood. Also blood noted on toilet paper when wiping. Bowel movements are painless.), Decreased Appetite, Hematochezia. Denies: Difficulty Swallowing, Distension, Flatus, Hematemesis, Melena, Nausea : Reports: Other (Decreased urinary output. Urine is dark in color.) Musculoskeletal: Reports: Back Pain Skin: Reports: Bruising (Patient has bruising to his right hip and posterior right thigh. States this is from falling or trying to get on and off the toilet.) Neurological: Reports: Difficulty Walking, Weakness. Denies: Confusion, Dizziness, Headache Psychiatric: Reports: Depression, Other (History of bipolar affective disorder.) Hematologic/Lymphatic: Reports: Easy Bleeding, Easy Bruising (He is on Coumadin.) Immunologic: Reports: No Symptoms ED EXAM, GI/ABD - Physical Exam Exam: See Below Exam Limited By: No Limitations General Appearance: Alert, WD/WN, Mild Distress, Other (Appears ill. Temperature is 36.7 heart rate was 100 sats are 91 to 93% on room air. BP 09/25/1976.) Eyes: Bilateral: Normal Appearance (No blepharal pallor or scleral icterus.) Throat/Mouth: Normal Oropharynx, Other (Tongue is dry and coated.) Head: Atraumatic (And dry.), Normocephalic Neck: Normal Inspection, Supple, Non-Tender, Full Range of Motion. No: Carotid Bruit, Lymphadenopathy (L), Lymphadenopathy (R) Respiratory/Chest: Lungs Clear, Normal Breath Sounds, No Accessory Muscle Use, Chest Non-Tender, Respiratory Distress (Tachypnea at rest with sats of 91 to 93% room air.) Cardiovascular: Normal Peripheral Pulses, Regular Rate, Rhythm, No Edema, No Gallop, No Murmur, No Rub, Other (Well-healed midline sternotomy incision.) GI/Abdominal Exam: Soft (Bowel sounds are mildly hyperactive in all 4 quadrants.), Non-Tender, No Organomegaly, No Mass, Pelvis Stable, Abnormal Bowel Sounds Rectal (Males) Exam: Normal Exam, Normal Rectal Tone, Prostate Normal, Heme + Stool ( mucousy fluid with bright red blood.), Other (Stool in the rectal vault identified. Gloved finger did consensus some yellowish) Back Exam: Normal Inspection, Decreased Range of Motion. No: CVA Tenderness (L), CVA Tenderness (R) Extremities: Normal Range of Motion, Non-Tender, Pedal Edema (Edema at the ankles.), Other (Patient has marked venous stasis dermatitis both lower extremities from ankle to knee.) Neurological: Alert, Oriented, CN II-XII Intact, Normal Cognition, No Motor/Sensory Deficits Psychiatric: Flat Affect Skin Exam: Warm, Dry, Intact, Normal Color, No Rash, Ecchymosis (X-ray noted over the right hip and right posterior thigh linear bruise approximately 8 cm in length and 3 cm in width posterior right thigh) EKG INTERPRETATION EKG Date: 05/30/20 Time: 20:43 Rhythm: Other (Occasional PACs.) Rate (Beats/Min): 88 [place]: LAD-Left [place] Deviation (And left axis deviation -16 degrees.) P-Wave: Present QRS: Other (Decreased voltage in the precordial leads. There are new Q waves in leads III and aVF. Consider old inferior wall myocardial infarction) QT: Prolonged (Mildly prolonged.) EKG Interpretation Comments: Abnormal ECG Course - Vital Signs Last Recorded V/S: Last Vital Signs Temp 36.9 C 05/30/20 23:05 Pulse 86 05/30/20 23:05 Resp 28 H 05/30/20 23:05 BP 131/76 05/30/20 23:05 Pulse Ox 90 L 05/30/20 23:05 - Orders/Labs/Meds Labs: Laboratory Tests 05/30/20 05/30/20 05/30/20 Range/Units 20:44 20:44 20:44 WBC 4.63 (4.23-9.07) K/mm3 RBC 4.38 L (4.63-6.08) M/mm3 Hgb 14.7 (13.7-17.5) gm/dl Hct 41.6 (40.1-51.0) % MCV 95.0 H D (79.0-92.2) fl MCH 33.6 H (25.7-32.2) pg MCHC 35.3 (32.2-35.5) g/dl RDW Std Deviation 45.6 H (35.1-43.9) fL Plt Count 90 L (163-337) K/mm3 MPV 9.7 (9.4-12.3) fl Neut % (Auto) 81.3 H (34.0-67.9) % Lymph % (Auto) 11.4 L (21.8-53.1) % [place] % (Auto) 6.9 (5.3-12.2) % Eos % (Auto) 0 L (0.8-7.0) Baso % (Auto) 0.2 (0.1-1.2) % Neut # (Auto) 3.76 (1.78-5.38) K/mm3 Lymph # (Auto) 0.53 L (1.32-3.57) K/mm3 [place] # (Auto) 0.32 (0.30-0.82) K/mm3 Eos # (Auto) 0.00 L (0.04-0.54) K/mm3 Baso # (Auto) 0.01 (0.01-0.08) K/mm3 Manual Slide Review Abnormal smear PT 72.8 H* (9.7-11.7) SECONDS INR 7.07 H* APTT 68 H (22-31) SECONDS Sodium 131 L D (136-145) mEq/L Potassium 4.0 (3.5-5.1) mEq/L Chloride 95 L D (98-107) mEq/L Carbon Dioxide 22 (21-32) mEq/L Anion Gap 18.0 H (5-15) BUN 18 (7-18) mg/dL Creatinine 1.2 (0.7-1.3) mg/dL Est Cr Clr Drug Dosing 56.61 mL/min Estimated GFR (MDRD) 59 (>60) mL/min BUN/Creatinine Ratio 15.0 (14-18) Glucose 203 H (83-115) mg/dL Calcium 7.8 L (8.5-10.1) mg/dL Magnesium 2.0 (1.8-2.4) mg/dl Ferritin (26-388) ng/ml Total Bilirubin 0.5 (0.2-1.0) mg/dL AST 73 H (15-37) U/L ALT 36 (16-63) U/L Alkaline Phosphatase 127 H (46-116) U/L Lactate Dehydrogenase 560 H (85-227) U/L Troponin I 0.030 (0.00-0.056) ng/mL C-Reactive Protein 15.9 H* (<1.0) mg/dL NT-Pro-B Natriuret Pep (0-125) pg/mL Total Protein 6.4 (6.4-8.2) g/dl Albumin 2.5 L (3.4-5.0) g/dl Globulin 3.9 gm/dL Albumin/Globulin Ratio 0.6 L (1-2) Ketones (0.0-0.3) mM Blood Type 05/30/20 05/30/20 05/30/20 Range/Units 20:44 20:44 20:44 WBC (4.23-9.07) K/mm3 RBC (4.63-6.08) M/mm3 Hgb (13.7-17.5) gm/dl Hct (40.1-51.0) % MCV (79.0-92.2) fl MCH (25.7-32.2) pg MCHC (32.2-35.5) g/dl RDW Std Deviation (35.1-43.9) fL Plt Count (163-337) K/mm3 MPV (9.4-12.3) fl Neut % (Auto) (34.0-67.9) % Lymph % (Auto) (21.8-53.1) % [place] % (Auto) (5.3-12.2) % Eos % (Auto) (0.8-7.0) Baso % (Auto) (0.1-1.2) % Neut # (Auto) (1.78-5.38) K/mm3 Lymph # (Auto) (1.32-3.57) K/mm3 [place] # (Auto) (0.30-0.82) K/mm3 Eos # (Auto) (0.04-0.54) K/mm3 Baso # (Auto) (0.01-0.08) K/mm3 Manual Slide Review PT (9.7-11.7) SECONDS INR APTT (22-31) SECONDS Sodium (136-145) mEq/L Potassium (3.5-5.1) mEq/L Chloride (98-107) mEq/L Carbon Dioxide (21-32) mEq/L Anion Gap (5-15) BUN (7-18) mg/dL Creatinine (0.7-1.3) mg/dL Est Cr Clr Drug Dosing mL/min Estimated GFR (MDRD) (>60) mL/min BUN/Creatinine Ratio (14-18) Glucose (83-115) mg/dL Calcium (8.5-10.1) mg/dL Magnesium (1.8-2.4) mg/dl Ferritin 2218 H (26-388) ng/ml Total Bilirubin (0.2-1.0) mg/dL AST (15-37) U/L ALT (16-63) U/L Alkaline Phosphatase (46-116) U/L Lactate Dehydrogenase (85-227) U/L Troponin I (0.00-0.056) ng/mL C-Reactive Protein (<1.0) mg/dL NT-Pro-B Natriuret Pep 281 H (0-125) pg/mL Total Protein (6.4-8.2) g/dl Albumin (3.4-5.0) g/dl Globulin gm/dL Albumin/Globulin Ratio (1-2) Ketones 1.26 (0.0-0.3) mM Blood Type 05/30/20 05/31/20 05/31/20 Range/Units 20:44 06:02 06:02 WBC (4.23-9.07) K/mm3 RBC (4.63-6.08) M/mm3 Hgb (13.7-17.5) gm/dl Hct (40.1-51.0) % MCV (79.0-92.2) fl MCH (25.7-32.2) pg MCHC (32.2-35.5) g/dl RDW Std Deviation (35.1-43.9) fL Plt Count (163-337) K/mm3 MPV (9.4-12.3) fl Neut % (Auto) (34.0-67.9) % Lymph % (Auto) (21.8-53.1) % [place] % (Auto) (5.3-12.2) % Eos % (Auto) (0.8-7.0) Baso % (Auto) (0.1-1.2) % Neut # (Auto) (1.78-5.38) K/mm3 Lymph # (Auto) (1.32-3.57) K/mm3 [place] # (Auto) (0.30-0.82) K/mm3 Eos # (Auto) (0.04-0.54) K/mm3 Baso # (Auto) (0.01-0.08) K/mm3 Manual Slide Review PT 18.8 H D (9.7-11.7) SECONDS INR 1.78 APTT (22-31) SECONDS Sodium 132 L (136-145) mEq/L Potassium 3.8 (3.5-5.1) mEq/L Chloride 97 L (98-107) mEq/L Carbon Dioxide 23 (21-32) mEq/L Anion Gap 15.8 H (5-15) BUN 12 (7-18) mg/dL Creatinine 1.0 (0.7-1.3) mg/dL Est Cr Clr Drug Dosing 67.93 mL/min Estimated GFR (MDRD) > 60 (>60) mL/min BUN/Creatinine Ratio 12.0 L (14-18) Glucose 166 H (83-115) mg/dL Calcium 8.0 L (8.5-10.1) mg/dL Magnesium (1.8-2.4) mg/dl Ferritin (26-388) ng/ml Total Bilirubin 0.6 (0.2-1.0) mg/dL AST 82 H (15-37) U/L ALT 39 (16-63) U/L Alkaline Phosphatase 124 H (46-116) U/L Lactate Dehydrogenase (85-227) U/L Troponin I (0.00-0.056) ng/mL C-Reactive Protein (<1.0) mg/dL NT-Pro-B Natriuret Pep (0-125) pg/mL Total Protein 6.6 (6.4-8.2) g/dl Albumin 2.6 L (3.4-5.0) g/dl Globulin 4.0 gm/dL Albumin/Globulin Ratio 0.7 L (1-2) Ketones (0.0-0.3) mM Blood Type A POSITIVE Meds: Medications Discontinued Medications Generic Name Dose Route Start Last Admin Trade Name Freq PRN Reason Stop Dose Admin Dexamethasone 6 mg 05/31/20 07:18 05/31/20 11:59 Dexamethasone IVPUSH 05/31/20 07:19 6 mg ONETIME ONE Administration Dicyclomine HCl 20 mg 05/30/20 20:29 05/30/20 20:36 Bentyl PO 05/30/20 20:30 20 mg ONETIME ONE Administration Dicyclomine HCl 20 mg 05/31/20 07:18 05/31/20 11:58 Bentyl PO 05/31/20 07:19 20 mg ONETIME ONE Administration Dextrose/Lactated Ringer's 1,000 mls @ 999 mls/hr 05/30/20 20:30 05/30/20 20:36 Dextrose 5%-Lactated Ringers IV 999 mls/hr ASDIRECTED NEETA Administration Phytonadione 1 mg/ Sodium 50.5 mls @ 100 mls/hr 05/30/20 21:36 05/30/20 22:03 Chloride IV 05/30/20 22:06 100 mls/hr ONETIME ONE Administration Sodium Chloride 1,000 mls @ 100 mls/hr 05/30/20 22:00 05/30/20 22:03 Normal Saline IV 100 mls/hr ASDIRECTED NEETA Administration Lorazepam 1 mg 05/30/20 22:33 05/30/20 22:40 Ativan IV 05/30/20 22:34 0.5 mg ONETIME ONE Administration - Radiology Interpretation Free Text/Narrative:: 74-year-old male who is currently a resident of [facility] here in [place]. All the patient is there have COVID-19 illness. He states he was diagnosed greater than 10 days ago. He still has a mild paroxysmal cough productive of some whitish sputum. He has had diarrhea for the last 3 to 4 days. Today seems to be worse with production of yellowish stools greater than 5-8 times with bright red blood noted on all stools today. Patient states problems are painless. No significant lower abdominal cramping pain. Has not eaten anything solid for 3 days. He still able to get up to the toilet on his own volition. Extremely weak. Exam reveals tongue to be dry and coated. Appears to be volume depleted clinically. Patient does take Coumadin daily for past history of DVT x2 in his lower extremities. No history of PE. He has a history of open heart surgery with coronary bypass. Clinically he is in sinus rhythm. Plan IV will be D5 LR at open. Routine labs including coags to be done and serum ferritin and LDH. He will be given Bentyl 20 mg p.o. for relief of cramps and diarrhea. Clinically patient does not appear to be anemic. - Re-Assessments/Exams Free Text/Narrative Re-Assessment/Exam: 05/30/20 21:39 White count is 4.63 with 81% neutrophils reported on the auto differential. Hemoglobin is 14.7 with hematocrit of 41.6. MCV is slightly elevated at 95. Platelet count is low at 90,000. Of note he is COVID-19 positive. PT is elevated at 72.8 with an INR of 7.07 and a PTT of 68. Sodium is low at 131 with a potassium of 4.0. Chloride 95 with bicarb of 22. Anion gap is mildly elevated at 18.0. BUN is 18 with a creatinine of 1.2. GFR is 59. Glucose is elevated at 203. Patient is known to be a type II diabetic. Calcium is low at 7.8 from not eating. Magnesium is 2.0. Liver function reveals normal bilirubin but AST elevated at 73 normal ALT at 36 . Alk phosphatase slightly elevated at 127. LDH is elevated at 560. Troponin I is 0.030. C-reactive protein is 15.9. BNP slightly elevated at 281. Total protein is 6.4 with a low albumin fraction of 2.5. Serum ketones are elevated at 1.26. Chest x-ray reveals heart to be somewhat enlarged. Previous sternotomy is appreciated. Gas-filled bowel is noted within the upper abdomen. Lungs show no acute parenchymal changes. Bony structures are grossly intact. Patient will be given a unit of fresh frozen plasma once he is crossmatched. He will be given 1 mg of AquaMEPHYTON IV. 05/30/20 22:32 Plan: I will keep the patient in the emergency room overnight as there are no beds in the hospital at this time. I will recheck his hemoglobin and INR in the morning. His unit of fresh frozen plasma is now available and will be infused shortly. I am going to give the patient 1 mg of Ativan IV so that he can sleep tonight while in the department. He usually takes 0.5 mg twice daily. He usually takes trazodone 100 mg at bedtime also. We will continue IV fluids normal saline at 75 mils an hour overnight.Contemplated IV Dexamethasone but his blood sugar is 205 which would be aggravated by IV steroids. This is primarily crept correct mild hyponatremia. Sats are between 88 and 91%. He is currently on 3 L of oxygen by nasal cannula. Therefore if he received 0.5 mg of Ativan now and 0.5 mg later if needed to allow him to sleep. 05/30/20 23:46 blood pressure is 128/73 with a heart rate of 86 and O2 sats of 91% on 3 L.Markers for COVID-19 elements are strongly positive with a ferritin level of 2218. LDH is elevated at 560. 05/31/20 02:18 he has been sleeping. 02 sats remain 89 to 92% on 3 L. 05/31/20 04:36 He has not had any further diarrhea stools since admission to the ED. Heart rate is 82 and sinus with O2 sats of 92% on 3 L/min per nasal cannula while sleeping. He will be for repeat CMP and PT/INR at 0600 hrs. 05/31/20 07:07 Repeat labs this morning revealed a marked drop in his PT to 18.8 with an INR now 1.78. Sodium is 132. Potassium is 3.8 chloride is 97 with a bicarb of 20. Anion gap is 15.8. BUN is 12 with a creatinine of 1.0 and GFR greater than 60. Glucose 166 this morning calcium 8.0 which remained slightly low from not eating. AST is 82 ALT is 39 alk phosphatase is 124. Total protein is 6.6 with a low albumin of 2.6. Plan will be to arrange for oxygen therapy per nasal cannula at [facility] where he resides. This will be discussed with Loli Peck and we will have them fax over the required forms to fill out and fax them back to them. I will place his Coumadin on hold for today and start back tomorrow although lower dose of 4 mg once daily instead of 6 mg until he is eating normally. He is on it for prophylaxis more or less because of DVTs in the past. I will give him 1 Bentyl tablet 20 mg by mouth now. This is in the hopes of preventing any more diarrhea. Patient does not want anything to eat or drink this morning. He did take some water at my request in his room. I am going to give him 1 dose of dexamethasone 6 mg IV. Further continued dosing is felt to be problematic as dexamethasone will increase his Dilantin levels and his blood sugars. Departure - Departure Time of Disposition: 11:45 Disposition: DC/Tfer to [facility] 64 Condition: Fair Clinical Impression: Hematochezia, Diarrhea due to COVID-19, Hypoxia, COVID-19 determined by clinical diagnostic criteria, Elevated international normalized ratio (INR) due to prior anticoagulant medication ingestion - Discharge Information *PRESCRIPTION DRUG MONITORING PROGRAM REVIEWED*: Not Applicable *COPY OF PRESCRIPTION DRUG MONITORING REPORT IN PATIENT ESTEFANY: Not Applicable Instructions: COVID-19 Frequently Asked Questions, Hypoxemia, COVID-19: How to Protect Yourself and Others - CDC, Lower Gastrointestinal Bleeding, Diarrhea, Adult, [id number] Referrals: Nestor Flores MD [Primary Care Provider] - Forms: ED Department Discharge Additional Instructions: Evaluation in the emergency room due to reported bright red blood in the stools all day yesterday. Known to be sick with COVID-19 illness for greater than 10 days. Anticoagulation with Coumadin chronically due to previous DVT x2. Lab wo rk identified that you were mildly dehydrated and required a liter of IV fluids. You were given Bentyl 20 mg by mouth to reduce further diarrhea and no diarrhea occurred overnight. You were found to be hyperanticoagulated with your PT at 71.2 and your INR greater than 7.07. INR should be 2.5-2.3. In fact it could be left at 1.8-2.0 if medication is used only for prevention. At any rate he required treatment with intravenous vitamin K -1 mg and a unit of fresh frozen plasma to reverse high INR and propensity to bleed. Lab work this morning reveals INR is down to 1.78. No Coumadin to be used today but you may resume your Coumadin dose tomorrow . I would suggest using only 4 mg once daily until you are eating and taking in a normal diet and then you may return to previous dose of 4 mg of Coumadin on Mondays and 6 mg the remainder of the week. Suggest a repeat PT/INR in 5 to 7 days time. You were identified to be low on oxygen while you were in the emergency room due to COVID-19 illness. Chest x-ray does not reveal any signs of active pneumonia at this time. We will arrange for home oxygen therapy at [facility] with oxygen to be given by nasal cannula at 3 L/min until the lungs recover from COVID-19 illness. Trying to get in as much fluids as possible. Must drink other fluids other than just water to maintain electrolytes normality. Fluid such as Gatorade Powerade or any juice is suitable as well as taking in water. Avoid coffee and tea until no further diarrhea. Avoid dairy products and suggest no apple juice until diarrhea has resolved.
[2020-05-30] MEDS ORDERED: Dicyclomine 10 MG Cap PO ONE (20:29)
[2020-05-30] MEDS ORDERED: Dextrose 5%-Lactated Ringers 1,000 ML IV SCH (20:30)
--- NOTE | 2020-05-30 21:35 | CR ---
Chest: Portable view of the chest was obtained. Comparison: Prior chest x-ray of 05/08/18. Heart is somewhat enlarged. Previous sternotomy is noted. Gas-filled bowel is noted within the upper abdomen. Lungs show no acute parenchymal change. Bony structures are grossly intact. Impression: 1. Findings as noted above. 2. Air-filled bowel within the upper abdomen. Please correlate that patient has no abdominal symptoms. 3. Nothing acute is otherwise seen. Diagnostic code #3 This report was dictated in MDT
[2020-05-30] MEDS ORDERED: Phytonadione 1 MG in Sodium Chloride 0.9% 50 ML IV ONE (21:36)
[2020-05-30] MEDS ORDERED: Sodium Chloride 0.9% 1,000 ML IV SCH (22:00)
[2020-05-30] MEDS ORDERED: LORazepam 2 MG/ML SDV IV ONE (22:33)
[2020-05-30 23:11] VITALS: BP 131/76; PULSE 86
[2020-05-31] MEDS ORDERED: Dexamethasone 4 MG/ML SDV IVPUSH ONE (07:18)
[2020-05-31] MEDS ORDERED: Dicyclomine 10 MG Cap PO ONE (07:18)
== END 2020-05-31 11:59 ==
LOC: JD.ED 19:59
DX: U07.1 COVID-19 (principal); K92.1 Melena; R19.7 Diarrhea, unspecified; T45.511A Poisoning by anticoagulants, accidental (unintentional), initial encounter; D50.9 Iron deficiency anemia, unspecified; F41.9 Anxiety disorder, unspecified; F31.9 Bipolar disorder, unspecified; E03.9 Hypothyroidism, unspecified; K21.9 Gastro-esophageal reflux disease without esophagitis; E78.00 Pure hypercholesterolemia, unspecified; I48.91 Unspecified atrial fibrillation; I11.0 Hypertensive heart disease with heart failure; I50.89 Other heart failure; Z79.84 Long term (current) use of oral hypoglycemic drugs; Z79.899 Other long term (current) drug therapy
CPT/HCPCS: 36415; 36430; 71045; 80053; 82009; 82728; 83615; 83735; 83880; 84484; 85025; 85610; 85730; 86140; 86900; 86901; 93005; 96361; 96365; 96375; 99284; A9270; J1100; J2060; J3430; J7030; J7050; J7121; P9017; 93010

== ENCOUNTER 2020-06-02 10:00 | Emergency (ER) | payer MEDICARE, BC, MEDICAID ==
[2020-06-02 10:24] VITALS: BP 109/72; PULSE 106
[2020-06-02] MEDS ORDERED: Sodium Chloride 0.9% 10 ML Syringe FLUSH PRN ×2 (10:34→13:11)
[2020-06-02] MEDS ORDERED: Sodium Chloride 0.9% 1,000 ML IV ONE (12:40)
[2020-06-02] MEDS ORDERED: Iopamidol 755 Mg/ML 100 ML Bottle IVPUSH ONE (13:11)
[2020-06-02] MEDS ORDERED: Iopamidol 755 MG/ML 50 ML Bottle IVPUSH ONE (13:11)
[2020-06-02] MEDS ORDERED: HYDROmorphone 1 MG/ML Syringe IVPUSH ONE (13:12)
[2020-06-02] MEDS ORDERED: Sodium Chloride 0.9% 100 ML IV SCH (13:15)
[2020-06-02] MEDS ORDERED: Morphine 4 MG/ML VIAL IVPUSH ONE (15:38)
[2020-06-02] MEDS ORDERED: LORazepam 2 MG/ML SDV IVPUSH ONE (15:38)
--- NOTE | 2020-06-02 15:47 | EDM.PDOC ---
ED HPI GENERAL MEDICAL PROBLEM - General Chief Complaint: Respiratory Problem Stated Complaint: [facility] Time Seen by Provider: 06/02/20 10:28 Source of Information: Reports: Patient, Fpc Records History Limitations: Reports: No Limitations - History of Present Illness INITIAL COMMENTS - FREE TEXT/NARRATIVE: The patient presents by [facility] from [facility] for a cough and shortness of breath. He is COVID positive for over 2 weeks. He has not felt good since and he is feeling worse. He is more short of breath. He has generalized weakness and muscle aches. He has a history of A-fib, PE, HTN, CO and bronchitis. Onset: Gradual Duration: Week(s): Location: Reports: Generalized Quality: Reports: Ache Severity: Moderate Improves with: Reports: None Worsens with: Reports: None Associated Symptoms: Reports: Cough, Fever/Chills, Shortness of Breath. Denies: Chest Pain, Headaches, Nausea/Vomiting - Related Data Allergies Allergy/AdvReac Type Severity Reaction Status Date / Time No Known Allergies Allergy Verified 06/02/20 10:17 Home Meds: Home Meds Chlorhexidine Gluconate [Peridex 0.12% Rinse] 1 dose PO DAILY 03/23/17 [History] Levothyroxine 125 mcg PO DAILY 03/23/17 [History] Phenytoin Sodium Extended 200 mg PO BID 03/23/17 [History] Sodium Fluoride [Fluoridex] 1 applic TOP BID 03/23/17 [History] Zonisamide [Zonegran] 200 mg PO BID 03/23/17 [History] polyethylene glycoL 3350 [Polyethylene Glycol 3350] 17 gm PO BID 03/23/17 [History] Eye Vitamin With Lutein 1 tab PO DAILY 05/08/18 [History] Rosuvastatin [Crestor] 20 mg PO BEDTIME 05/08/18 [History] Acetaminophen [Tylenol] 650 mg PO Q6H PRN 05/30/20 [History] Calcium Carbonate [Tums] 1,000 mg PO Q4H PRN 05/30/20 [History] DULoxetine [Cymbalta] 30 mg PO BID 05/30/20 [History] Gabapentin [Neurontin] 400 mg PO BID 05/30/20 [History] Gabapentin [Neurontin] 800 mg PO BEDTIME 05/30/20 [History] LORazepam [Ativan] 0.5 mg PO BID 05/30/20 [History] Metrogel Topical. 1 applic TOP DAILY 05/30/20 [History] Mirabegron [Myrbetriq] 25 mg PO DAILY 05/30/20 [History] Mupirocin [Centany] 1 applic TOP ASDIRECTED 05/30/20 [History] Oxybutynin 10 mg PO BEDTIME 05/30/20 [History] Pantoprazole Sodium [Protonix] 40 mg PO DAILY 05/30/20 [History] Warfarin [Coumadin] 4 mg PO MO 05/30/20 [History] Warfarin [Coumadin] 6 mg PO SUTUWETHFRSA 05/30/20 [History] tiZANidine HCl [Zanaflex] 4 mg PO BEDTIME 05/30/20 [History] traZODone HCl [Trazodone HCl] 100 mg PO BEDTIME 05/30/20 [History] Past Medical History HEENT History: Reports: Sinusitis Cardiovascular History: Reports: Afib, Blood Clots/VTE/DVT, Heart Murmur, High Cholesterol, Hypertension, CO, Other (See Below) Other Cardiovascular History: atherosclerotic heart disease, recent NSTEMI (04/29/18) Respiratory History: Reports: Bronchitis, Recurrent, PE Gastrointestinal History: Reports: GERD, Hemorrhoids Genitourinary History: Reports: BPH, Urinary Incontinence, Other (See Below) Other Genitourinary History: urinary frequency, overactive bladder, malignant neoplasm of prostate DISPATCHER SERVICE OR WORK History: Reports: None Musculoskeletal History: Reports: Other (See Below) Other Musculoskeletal History: chronic pain, restless legs Neurological History: Reports: Neuropathy, Peripheral, Seizure, Other (See Below) Other Neuro History: convulsions Psychiatric History: Reports: Anxiety, Bipolar, Depression Endocrine/Metabolic History: Reports: Diabetes, Type II, Hypothyroidism Other Endocrine/Metabolic History: DM resolved with diet change Hematologic History: Reports: Anemia, Iron Deficiency Other Hematologic History: clotting disorder Immunologic History: Reports: None Oncologic (Cancer) History: Reports: Prostate Dermatologic History: Reports: None - Infectious Disease History Infectious Disease History: Reports: MRSA, Other (See Below) Other Infectious Disease History: COVID - Past Surgical History Head Surgeries/Procedures: Reports: None HEENT Surgical History: Reports: Cataract Surgery, Other (See Below) Other HEENT Surgeries/Procedures: retina surgery Cardiovascular Surgical History: Reports: Coronary Artery Bypass, Other (See Below) Other Cardiovascular Surgeries/Procedures: IVC filter Respiratory Surgical History: Reports: None GI Surgical History: Reports: Colonoscopy, EGD Social & Family History - Family History Family Medical History: Noncontributory - Tobacco Use Smoking Status *Q: Former Smoker Used Tobacco, but Quit: Yes Month/Year Tobacco Last Used: 09/2002 - Caffeine Use Caffeine Use: Reports: Coffee - Recreational Drug Use Recreational Drug Use: No - Living Situation & Occupation Living situation: Reports: Alone, Extended Care Facility (Currently a resident of [facility] which is an assisted living center.) Occupation: Retired ED ROS GENERAL - Review of Systems Review Of Systems: See Below Constitutional: Reports: Fever, Chills HEENT: Reports: No Symptoms Respiratory: Reports: Shortness of Breath, Cough Cardiovascular: Reports: No Symptoms Endocrine: Reports: No Symptoms GI/Abdominal: Reports: No Symptoms : Reports: No Symptoms Musculoskeletal: Reports: No Symptoms Skin: Reports: No Symptoms ED EXAM, GENERAL - Physical Exam Exam: See Below Exam Limited By: No Limitations General Appearance: Alert, Moderate Distress Ears: Normal External Exam Nose: Normal Inspection Head: Atraumatic, Normocephalic Neck: Normal Inspection Respiratory/Chest: Respiratory Distress (moderate), Decreased Breath Sounds, Rhonchi Cardiovascular: No Edema, No Murmur, Tachycardia GI/Abdominal: Soft, Non-Tender, No Organomegaly, No Mass Extremities: Normal Inspection EKG INTERPRETATION EKG Date: 06/02/20 Time: 10:45 Rhythm: Other (Sinus) Rate (Beats/Min): 104 [place]: LAD-Left [place] Deviation P-Wave: Present QRS: Normal ST-T: Normal QT: Prolonged Course - Vital Signs Last Recorded V/S: Last Vital Signs Temp 97.1 F 06/02/20 10:20 Pulse 106 H 06/02/20 10:20 Resp 33 H 06/02/20 10:20 BP 109/72 06/02/20 10:20 Pulse Ox 88 L 06/02/20 10:20 - Orders/Labs/Meds Orders: Active Orders 24 hr Category Date Time Status Chest 1V Frontal [CR] Stat Exams 06/02/20 10:35 Taken CULTURE BLOOD [BC] Stat Lab 06/02/20 10:55 Received CULTURE BLOOD [BC] Stat Lab 06/02/20 11:05 Received Blood Culture x2 Reflex Set [OM.PC] Stat Ot 06/02/20 10:35 Ordered Saline Lock Insert [OM.PC] Stat Ot 06/02/20 10:34 Ordered Labs: Laboratory Tests 06/02/20 06/02/20 06/02/20 Range/Units 10:05 10:05 10:05 WBC 8.56 (4.23-9.07) K/mm3 RBC 4.93 (4.63-6.08) M/mm3 Hgb 16.0 (13.7-17.5) gm/dl Hct 46.6 (40.1-51.0) % MCV 94.5 H (79.0-92.2) fl MCH 32.5 H (25.7-32.2) pg MCHC 34.3 (32.2-35.5) g/dl RDW Std Deviation 46.4 H (35.1-43.9) fL Plt Count 162 L (163-337) K/mm3 MPV 9.7 (9.4-12.3) fl Neut % (Auto) 86.7 H (34.0-67.9) % Lymph % (Auto) 8.1 L (21.8-53.1) % [facility] % (Auto) 4.0 L (5.3-12.2) % Eos % (Auto) 0.1 L (0.8-7.0) Baso % (Auto) 0.2 (0.1-1.2) % Neut # (Auto) 7.42 H (1.78-5.38) K/mm3 Lymph # (Auto) 0.69 L (1.32-3.57) K/mm3 [facility] # (Auto) 0.34 (0.30-0.82) K/mm3 Eos # (Auto) 0.01 L (0.04-0.54) K/mm3 Baso # (Auto) 0.02 (0.01-0.08) K/mm3 Manual Slide Review Normal smear PT 12.9 H D (9.7-11.7) SECONDS INR 1.21 APTT 28 D (22-31) SECONDS D-Dimer, Quantitative 10.49 H (0.19-0.50) mg/L Puncture Site ABG pH (7.35-7.45) ABG pCO2 (35.0-45.0) mmHg ABG pO2 (80.0-100.0) mmHg ABG HCO3 (22.0-26.0) meq/L ABG O2 Saturation (96.0-97.0) % ABG Base Excess (-2-2.0) Villa Test A-a Gradient mmHg O2 Delivery Device Oxygen Flow Rate FiO2 (21.00-100.00) % Sodium 132 L (136-145) mEq/L Potassium 3.6 (3.5-5.1) mEq/L Chloride 96 L (98-107) mEq/L Carbon Dioxide 22 (21-32) mEq/L Anion Gap 17.6 H (5-15) BUN 17 (7-18) mg/dL Creatinine 1.2 (0.7-1.3) mg/dL Est Cr Clr Drug Dosing 61.96 mL/min Estimated GFR (MDRD) 59 (>60) mL/min BUN/Creatinine Ratio 14.2 (14-18) Glucose 203 H (83-115) mg/dL Lactic Acid (0.4-2.0) mmol/L Calcium 8.5 (8.5-10.1) mg/dL Total Bilirubin 0.8 (0.2-1.0) mg/dL AST 126 H (15-37) U/L ALT 45 (16-63) U/L Alkaline Phosphatase 138 H (46-116) U/L Lactate Dehydrogenase 980 H (85-227) U/L Troponin I 0.172 H* (0.00-0.056) ng/mL C-Reactive Protein 42.9 H* (<1.0) mg/dL Total Protein 7.4 (6.4-8.2) g/dl Albumin 2.5 L (3.4-5.0) g/dl Globulin 4.9 gm/dL Albumin/Globulin Ratio 0.5 L (1-2) 06/02/20 06/02/20 Range/Units 10:54 11:05 WBC (4.23-9.07) K/mm3 RBC (4.63-6.08) M/mm3 Hgb (13.7-17.5) gm/dl Hct (40.1-51.0) % MCV (79.0-92.2) fl MCH (25.7-32.2) pg MCHC (32.2-35.5) g/dl RDW Std Deviation (35.1-43.9) fL Plt Count (163-337) K/mm3 MPV (9.4-12.3) fl Neut % (Auto) (34.0-67.9) % Lymph % (Auto) (21.8-53.1) % [facility] % (Auto) (5.3-12.2) % Eos % (Auto) (0.8-7.0) Baso % (Auto) (0.1-1.2) % Neut # (Auto) (1.78-5.38) K/mm3 Lymph # (Auto) (1.32-3.57) K/mm3 [facility] # (Auto) (0.30-0.82) K/mm3 Eos # (Auto) (0.04-0.54) K/mm3 Baso # (Auto) (0.01-0.08) K/mm3 Manual Slide Review PT (9.7-11.7) SECONDS INR APTT (22-31) SECONDS D-Dimer, Quantitative (0.19-0.50) mg/L Puncture Site Lt radial ABG pH 7.44 (7.35-7.45) ABG pCO2 23.6 L (35.0-45.0) mmHg ABG pO2 62.0 L (80.0-100.0) mmHg ABG HCO3 15.8 L (22.0-26.0) meq/L ABG O2 Saturation 91.7 L (96.0-97.0) % ABG Base Excess -6.1 L (-2-2.0) Vil[place] Test Positive A-a Gradient 336 mmHg O2 Delivery Device Simple mask Oxygen Flow Rate 10.0 FiO2 60.00 (21.00-100.00) % Sodium (136-145) mEq/L Potassium (3.5-5.1) mEq/L Chloride (98-107) mEq/L Carbon Dioxide (21-32) mEq/L Anion Gap (5-15) BUN (7-18) mg/dL Creatinine (0.7-1.3) mg/dL Est Cr Clr Drug Dosing mL/min Estimated GFR (MDRD) (>60) mL/min BUN/Creatinine Ratio (14-18) Glucose (83-115) mg/dL Lactic Acid 2.4 H* (0.4-2.0) mmol/L Calcium (8.5-10.1) mg/dL Total Bilirubin (0.2-1.0) mg/dL AST (15-37) U/L ALT (16-63) U/L Alkaline Phosphatase (46-116) U/L Lactate Dehydrogenase (85-227) U/L Troponin I (0.00-0.056) ng/mL C-Reactive Protein (<1.0) mg/dL Total Protein (6.4-8.2) g/dl Albumin (3.4-5.0) g/dl Globulin gm/dL Albumin/Globulin Ratio (1-2) Meds: Medications Discontinued Medications Generic Name Dose Route Start Last Admin Trade Name Freq PRN Reason Stop Dose Admin Hydromorphone HCl 1 mg 06/02/20 13:12 06/02/20 13:34 Dilaudid IVPUSH 06/02/20 13:13 1 mg ONETIME ONE Administration Sodium Chloride 1,000 mls @ 1,000 mls/hr 06/02/20 12:40 06/02/20 12:45 Normal Saline IV 06/02/20 13:39 1,000 mls/hr ONETIME ONE Administration Sodium Chloride 100 mls @ 75 mls/hr 06/02/20 13:15 Normal Saline IV ASDIRECTED NEETA Iopamidol 50 ml 06/02/20 13:11 06/02/20 17:01 Isovue-370 (76%) IVPUSH 06/02/20 13:12 Not Given ONETIME ONE Iopamidol 100 ml 06/02/20 13:11 06/02/20 17:01 Isovue-370 (76%) IVPUSH 06/02/20 13:12 Not Given ONETIME ONE Lorazepam 1 mg 06/02/20 15:38 06/02/20 15:58 Ativan IVPUSH 06/02/20 15:39 1 mg ONETIME ONE Administration Lorazepam 1 mg 06/02/20 20:59 06/03/20 02:37 Ativan IVPUSH 1 mg Q6H PRN Administration Agitation Morphine Sulfate 8 mg 06/02/20 15:38 06/02/20 15:58 Morphine IVPUSH 06/02/20 15:39 8 mg ONETIME ONE Administration Morphine Sulfate Confirm 06/02/20 21:05 06/02/20 21:26 Morphine Administered 06/02/20 21:06 Not Given Dose 10 mg .ROUTE .STK-MED ONE Morphine Sulfate 10 mg 06/02/20 21:07 Morphine IVPUSH Q4H PRN Pain Morphine Sulfate 8 mg 06/02/20 21:08 06/03/20 02:49 Morphine IVPUSH 8 mg Q4H PRN Administration Pain Morphine Sulfate Confirm 06/03/20 02:33 06/03/20 04:08 Morphine Administered 06/03/20 02:34 Not Given Dose 8 mg .ROUTE .STK-MED ONE Sodium Chloride 10 ml 06/02/20 10:34 06/02/20 10:05 Saline Flush FLUSH 10 ml ASDIRECTED PRN Administration Keep Vein Open Sodium Chloride 10 ml 06/02/20 13:11 06/02/20 14:31 Saline Flush FLUSH 10 ml ONETIME PRN Administration IV FLUSH - Re-Assessments/Exams Free Text/Narrative Re-Assessment/Exam: 06/02/20 15:52 I ordered oxygen, IV NS 1L bolus, EKG, CXR, labs, ABG and lactic acid. His EKG shows a sinus tachycardia with no acute changes. His CXR shows bilateral infiltrates. His CBC looks good. His D-dimer was elevated at 10.49. His pH was 7.44. His pCO2 was low at 23.6. His pO2 was low at 6.2. His Na was low at 132. His anion gap was elevated at 17.6. His glucose was 203. His lactic acid is 2.4. His AST was elevated at 126. His alk phos was elevated at 138. His LDH was elevated at 983. His troponin is elevated at 0.172. His CRP was elevated at 42.9. I was going to order a CT angio of his chest. My nurse said he does not want to keep the oxygen on. I went to talk to him and he says "I am done." He just wants to . He was alert and orientated and wants even the IV stopped. I called his sonthaddeus Messer and he is aware of his father's wishes. They talked about it and he supports his right to stop all efforts. Both wanted him to be comfortable. I have ordered some dilaudid 1mg IV. I also ordered some morphine 8mg IV and ativan 1mg IV later. 06/02/20 16:03 The patient will be comfort care. We do not have beds here and [facility] cannot take him back. [facility] are full at this time. He will stay in the ER for comfort care until we can find a place for him. 06/03/20 06:59 The patient at 03:29 this morning. Departure - Departure Time of Disposition: 07:00 Disposition: 20 Clinical Impression: COVID-19, Pneumonia due to COVID-19 virus Respiratory failure with hypoxia Qualifiers: Chronicity: acute Qualified Code(s): J96.01 - Acute respiratory failure with hypoxia - Discharge Information Referrals: Nestor Flores MD [Primary Care Provider] - Forms: ED Department Discharge Sepsis Event Note (ED) - Evaluation Sepsis Screening Result: Possible Sepsis Risk - My Orders Last 24 Hours: My Active Orders 06/02/20 10:34 Saline Lock Insert [OM.PC] Stat 06/02/20 10:35 Chest 1V Frontal [CR] Stat Blood Culture x2 Reflex Set [OM.PC] Stat 06/02/20 10:55 CULTURE BLOOD [BC] Stat 06/02/20 11:05 CULTURE BLOOD [BC] Stat - Assessment/Plan Last 24 Hours: My Active Orders 06/02/20 10:34 Saline Lock Insert [OM.PC] Stat 06/02/20 10:35 Chest 1V Frontal [CR] Stat Blood Culture x2 Reflex Set [OM.PC] Stat 06/02/20 10:55 CULTURE BLOOD [BC] Stat 06/02/20 11:05 CULTURE BLOOD [BC] Stat
[2020-06-02] MEDS ORDERED: Morphine 4 MG/ML VIAL IVPUSH PRN (20:59)
[2020-06-02] MEDS ORDERED: Morphine 2 MG/ML SYRINGE IVPUSH PRN (21:07)
[2020-06-02] MEDS: Morphine 10 MG/ML SDV ONE ×2 (21:13→21:26)
[2020-06-02] MEDS: Morphine 2 MG/ML SYRINGE IVPUSH PRN (21:13)
[2020-06-02] MEDS: LORazepam 2 MG/ML SDV IVPUSH PRN (21:16)
[2020-06-03] MEDS: Morphine 2 MG/ML SYRINGE IVPUSH PRN ×2 (00:18→02:49)
[2020-06-03] MEDS ORDERED: Morphine 4 MG/ML Syringe ONE (02:33)
[2020-06-03] MEDS: LORazepam 2 MG/ML SDV IVPUSH PRN (02:37)
--- NOTE | 2020-07-14 13:35 | CR ---
PROCEDURE INFORMATION: Exam: XR Chest, 1 View Exam date and time: 06/02/2020 10:53 AM Age: 74 years old Clinical indication: Chest pain TECHNIQUE: Imaging protocol: XR of the chest Views: 1 view. COMPARISON: CR Chest 1V Frontal 05/30/2020 8:36 PM FINDINGS: Tubes, catheters and devices: There are sternal wires consistent with previous sternotomy incision. Lungs: Patchy nonspecific ground-glass opacities are seen in both lungs more on the left than the right. These are more pronounced than the prior study. Pleural space: There are no pleural effusions present. Heart/Mediastinum: The heart is not enlarged. A left atrial exclusion device is in place as before. Bones/joints: Unremarkable IMPRESSION: Nonspecific patchy ground-glass opacities in both lungs more pronounced on the left than the right. Thank you for allowing us to participate in the care of your patient. Dictated and Authenticated by: Esau Chavez MD 07/14/2020 2:14 PM Central Time ([place] & [place]) [place]
== END 2020-06-03 05:00 | disposition expired ==
LOC: JD.ED 10:00
DX: U07.1 COVID-19 (principal); J12.89 Other viral pneumonia; J96.01 Acute respiratory failure with hypoxia; I48.91 Unspecified atrial fibrillation; E78.00 Pure hypercholesterolemia, unspecified; I10 Essential (primary) hypertension; K21.9 Gastro-esophageal reflux disease without esophagitis; F31.9 Bipolar disorder, unspecified; F41.9 Anxiety disorder, unspecified; I25.2 Old myocardial infarction; R56.9 Unspecified convulsions; E11.42 Type 2 diabetes mellitus with diabetic polyneuropathy; E03.9 Hypothyroidism, unspecified; Z87.891 Personal history of nicotine dependence; Z79.01 Long term (current) use of anticoagulants; Z79.899 Other long term (current) drug therapy; Z86.718 Personal history of other venous thrombosis and embolism; Z86.711 Personal history of pulmonary embolism
CPT/HCPCS: 36415; 36600; 71045; 80053; 82803; 83605; 83615; 84484; 85025; 85379; 85610; 85730; 86140; 87040; 93005; 96374; 96375; 96376; 99285; J1170; J2060; J2270; J7030; 93010